=== PATIENT | female | born 1965 | race Caucasian/White ===

== ENCOUNTER → 2016-03-27 | Outpatient (CLI) | payer BC ==
[~2016-03-27] MED LIST: ADVIN25/60 INH; ALBU18002 INH; ALBU1AER9 INH; AMOX500C3 PO; CETI10TA10 PO; CHOL400T PO; CHOLTAB3 PO; CITA10TA8 PO; CYAN500T PO; DAPA1TAB2 PO; DICY20TA35 PO; FLNIN/ NAE; GUAI100L2 PO; HMLI SC; INSDGI SC; LOSA1TAB PO; MAGN400T6 PO; METF500T5 PO; MONT1TAB3 PO; NF34 TOP; NVLGI/PEN SC; OMEP20CA9 PO; PRAV20TA PO; PRED20TA PO; TRAZ50TA35 PO
--- NOTE | 2016-03-27 16:44 | MAMMOGRAPHY REPORT ---
BILATERAL DIGITAL SCREENING MAMMOGRAM TOMOSYNTHESIS WITH CAD: 03/27/2016 CLINICAL HISTORY: Routine screening examination. TECHNIQUE: Breast tomosynthesis in addition to standard 2D mammography was performed. Current study was also evaluated with a Computer Aided Detection (CAD) system. COMPARISON: Comparison is made to exams dated: 03/23/2015 mammogram, 03/18/2014 mammogram, 03/14/2012 m ammogram, 03/17/2013 mammogram, 03/09/2011 mammogram, and 03/11/2010 mammogram - [facility]. BREAST COMPOSITION: The tissue of both breasts is heterogeneously dense, which may obscure small ma sses. FINDINGS: There are decreasing masses in the left breast most likely representing fluctuating cysts. There are a few benign appearing microcalcifications stable in each breast. No new suspicious mas s, architectural distortion or cluster of microcalcifications is seen. IMPRESSION: ACR BI-RADS CATEGORY 1: NEGATIVE There is no mammographic evidence of malignancy. A 1 year screening mammogram is recommended. The p atient will receive written notification of the results. Approximately 10% of breast cancers are not detected with mammography. A negative mammographic repor t should not delay biopsy if a clinically suggestive mass is present. Rachel Machuca M.D. ay/:03/27/2016 16:36:08 Supervisor [employer]: Karissa BRICENO)([place]), [facility] letter sent: Normal 1/2 BI-RADS Code: ACR BI-RADS Category 1: Negative
== END | disposition home or self-care (01) ==
LOC: C.MAMM 07:18
PROVIDERS: ATTEND Obstetrics & Gynecology
DX: Z12.31 Encounter for screening mammogram for malignant neoplasm of breast (principal)

== ENCOUNTER 2016-08-23 22:49 | Emergency (ER) | payer BC, OTHER ==
[~2016-08-23] VITALS: Ht 154.9 cm; Wt 93.9 kg
[~2016-08-23 22:49] MED LIST changes: -ALBU18002 INH; -CETI10TA10 PO; -CHOL400T PO; -DAPA1TAB2 PO; -NVLGI/PEN SC; -TRAZ50TA35 PO
[2016-08-23 22:52] VITALS: TEMP 36.6; Ht 154.9 cm; Wt 93.9 kg
[2016-08-23] MEDS ORDERED: CHOL400T PO (23:20)
[2016-08-23] MEDS ORDERED: INSDGI SC (23:20)
[2016-08-23] MEDS ORDERED: ALBU18002 INH (23:20)
[2016-08-23] MEDS ORDERED: NVLGI/PEN SC (23:20)
[2016-08-23] MEDS ORDERED: DAPA1TAB2 PO (23:20)
[2016-08-23] MEDS ORDERED: CETI10TA10 PO (23:20)
[2016-08-23] MEDS ORDERED: TRAZ50TA35 PO (23:20)
--- NOTE | 2016-08-23 23:24 | EMERGENCY ROOM VISIT NOTE ---
History Report prepared by Maria Victoria: Santana Humphries Under the Supervision of: Dr. Marcelle Freeman D.O. First contact with patient: 22:56 Chief Complaint: OTHER COMPLAINT Stated Complaint: OVERDOSED ON INSULIN History of Present Illness The patient is a 50 year old female who presents to the Emergency Room after accidentally overdosing on her insulin medication approximately 30 minutes prior to arrival. The patient states that she took her "fast acting" insulin medication this evening as she normally would. She then went to take her dosage of prolonged acting insulin, and accidentally substituted her fast acting medication and grossly overdosed. The patient's blood sugar was 187 immediately following the overdose, and was 140 upon arrival to the Emergency Department. The patient states that she does not have low blood sugars often, but when she does she firsts presents with light headedness. She also notes that she was exercising this evening, which can also lower her blood sugars. She is not lightheaded at this time. Source of History: patient Onset: 30 minutes [employer] Position: other (Accidental Medication overdose) Quality: other (Insulin overdose, accidental) Note: Denies light headedness. Review of Systems See HPI for pertinent positives & negatives. A total of 10 systems reviewed and were otherwise negative. Past Medical & Surgical Medical Problems: (1) Asthma (2) Bicuspid aortic valve (3) Diabetes (4) Gastroesophageal reflux disease (5) [place] Teeth Removal Diabetes Social History Smoking Status: Never Smoker Alcohol Use: none Marital Status: Housing Status: lives with family Occupation Status: employed Current/Historical Medications Scheduled Amoxicillin (Amoxil), 2,000 MG PO UD Cetirizine Hcl (Zyrtec), 10 MG PO HS Cholecalciferol (Vitamin D), 400 UNITS PO DAILY Citalopram Hydrobromide (Celexa), 10 MG PO HS Clobetasol Propionate (Clobetasol Propionate), 1 DOSE TOP TW Cyanocobalamin (Vitamin B-12), 500 MCG PO DAILY Dapagliflozin Propanediol (Farxiga), 10 MG PO DAILY Insulin Aspart (Novolog Flexpen), Unknown Dose SC AC Insulin Glargine (Lantus), 27 UNITS SC QPM Losartan Potassium (Cozaar), 25 MG PO HS Magnesium Oxide (Mag-Ox), 400 MG PO BID Montelukast Sodium (Singulair), 10 MG PO HS Omeprazole (Prilosec), 20 MG PO BID Pravastatin Sodium (Pravachol), 20 MG PO HS Scheduled PRN Albuterol Sulfate (Proair Respiclick), 2 PUFFS INH Q4H PRN for SOB/Wheezing Dicyclomine Hcl (Bentyl), 20 MG PO Q6 PRN for ABD PAIN Fluticasone Prop/Salmeterol (Advair Diskus 250/50 60 Dose), 1 PUFF INH BID PRN for ILLNESS Trazodone Hcl (Trazodone), 50 MG PO HS PRN for Sleep Allergies Coded Allergies: Morphine (Verified Allergy, Unknown, VOMITING, NAUSEA, 08/23/16) Pseudoephedrine (Verified Allergy, Unknown, `, 08/23/16) Sulfa Drugs (Verified Allergy, Unknown, 08/23/16) Simvastatin (Verified Adverse Reaction, Intermediate, MUSCLE PAIN, 08/23/16) Physical Exam Vital Signs Date Time Temp Pulse Resp B/P (MAP) Pulse Ox O2 Delivery O2 Flow Rate FiO2 08/24/16 02:19 69 17 120/64 96 08/24/16 01:38 68 16 131/61 96 Room Air 08/23/16 22:52 36.6 72 18 119/66 97 Room Air Physical Exam HEENT: Head - normocephalic and atraumatic Pupils are equal, round, and reactive to light. Extraocular eye muscles are intact, and sclera are anicteric. Nose - moist nasal mucosa without discharge. Mouth - moist buccal mucosa. Oropharynx is nonerythematous and there is no tonsillar exudate or edema noted. Neck: Supple; no JVD, nuchal rigidity, cervical lymphadenopathy. Heart: Regular rate and rhythm. There is a normal S1 and S2 with no murmurs, clicks, or gallops appreciated. Lungs: Clear to auscultation bilaterally with no wheezes, rales, or rhonchi. Abdomen: Soft, completely nontender, nondistended, with good bowel sounds. There are no palpable pulsatile masses or hepatosplenomegaly. There is no guarding, rigidity, or rebound noted. Extremities: No evidence of cyanosis, clubbing, or edema. There are easily palpable peripheral pulses. Skin: warm and dry with good turgor and no rashes. Medical Decision & Procedures Laboratory Results Test 08/24/16 02:11 Bedside Glucose 114 mg/dl (70-90) Laboratory results per my review. ED Course 2300: Past medical records reviewed. The patient was evaluated in room B9. A complete history and physical exam was performed. An IV lock was initiated and labs were drawn as above. The patient's blood sugar was monitored closely. 2311: I checked on the patient at this time. The blood sugar is now 116. 0158: Upon reevaluation, the patient is feeling much better and is ready to go home. The patient's blood sugar remained stable while she was eating. I discussed findings and results with her. She verbalized agreement of the treatment plan. The patient was discharged home. Medical Decision Patient was found to have normal blood pressure on screening and does not require follow-up. I attest that I have personally reviewed the patient's current medication list. The patient is a 50 year old female who presents to the Emergency Department for an accidental Insulin overdose. The patient's blood sugar was monitored closely. The half-life of NovoLog insulin is approximately 1 hour and 40 minutes. She never had an episode of hypoglycemia. She continues to eat. I have asked her to watch her blood sugar at home at least once an hour over the next 2 hours. She should return to the emergency department she develops any symptoms. Impression Primary Impression: Insulin overdose Scribe Attestation The scribe's documentation has been prepared under my direction and personally reviewed by me in its entirety. I confirm that the note above accurately reflects all work, treatment, procedures, and medical decision making performed by me. Departure Information Dispostion Home / Self-Care Referrals Trung Mayberry M.D. (PCP) Forms HOME CARE DOCUMENTATION FORM, IMPORTANT VISIT INFORMATION, WORK / SCHOOL INSTRUCTIONS Patient Instructions My [facility] Additional Instructions Rest. Watch your BSG hourly for next 2 hours Problem Qualifiers Primary Impression: Insulin overdose Encounter type: initial encounter Injury intent: accidental or unintentional Qualified Codes: T38.3X1A - Poisoning by insulin and oral hypoglycemic [antidiabetic] drugs, accidental (unintentional), initial encounter
[2016-08-24 02:19] VITALS: BP 120/64; PULSE 69; O2SAT 96
== END 2016-08-24 02:20 | disposition home or self-care (01) ==
LOC: C.EDB 22:51
DX: T38.3X1A Poisoning by insulin and oral hypoglycemic [antidiabetic] drugs, accidental (unintentional), initial encounter (principal); E11.9 Type 2 diabetes mellitus without complications; K21.9 Gastro-esophageal reflux disease without esophagitis; J45.909 Unspecified asthma, uncomplicated; Z79.4 Long term (current) use of insulin; Z79.899 Other long term (current) drug therapy; Z88.2 Allergy status to sulfonamides; Z88.5 Allergy status to narcotic agent; Z88.8 Allergy status to other drugs, medicaments and biological substances

== ENCOUNTER 2017-02-24 22:31 | Emergency (ER) | payer BC, OTHER ==
[~2017-02-24] VITALS: Ht 154.9 cm; Wt 93.8 kg
[~2017-02-24 22:31] MED LIST changes: +ALBU18002 INH; -ALBU1AER9 INH; +CETI10TA10 PO; +CHOL400T PO; -CHOLTAB3 PO; +DAPA1TAB8 PO; -FLNIN/ NAE; -GUAI100L2 PO; -HMLI SC; -METF500T5 PO; +NVLGI/PEN SC; -PRED20TA PO; +TRAZ50TA35 PO
[2017-02-24 22:40] VITALS: TEMP 36.5; Ht 154.9 cm; Wt 93.8 kg
[2017-02-25] MEDS ORDERED: ONDANSETRON INJ 2 MG/ML 2 ML VIAL IV STA (00:07)
[2017-02-25] MEDS ORDERED: SODIUM CHLORIDE 0.9% 1000ML 1,000 ML IV STA (00:07)
[2017-02-25] MEDS ORDERED: NALT1TAB14 PO (00:12)
[2017-02-25] MEDS ORDERED: ROSU40TA PO (00:14)
[2017-02-25 00:17] LABS: BASO % 0.1 %; BASO ABS # 0.01 K/uL (0-0.2); EOS % 2.1 %; EOS ABS # 0.21 K/uL (0-0.5); HEMATOCRIT 44.7 % (37-47); HEMOGLOBIN 14.8 g/dL (12.0-16.0); IG# 0.03 K/uL (0.00-0.02); LYMPH % 7.6 %; LYMPH ABS # 0.75 K/uL (1.2-3.4); MEAN CELL VOLUME 78.4 fL (80-100); MEAN CORPUSCULAR HGB CONC 33.1 g/dl (32-36); MEAN PLATELET VOLUME 9.5 fL (7.4-10.4); MONO % 2.4 %; MONO ABS # 0.24 K/uL (0.11-0.59); NEUT % 87.5 %; NEUT ABS # 8.64 K/uL (1.4-6.5); PLATELET COUNT 262 K/uL (130-400); RED CELL DISTRIBUTION WIDTH CV 15.3 % (11.5-14.5); RED CELL DISTRIBUTION WIDTH SD 43.4 fL (36.4-46.3); WHITE BLOOD COUNT 9.88 K/uL (4.8-10.8)
[2017-02-25] MEDS ORDERED: MONT1TAB3 PO (00:21)
[2017-02-25 00:25] LABS: ALBUMIN 4.2 gm/dl (3.4-5.0); CALCIUM 8.7 mg/dl (8.5-10.1); CREATININE 0.98 mg/dl (0.60-1.20); POTASSIUM 4.1 mmol/L (3.5-5.1)
[2017-02-25 00:28] LABS: TOTAL PROTEIN 8.2 gm/dl (6.4-8.2)
[2017-02-25] MEDS ORDERED: ONDA4TAB10 SL (01:29)
--- NOTE | 2017-02-25 01:29 | EMERGENCY ROOM VISIT NOTE ---
History Report prepared by Maria Victoria: Brett Singleton Under the Supervision of: Dr. Oseas Leggett D.O. First contact with patient: 23:12 Chief Complaint: VOMITING Stated Complaint: VOMITING, SOILING, STOMACH PAIN Nursing Triage Summary: c/o vomiting, diarrhea and abd pain since 1700. History of Present Illness The patient is a 51 year old female who presents to the Emergency Room with complaints of worsening abdominal pain that began 4 hours ago. She has associated symptoms of vomiting and diarrhea. Patient adds that she has been unable to keep anything down. She states she has had vomiting and diarrhea symptoms before but the abdominal pain is unusual. Patient adds that she has been diabetic for 2 years. She currently takes Farxiga. She states she woke up this morning feeling nauseas but her nausea was resolved after she ate breakfast. Patient adds that she has only used her insulin once today. Source of History: patient Onset: 4 hours ago Position: abdomen Timing: worsening Associated Symptoms: + vomiting, + diarrhea Review of Systems See HPI for pertinent positives & negatives. A total of 10 systems reviewed and were otherwise negative. Past Medical & Surgical Medical Problems: (1) Asthma (2) Bicuspid aortic valve (3) Diabetes (4) Gastroesophageal reflux disease (5) [place] Teeth Removal Family History No pertinent family history. Social History Smoking Status: Never Smoker Alcohol Use: none Marital Status: Housing Status: lives with family Occupation Status: employed Current/Historical Medications Scheduled Amoxicillin (Amoxil), 2,000 MG PO UD Cetirizine Hcl (Zyrtec), 10 MG PO HS Cholecalciferol (Vitamin D), 400 UNITS PO DAILY Citalopram Hydrobromide (Celexa), 10 MG PO HS Clobetasol Propionate (Clobetasol Propionate), 1 DOSE TOP TW Cyanocobalamin (Vitamin B-12), 500 MCG PO DAILY Dapagliflozin Propanediol (Farxiga), 10 MG PO DAILY Insulin Aspart (Novolog Flexpen), Unknown Dose SC AC Insulin Glargine (Lantus), 27 UNITS SC QPM Losartan Potassium (Cozaar), 25 MG PO HS Magnesium Oxide (Mag-Ox), 400 MG PO BID Montelukast Sodium (Singulair), 10 MG PO HS Naltrexone HCl-Bupropion HCl (Contrave 8-90 mg), 2 TABS PO BIDM Omeprazole (Prilosec), 20 MG PO BID Ondasetron Odt (Zofran Odt), 4 MG SL Q6H Pravastatin Sodium (Pravachol), 20 MG PO HS Scheduled PRN Albuterol Sulfate (Proair Respiclick), 2 PUFFS INH Q4H PRN for SOB/Wheezing Dicyclomine Hcl (Bentyl), 20 MG PO Q6 PRN for ABD PAIN Fluticasone Prop/Salmeterol (Advair Diskus 250/50 60 Dose), 1 PUFF INH BID PRN for ILLNESS Trazodone Hcl (Trazodone), 50 MG PO HS PRN for Sleep Allergies Coded Allergies: Morphine (Verified Allergy, Unknown, VOMITING, NAUSEA, 08/23/16) Pseudoephedrine (Verified Allergy, Unknown, `, 08/23/16) Sulfa Drugs (Verified Allergy, Unknown, 08/23/16) Simvastatin (Verified Adverse Reaction, Intermediate, MUSCLE PAIN, 08/23/16) Physical Exam Vital Signs Date Time Temp Pulse Resp B/P (MAP) Pulse Ox O2 Delivery O2 Flow Rate FiO2 02/25/17 00:34 93 20 142/92 96 Room Air 02/24/17 22:40 36.5 95 20 123/87 94 Room Air Physical Exam CONSTITUTIONAL/VITAL SIGNS: Reviewed / noted above. GENERAL: Non-toxic in appearance. INTEGUMENTARY: Warm, dry, and [place]. HEAD: Normocephalic. EYES: without scleral icterus or trauma. ENT/OROPHARYNX: clear and moist. LYMPHADENOPATHY/NECK: Is supple without lymphadenopathy or meningismus. RESPIRATORY: Lungs clear and equal. CARDIOVASCULAR: Regular rate and rhythm. GI/ABDOMEN: Soft and nontender. No organomegaly or pulsatile mass. No rebound or guarding. Normal bowel sounds. EXTREMITIES: Warm and well perfused. BACK: No CVA tenderness. NEUROLOGICAL: Intact without focal deficits. PSYCHIATRIC: normal affect. MUSCULOSKELETAL: Normally developed with good muscle tone. Medical Decision & Procedures Laboratory Results 02/24/17 22:54 Red Blood Count 5.70, Mean Corpuscular Volume 78.4, Mean Corpuscular Hemoglobin 26.0, Mean Corpuscular Hemoglobin Concent 33.1, Mean Platelet Volume 9.5, Neutrophils (%) (Auto) 87.5, Lymphocytes (%) (Auto) 7.6, Monocytes (%) (Auto) 2.4, Eosinophils (%) (Auto) 2.1, Basophils (%) (Auto) 0.1, Neutrophils # (Auto) 8.64, Lymphocytes # (Auto) 0.75, Monocytes # (Auto) 0.24, Eosinophils # (Auto) 0.21, Basophils # (Auto) 0.01 02/24/17 22:54 Test 02/24/17 22:54 02/25/17 00:30 White Blood Count 9.88 K/uL (4.8-10.8) Red Blood Count 5.70 M/uL (4.2-5.4) Hemoglobin 14.8 g/dL (12.0-16.0) Hematocrit 44.7 % (37-47) Mean Corpuscular Volume 78.4 fL (80-100) Mean Corpuscular Hemoglobin 26.0 pg (25-34) Mean Corpuscular Hemoglobin Concent 33.1 g/dl (32-36) Platelet Count 262 K/uL (130-400) Mean Platelet Volume 9.5 fL (7.4-10.4) Neutrophils (%) (Auto) 87.5 % Lymphocytes (%) (Auto) 7.6 % Monocytes (%) (Auto) 2.4 % Eosinophils (%) (Auto) 2.1 % Basophils (%) (Auto) 0.1 % Neutrophils # (Auto) 8.64 K/uL (1.4-6.5) Lymphocytes # (Auto) 0.75 K/uL (1.2-3.4) Monocytes # (Auto) 0.24 K/uL (0.11-0.59) Eosinophils # (Auto) 0.21 K/uL (0-0.5) Basophils # (Auto) 0.01 K/uL (0-0.2) RDW Standard Deviation 43.4 fL (36.4-46.3) RDW Coefficient of Variation 15.3 % (11.5-14.5) Immature Granulocyte % (Auto) 0.3 % Immature Granulocyte # (Auto) 0.03 K/uL (0.00-0.02) Anion Gap 8.0 mmol/L (3-11) Est Creatinine Clear Calc Drug Dose 71.0 ml/min Estimated GFR () 77.4 Estimated GFR (Non- 66.8 BUN/Creatinine Ratio 13.8 (10-20) Calcium Level 8.7 mg/dl (8.5-10.1) Total Bilirubin 0.8 mg/dl (0.2-1) Direct Bilirubin 0.1 mg/dl (0-0.2) Aspartate Amino Transf (AST/SGOT) 20 U/L (15-37) Alanine Aminotransferase (ALT/SGPT) 31 U/L (12-78) Alkaline Phosphatase 98 U/L (45-117) Total Protein 8.2 gm/dl (6.4-8.2) Albumin 4.2 gm/dl (3.4-5.0) Lipase 163 U/L (73-393) Urine Color YELLOW Urine Appearance CLEAR (CLEAR) Urine pH 5.5 (4.5-7.5) Urine Specific [place] 1.037 (1.000-1.030) Urine Protein NEG (NEG) Urine Glucose (UA) 3+ (NEG) Urine Ketones 3+ (NEG) Urine Occult Blood NEG (NEG) Urine Nitrite NEG (NEG) Urine Bilirubin NEG (NEG) Urine Urobilinogen NEG (NEG) Urine Leukocyte Esterase NEG (NEG) Urine WBC (Auto) 1-5 /hpf (0-5) Urine RBC (Auto) 0-4 /hpf (0-4) Urine Hyaline Casts (Auto) 0 /lpf (0-5) Urine Epithelial Cells (Auto) 5-10 /lpf (0-5) Urine Bacteria (Auto) NEG (NEG) Laboratory results as stated above per my review. Medications Administered Medications (Trade) Dose Ordered Sig/Javier Route Start Time Stop Time Status Last Admin Dose Admin Sodium Chloride 1,000 ml @ 999 mls/hr Q1H1M STAT IV 02/25/17 00:07 02/25/17 01:07 DC 02/25/17 00:14 999 MLS/HR Ondansetron HCl (Zofran Inj) 4 mg NOW STAT IV 02/25/17 00:07 02/25/17 00:08 DC 02/25/17 00:12 4 MG ED Course 2315: Previous medical records were reviewed. The patient was evaluated in room A9B. A complete history and physical examination was performed. 0007: Zofran Inj 4mg IV, Sodium Chloride 1000 ml @ 999 mls/hr IV 0110: On reevaluation, the patient is resting comfortably. I discussed the results and findings with the patient. She verbalized agreement of the treatment plan. She was discharged home. Medical Decision Differential considered: pancreatitis, hepatitis, or acute cholecystitis, AAA, UTI, pyelonephritis, kidney stones, appendicitis, diverticulitis, shingles, bowel obstruction mesenteric ischemia, intussusception,hernia, testicular torsion, ovarian torsion, ruptured ovarian cyst,ectopic , . This is a 51-year-old female who presents to the ED with a chief complaint of nausea, vomiting and diarrhea. The patient states that her symptoms started around 5 PM. She also reported some abdominal cramps associated with the vomiting and diarrhea. She reports a history of diabetes. She states that she feels like she might be dehydrated. She denies any other significant symptoms. Her physical exam did not reveal any focal abdominal tenderness. Her CBC is unremarkable, complete metabolic panel was within normal limits, glucose was 164 , lipase was negative. Urine shows 3+ ketones. The patient was hydrated with IV fluids 1 L normal saline. She was given Zofran IV. She will be discharged on Zofran ODT. Medication Reconcilliation Current Medication List: was personally reviewed by me Blood Pressure Screening Patient's blood pressure: Normal blood pressure Blood pressure disposition: Did not require urgent referral Impression Primary Impression: Nausea, vomiting, and diarrhea Scribe Attestation The scribe's documentation has been prepared under my direction and personally reviewed by me in its entirety. I confirm that the note above accurately reflects all work, treatment, procedures, and medical decision making performed by me. Departure Information Dispostion Home / Self-Care Prescriptions Ondasetron Odt (ZOFRAN ODT) 4 Mg Tab 4 MG SL Q6H for Nausea, #15 TAB Prov: Oseas Leggett D.O. 02/25/17 Referrals No Doctor, Assigned (PCP) Forms HOME CARE DOCUMENTATION FORM, IMPORTANT VISIT INFORMATION Patient Instructions [facility] Additional Instructions Zofran: Allow one tablet to dissolve under the tongue every 6 hours as needed for nausea or vomiting. Follow-up with your doctor for further care and evaluation in 1-2 days. Return to the emergency department for worsening or new symptoms or any concerns. You have been examined and treated today on an emergency basis only. This is not a substitute for, or an effort to provide, complete comprehensive medical care. It is impossible to recognize and treat all injuries or illnesses in a single emergency department visit. It is therefore important that you follow up closely with your doctor. Call as soon as possible for an appointment.
[2017-02-25 01:39] VITALS: BP 123/72; PULSE 90; O2SAT 92
== END 2017-02-25 01:48 | disposition home or self-care (01) ==
LOC: C.EDB 22:32 → C.EDA 02-25 01:48
DX: R11.2 Nausea with vomiting, unspecified (principal); R19.7 Diarrhea, unspecified; R10.9 Unspecified abdominal pain; E11.9 Type 2 diabetes mellitus without complications; J45.909 Unspecified asthma, uncomplicated; Q23.1 Congenital insufficiency of aortic valve; K21.9 Gastro-esophageal reflux disease without esophagitis; Z79.4 Long term (current) use of insulin

== ENCOUNTER 2017-09-26 13:45 | Emergency (ER) | payer BC, OTHER ==
[~2017-09-26] VITALS: Ht 154.9 cm; Wt 96.6 kg
[~2017-09-26 13:45] MED LIST changes: +NALT1TAB14 PO
[2017-09-26 14:03] VITALS: TEMP 37
[2017-09-26] MEDS ORDERED: DIAZEPAM INJ 5 MG/ML 2 ML CARP IV STA (14:20)
[2017-09-26] MEDS ORDERED: ONDANSETRON INJ 2 MG/ML 2 ML VIAL IV STA (14:20)
[2017-09-26] MEDS ORDERED: SODIUM CHLORIDE 0.9% 1000ML 1,000 ML IV STA (14:20)
[2017-09-26 14:24] VITALS: O2SAT 94; Ht 154.9 cm; Wt 96.6 kg
[2017-09-26] MEDS ORDERED: DIAZEPAM 5 MG/ML INJ 10ML VIAL ONE (14:32)
[2017-09-26 14:35] LABS: BASO % 0.5 %; BASO ABS # 0.03 K/uL (0-0.2); EOS % 5.5 %; EOS ABS # 0.35 K/uL (0-0.5); HEMATOCRIT 43.2 % (37-47); HEMOGLOBIN 15.2 g/dL (12.0-16.0); IG# 0.01 K/uL (0.00-0.02); LYMPH % 25.8 %; LYMPH ABS # 1.63 K/uL (1.2-3.4); MEAN CELL VOLUME 82.1 fL (80-100); MEAN CORPUSCULAR HEMOGLOBIN 28.9 pg (25-34); MEAN CORPUSCULAR HGB CONC 35.2 g/dl (32-36); MEAN PLATELET VOLUME 9.1 fL (7.4-10.4); MONO % 6.3 %; NEUT % 61.7 %; PLATELET COUNT 187 K/uL (130-400); RED CELL DISTRIBUTION WIDTH CV 13.1 % (11.5-14.5); RED CELL DISTRIBUTION WIDTH SD 39.2 fL (36.4-46.3); WHITE BLOOD COUNT 6.32 K/uL (4.8-10.8)
--- NOTE | 2017-09-26 14:41 | DIAGNOSTIC IMAGING REPORT ---
CHEST ONE VIEW PORTABLE CLINICAL HISTORY: 51 years-old Female presenting with EVALUATE ALTERED MENTAL STATUS/WEAKNESS. TECHNIQUE: Portable upright AP view of the chest was obtained. COMPARISON: 07/18/2015. FINDINGS: Cardiac silhouette mildly enlarged. Lungs and pleural spaces clear. Osseous structures normal. Upper abdomen normal. IMPRESSION: 1. Mild cardiomegaly suggested this may be due to AP technique. Otherwise no acute cardiopulmonary disease. Electronically signed by: Bjorn Montoya M.D. 09/26/2017 2:40 PM Dictated Date/Time: 09/26/2017 2:39 PM
[2017-09-26 14:48] LABS: PTT PATIENT 23.3 SECONDS (21.0-31.0)
--- NOTE | 2017-09-26 15:00 | DIAGNOSTIC IMAGING REPORT ---
HEAD CT NONCONTRAST CT DOSE: 679.75 mGycm HISTORY: EVALUATE ALTERED MENTAL STATUS/WEAKNESS TECHNIQUE: Multiaxial CT images of the head were performed without the use of intravenous contrast. Automated exposure control was utilized for this study. A dose lowering technique was utilized adhering to the principles of ALARA. Comparison: Head CT 12/12/2012. Findings: The paranasal sinuses and mastoid air cells are clear. The calvarium and skull base are intact. The ventricles and sulci are within normal limits. There is no mass, hematoma, midline shift, or acute infarct. Impression: No acute intracranial abnormality. Electronically signed by: Munir Paul M.D. 09/26/2017 2:58 PM Dictated Date/Time: 09/26/2017 2:52 PM
[2017-09-26 15:12] LABS: ALBUMIN 3.7 gm/dl (3.4-5.0); ALKALINE PHOSPHATASE 86 U/L (45-117); ALT/SGPT 26 U/L (12-78); AST/SGOT 14 U/L (15-37); BLOOD UREA NITROGEN 16 mg/dl (7-18); CALCIUM 8.6 mg/dl (8.5-10.1); CARBON DIOXIDE 27 mmol/L (21-32); GLUCOSE 120 mg/dl (70-99); POTASSIUM 3.8 mmol/L (3.5-5.1); SODIUM 138 mmol/L (136-145); TOTAL PROTEIN 7.6 gm/dl (6.4-8.2)
[2017-09-26] MEDS ORDERED: ACETAMINOPHEN 500 MG TAB PO STA (15:21)
[2017-09-26] MEDS ORDERED: MECL1TAB42 PO (15:31)
[2017-09-26] MEDS ORDERED: ONDA4TAB10 SL (15:31)
[2017-09-26 15:45] VITALS: BP 115/71; PULSE 74; O2SAT 95
[2017-09-26] MEDS ORDERED: LIDOCAINE HCL 1% 20 ML VIAL ONE (16:14)
--- NOTE | 2017-09-26 18:04 | EMERGENCY ROOM VISIT NOTE ---
History Report prepared by Maria Victoria: Li Reyes Under the Supervision of: Dr. Michael Michel D.O. First contact with patient: 14:14 Chief Complaint: VERTIGO Stated Complaint: VERTIGO,VOMITING,HEADACHE,DIABETIC History of Present Illness The patient is a 51 year old female who presents to the Emergency Room with complaints of constant vertigo starting this morning. The patient states that she has a history of vertigo and last had a episode a few years ago. She notes that she intermittently gets it when she rolls over in bed, but it instantly goes away. She reports that she woke up with it this morning and is unable to control it at home. She reports that it feels like "more of a roll rather than a spin." The patient notes that it is worse when she stands up. She states that she vomits when she stands. The patient complains of nausea, a headache, and feeling off balance when she walks. The patient notes that she is a Diabetic and is not able to keep even liquids down. She states that she is unsure what her sugar levels are and last checked last night. The patient denies weakness, tinnitus, a history of CVA, and talking to her PCP about this episode. Source of History: patient Onset: this morning Quality: other (vertigo) Timing: constant Modifying Factors (Worsening): other (standing up) Associated Symptoms: + headache, + nausea, + vomiting, No weakness Note: The patient complains of feeling off balance when she walks. The patient denies tinnitus. Review of Systems See HPI for pertinent positives & negatives. A total of 10 systems reviewed and were otherwise negative. Past Medical & Surgical Medical Problems: (1) Asthma (2) Bicuspid aortic valve (3) Diabetes (4) Gastroesophageal reflux disease (5) Hx of vertigo (6) [place] Teeth Removal Family History Cancer Diabetes mellitus Gallbladder disease Heart disease Hypertension Social History Smoking Status: Never Smoker Alcohol Use: none Marital Status: Housing Status: lives with family Occupation Status: employed Current/Historical Medications Scheduled Amoxicillin (Amoxil), 2,000 MG PO UD Cetirizine Hcl (Zyrtec), 10 MG PO HS Cholecalciferol (Vitamin D), 400 UNITS PO DAILY Citalopram Hydrobromide (Celexa), 10 MG PO HS Clobetasol Propionate (Clobetasol Propionate), 1 DOSE TOP TW Cyanocobalamin (Vitamin B-12), 500 MCG PO DAILY Dapagliflozin Propanediol (Farxiga), 10 MG PO DAILY Insulin Aspart (Novolog Flexpen), Unknown Dose SC AC Insulin Glargine (Lantus), 27 UNITS SC QPM Losartan Potassium (Cozaar), 25 MG PO HS Magnesium Oxide (Mag-Ox), 400 MG PO BID Montelukast Sodium (Singulair), 10 MG PO HS Naltrexone HCl-Bupropion HCl (Contrave 8-90 mg), 2 TABS PO BIDM Omeprazole (Prilosec), 20 MG PO BID Ondasetron Odt (Zofran Odt), 4 MG SL Q6H Pravastatin Sodium (Pravachol), 20 MG PO HS Scheduled PRN Albuterol Sulfate (Proair Respiclick), 2 PUFFS INH Q4H PRN for SOB/Wheezing Dicyclomine Hcl (Bentyl), 20 MG PO Q6 PRN for ABD PAIN Fluticasone Prop/Salmeterol (Advair Diskus 250/50 60 Dose), 1 PUFF INH BID PRN for ILLNESS Meclizine Hcl (Meclizine Hcl), 1 TAB PO TID PRN for Dizziness or Vertigo Trazodone Hcl (Trazodone), 50 MG PO HS PRN for Sleep Allergies Coded Allergies: Morphine (Verified Allergy, Unknown, VOMITING, NAUSEA, 08/23/16) Pseudoephedrine (Verified Allergy, Unknown, `, 08/23/16) Sulfa Drugs (Verified Allergy, Unknown, 08/23/16) Simvastatin (Verified Adverse Reaction, Intermediate, MUSCLE PAIN, 08/23/16) Physical Exam Vital Signs Date Time Temp Pulse Resp B/P (MAP) Pulse Ox O2 Delivery O2 Flow Rate FiO2 09/26/17 15:45 74 16 115/71 95 09/26/17 15:35 70 14 95 09/26/17 15:31 115/71 09/26/17 15:30 69 16 90 09/26/17 15:25 73 17 91 09/26/17 15:20 68 15 91 09/26/17 15:15 70 16 90 09/26/17 15:10 67 18 92 09/26/17 15:09 68 16 132/66 94 Room Air 09/26/17 15:07 132/66 8/8/18 14:42 77 09/26/17 14:40 77 19 09/26/17 14:24 94 Room Air 09/26/17 14:03 37.0 78 20 119/80 93 Room Air Physical Exam GENERAL: Patient is awake, alert, and in no acute distress. Patient is resting comfortably and showing no signs of anxiety EYES: The conjunctivae are clear. The pupils are round and reactive. EARS, NOSE, MOUTH AND THROAT: TMs are clear bilaterally. The nose is without any evidence of any deformity. Mucous membranes are moist. Tongue is midline NECK: The neck is nontender and supple. RESPIRATORY: Normal respiratory effort is noted. There is no evidence of wheezing rhonchi or rales to auscultation. CARDIOVASCULAR: Regular rate and rhythm noted. There no murmurs rubs or gallops normal S1 normal S2 GASTROINTESTINAL: The abdomen is soft. Bowel sounds are present in all quadrants. Abdomen is nontender. MUSCULOSKELETAL/EXTREMITIES: There is no evidence of gross deformity. Full range of motion is noted in the hips and shoulders. SKIN: There is no obvious evidence of any rash. There are no petechiae, pallor or cyanosis noted. NEUROLOGIC: Patient is awake alert and oriented x3. Strength is symmetric. Patellar reflexes are 2+ bilaterally. Medical Decision & Procedures ER Provider Diagnostic Interpretation: Radiology results as stated below per my review and radiologist interpretation: HEAD CT NONCONTRAST CT DOSE: 679.75 mGycm HISTORY: EVALUATE ALTERED MENTAL STATUS/WEAKNESS TECHNIQUE: Multiaxial CT images of the head were performed without the use of intravenous contrast. Automated exposure control was utilized for this study. A dose lowering technique was utilized adhering to the principles of ALARA. Comparison: Head CT 12/12/2012. Findings: The paranasal sinuses and mastoid air cells are clear. The calvarium and skull base are intact. The ventricles and sulci are within normal limits. There is no mass, hematoma, midline shift, or acute infarct. Impression: No acute intracranial abnormality. Electronically signed by: Munir Paul M.D. 09/26/2017 2:58 PM Dictated Date/Time: 09/26/2017 2:52 PM CHEST ONE VIEW PORTABLE CLINICAL HISTORY: 51 years-old Female presenting with EVALUATE ALTERED MENTAL STATUS/WEAKNESS. TECHNIQUE: Portable upright AP view of the chest was obtained. COMPARISON: 07/18/2015. FINDINGS: Cardiac silhouette mildly enlarged. Lungs and pleural spaces clear. Osseous structures normal. Upper abdomen normal. IMPRESSION: 1. Mild cardiomegaly suggested this may be due to AP technique. Otherwise no acute cardiopulmonary disease. Electronically signed by: Bjorn Montoya M.D. 09/26/2017 2:40 PM Dictated Date/Time: 09/26/2017 2:39 PM Laboratory Results 09/26/17 14:20 Red Blood Count 5.26, Mean Corpuscular Volume 82.1, Mean Corpuscular Hemoglobin 28.9, Mean Corpuscular Hemoglobin Concent 35.2, Mean Platelet Volume 9.1, Neutrophils (%) (Auto) 61.7, Lymphocytes (%) (Auto) 25.8, Monocytes (%) (Auto) 6.3, Eosinophils (%) (Auto) 5.5, Basophils (%) (Auto) 0.5, Neutrophils # (Auto) 3.90, Lymphocytes # (Auto) 1.63, Monocytes # (Auto) 0.40, Eosinophils # (Auto) 0.35, Basophils # (Auto) 0.03 09/26/17 14:20 Test 09/26/17 14:20 White Blood Count 6.32 K/uL (4.8-10.8) Red Blood Count 5.26 M/uL (4.2-5.4) Hemoglobin 15.2 g/dL (12.0-16.0) Hematocrit 43.2 % (37-47) Mean Corpuscular Volume 82.1 fL (80-100) Mean Corpuscular Hemoglobin 28.9 pg (25-34) Mean Corpuscular Hemoglobin Concent 35.2 g/dl (32-36) Platelet Count 187 K/uL (130-400) Mean Platelet Volume 9.1 fL (7.4-10.4) Neutrophils (%) (Auto) 61.7 % Lymphocytes (%) (Auto) 25.8 % Monocytes (%) (Auto) 6.3 % Eosinophils (%) (Auto) 5.5 % Basophils (%) (Auto) 0.5 % Neutrophils # (Auto) 3.90 K/uL (1.4-6.5) Lymphocytes # (Auto) 1.63 K/uL (1.2-3.4) Monocytes # (Auto) 0.40 K/uL (0.11-0.59) Eosinophils # (Auto) 0.35 K/uL (0-0.5) Basophils # (Auto) 0.03 K/uL (0-0.2) RDW Standard Deviation 39.2 fL (36.4-46.3) RDW Coefficient of Variation 13.1 % (11.5-14.5) Immature Granulocyte % (Auto) 0.2 % Immature Granulocyte # (Auto) 0.01 K/uL (0.00-0.02) Prothrombin Time 10.0 SECONDS (9.0-12.0) Prothromb Time International Ratio 1.0 (0.9-1.1) Activated Partial Thromboplast Time 23.3 SECONDS (21.0-31.0) Partial Thromboplastin Ratio 0.9 Anion Gap 5.0 mmol/L (3-11) Est Creatinine Clear Calc Drug Dose 88.4 ml/min Estimated GFR () 98.9 Estimated GFR (Non- 85.4 BUN/Creatinine Ratio 20.2 (10-20) Calcium Level 8.6 mg/dl (8.5-10.1) Magnesium Level 2.2 mg/dl (1.8-2.4) Total Bilirubin 0.7 mg/dl (0.2-1) Direct Bilirubin 0.2 mg/dl (0-0.2) Aspartate Amino Transf (AST/SGOT) 14 U/L (15-37) Alanine Aminotransferase (ALT/SGPT) 26 U/L (12-78) Alkaline Phosphatase 86 U/L (45-117) Troponin I < 0.015 ng/ml (0-0.045) Total Protein 7.6 gm/dl (6.4-8.2) Albumin 3.7 gm/dl (3.4-5.0) Thyroid Stimulating Hormone (TSH) 0.990 uIu/ml (0.300-4.500) Laboratory results per my review. Medications Administered Medications (Trade) Dose Ordered Sig/Javier Route Start Time Stop Time Status Last Admin Dose Admin Ondansetron HCl (Zofran Inj) 4 mg NOW STAT IV 09/26/17 14:20 09/26/17 14:22 DC 09/26/17 14:35 4 MG Sodium Chloride 1,000 ml @ 999 mls/hr Q1H1M STAT IV 09/26/17 14:20 09/26/17 15:20 DC 09/26/17 14:35 999 MLS/HR Diazepam (Valium Inj) 5 mg STK-MED ONCE .ROUTE 09/26/17 14:32 09/26/17 14:33 DC 09/26/17 14:39 2.5 MG Acetaminophen (Tylenol Tab) 1,000 mg NOW STAT PO 09/26/17 15:21 09/26/17 15:22 DC 09/26/17 15:36 1,000 MG ECG Per My Interpretation Indication: vomiting Rate (beats per minute): 67 Rhythm: normal sinus Findings: no ectopy, other (no acute ST segments) Comparison ECG Date: Change: no significant change ED Course 1415: The patient was evaluated in room A4B. A complete history and physical examination were performed. 1420: Ordered Valium Inj 2.5 mg IV, NSS 1000 ml @ 999 mls/hr IV, Zofran Inj 4 mg IV. 1521: Ordered Acetaminophen 1000 mg PO. 1527: Upon reevaluation, the patient is resting comfortably. I discussed the results and treatment plan with her. She verbalized agreement of the treatment plan. The patient was discharged home. Medical Decision Differential diagnosis: Etiologies such as benign positional vertigo, dehydration, hypovolemia, anemia, tumor, infection, hypoglycemia, electrolyte abnormalities, cardiac sources, intracerebral event, toxicologic, neurologic, as well as others were entertained. Nursing notes reviewed. The patient is a 51-year-old female who presented to the emergency department for an evaluation of vertigo. The patient did not have any focal neurologic deficits. The patient was treated with Valium as well as well as Zofran. She was reevaluated multiple times. On subsequent reevaluation she was feeling much better. I discussed patient's laboratory and radiographic studies with her. I also discussed some of the causes of vertigo with her. She states that she has had similar symptoms in the past. She was encouraged to rest and avoid any strenuous activity. I also encouraged her to avoid driving a vehicle while she was still symptomatic. I also recommended that she follow-up with her primary care physician for further evaluation or possibly ENT referral or possibly even MRI of the brain if symptoms do not improve. Otherwise I recommended that she return to the emergency department immediately if symptoms change worsen or the need arises. Medication Reconcilliation Current Medication List: was personally reviewed by me Blood Pressure Screening Patient's blood pressure: Normal blood pressure Blood pressure disposition: Did not require urgent referral Impression Primary Impression: Vertigo Scribe Attestation The scribe's documentation has been prepared under my direction and personally reviewed by me in its entirety. I confirm that the note above accurately reflects all work, treatment, procedures, and medical decision making performed by me. Departure Information Dispostion Home / Self-Care Prescriptions Meclizine Hcl (MECLIZINE HCL) 25 Mg Tab 1 TAB PO TID Y for Dizziness or Vertigo for 10 Days, #30 TAB Prov: Michael Michel, DO 09/26/17 Ondasetron Odt (ZOFRAN ODT) 4 Mg Tab 4 MG SL Q6H for Nausea, #15 TAB Prov: Michael Michel, DO 09/26/17 Referrals Trung Mayberry M.D. (PCP) Forms HOME CARE DOCUMENTATION FORM, IMPORTANT VISIT INFORMATION, WORK / SCHOOL INSTRUCTIONS Patient Instructions My [facility] Additional Instructions Continue all medications as prescribed. Drink plenty clear liquids and keep herself well-hydrated. Call your family doctor to schedule a follow-up appointment. You may require further study such as an MRI of the brain or possibly a referral to an ear nose and throat physician to further evaluate the cause your symptoms.
== END 2017-09-26 15:47 | disposition home or self-care (01) ==
LOC: C.EDB 13:46 → C.EDA 15:47
DX: R42 Dizziness and giddiness (principal); J45.909 Unspecified asthma, uncomplicated; Q23.1 Congenital insufficiency of aortic valve; E11.9 Type 2 diabetes mellitus without complications; Z79.4 Long term (current) use of insulin; Z88.5 Allergy status to narcotic agent; Z88.8 Allergy status to other drugs, medicaments and biological substances; Z88.2 Allergy status to sulfonamides

== ENCOUNTER 2020-03-16 06:38 | Inpatient (IN) ==
--- NOTE | 2020-03-16 06:56 | Emergency Department Note ---
Impression & Plan Pancreatitis, Acute epigastric pain, Nausea & vomiting ED Provider Note NAME: HERMAN MOREL AGE: 54 SEX: F ARRIVES VIA: Walk-In INFORMANT: Patient, ED PROVIDER(S): Sabino Staples MD CHIEF COMPLAINT: Abdominal pain PLAN: Disposition: Admit MEDICAL DECISION MAKING: The patient is a pleasant 54-year-old woman with a past medical history of type 2 diabetes on insulin, GERD, asthma, hyperlipidemia, hypertension, gastroparesis who presents emergency department with upper and left-sided abdominal pain with associated nausea and vomiting that evolved over the past 4 days without improvement of her Bentyl. She denies any diarrhea. She denies any cough, congestion, fevers, chills, chest pain, shortness of breath. Denies any known COVID-19 exposures. On arrival the patient is fatigued in no acute distress, afebrile stable vital signs. She has mild discomfort of the epigastric and left upper and lower quadrants. No guarding or rebound. WBC 12.7, nonspecific. H/H, platelets wnl. Glucose 200s; chemistry without acidosis. LFTs and electrolytes unremarkable. Lipase wnl. Covid-19 RNA, NAAT was negative. CT abdomen/pelvis demonstrates mild to moderate stranding and fluid centered on the pancreatic tail consistent with acute pancreatitis. Upon re-evaluation the patient patient reports worsening pain despite initial improvement with IVF hydration, Pepcid, apap, Reglan, diphenhydramine. Given persistent symptoms 2/2 new diagnosis of pancreatitis she did agree and prefer admission. Patient ordered Fentanyl as she reports Morphine historically "leaves her with nausea and vomiting for weeks". Case discussed with [facility] admitting team, who will evaluated the patient for admission. Triage Nursing notes reviewed and agree them. Prior medical records reviewed Vital Signs: reviewed and remarkable for no significant abnormalities Differential diagnosis: Appendicitis, ovarian cyst, ovarian torsion, ectopic , TOA, PID, infections, diverticulitis, UTI, obstruction, mesenteric ischemia, aortic pathology, inflammatory bowel disease, renal colic, PUD, pancreatitis, biliary pathology, hernia, volvulus, constipation, as well as other pathologies. ER treatment provided: See below. Diagnostics interpreted by me: Cardiac Monitoring: An order for continuous cardiac monitoring was placed and demonstrated NSR, 84 bpm, no ectopy. Laboratory studies: See below Imaging studies: CT OF THE ABDOMEN AND PELVIS WITH CONTRAST CLINICAL HISTORY: Upper and left sided abd pain, n/v COMPARISON STUDY: CT of the abdomen March 12, 2012.] Cord ultrasound May 30, 2014. TECHNIQUE: Following IV administration of 94 mL of Optiray-320, axial images of the abdomen and pelvis were obtained from the lung bases to the proximal femurs. Images were reviewed in the axial, sagittal, and coronal planes. IV contrast was administered without complication. Automated exposure control was utilized for the study. A dose lowering technique was utilized adhering to the principles of ALARA. CT DOSE: 1101.92 mGy.cm FINDINGS: Lung bases are unremarkable. No pneumatosis, free air or portal venous gas is present. Hepatic steatosis is noted. There is mild hepatosplenomegaly. The adrenal glands and kidneys are unremarkable. There is mild to moderate stranding with a small amount of fluid centered on the pancreatic body and pa ncreatic tail. No peripancreatic fluid collection is noted. No biliary or pancreatic ductal dilatation is noted. Splenic vein is patent. There is a splenule. There is no evidence for a bowel obstruction. There is no evidence for acute appendicitis. Hyperdensities along the cecum favor diverticula. Major vasculature is patent. There is no hydronephrosis. No hepatic lesions are present. IMPRESSION: Mild to moderate stranding and fluid centered on the pancreatic tail consistent with acute pancreatitis. No peripancreatic fluid collection. Consultation(s): Case discussed with [facility] admitting team, who will evaluated the patient for admission. HPI: The patient is a pleasant 54-year-old woman with a past medical history of type 2 diabetes on insulin, GERD, asthma, hyperlipidemia, hypertension, gastroparesis who presents emergency department with upper and left-sided abdominal pain with associated nausea and vomiting that evolved over the past 4 days without improvement of her Bentyl. She denies any diarrhea. She denies any cough, congestion, fevers, chills, chest pain, shortness of breath. Denies any known COVID-19 exposures. ROS: See above HPI for pertinent positives & negatives. A total of 10 systems reviewed and were otherwise negative. PAST MEDICAL HISTORY:See Below PAST SURGICAL HISTORY:See Below FAMILY HISTORY:See Below SOCIAL HISTORY:See Below HOME MEDICATIONS:See Below ALLERGIES:See Below VITALS:See Below PHYSICAL EXAMINATION: GENERAL: Awake, alert, uncomfortable-appearing, in no distress HENT: Normocephalic, atraumatic. Oropharynx with dry mucous membranes and otherwise unremarkable. EYES: Normal conjunctiva. Sclera non-icteric. NECK: Supple. No nuchal rigidity. FROM. No JVD. RESPIRATORY: Clear to auscultation. CARDIAC: Regular rate, normal rhythm. Extremities warm and well perfused. Pulses equal. ABDOMEN: Soft, non-distended. Epigastric and LUQ/LLQ discomfort without discrete tenderness to palpation. No rebound or guarding. No masses. RECTAL: Deferred. MUSCULOSKELETAL: Chest examination reveals no tenderness. The back is symmetrical on inspection without obvious abnormality. There is no CVA tenderness to palpation. No joint edema. LOWER EXTREMITIES: Calves are equal size bilaterally and non-tender. No edema. No discoloration. NEURO: Normal sensorium. No sensory or motor deficits noted. SKIN: No rash or jaundice noted. Sabino Staples MD Past Med/Surg History Medical History Asthma Closed fracture of lateral portion of left tibial plateau Eustachian tube dysfunction GERD (gastroesophageal reflux disease) Hyperlipidemia Hypertension Mixed conductive and sensorineural hearing loss of left ear with restricted hearing of right ear Sensorineural hearing loss of both ears Type 2 diabetes mellitus with insulin therapy Surgical History History of ear surgery Left-2015 History of elbow surgery Left History of surgery cyst removal Family History Mother Asthma Grandfather Hypertension Heart disease Grandmother Hypertension Stroke Father Heart disease Cancer Aunt Cancer Other Environmental allergies Hearing loss No family history of bleeding disorder Social History Smoking Status: Never smoker Second Hand Exposure: No; Hx Alcohol Use: No Hx Substance Use: No Preferred Language: Cook Islander Communication Ability: Effective Time Broker Required: No Beliefs That Will Affect Care: None marital status: Current Living Situation: Spouse and Family current occupational status: employed 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 Other Information That Helps Us Care for You: No Feels Safe at Home: Yes Safety Concerns: Feels Safe At This Time Assistive Devices: None Assistive Devices Comment: CPAP at night: Hearing Aids at home Allergies Allergies Allergy/AdvReac Type Severity Reaction Status Date / Time morphine Allergy Unknown VOMITING, Verified 03/16/20 07:33 NAUSEA pseudoephedrine Allergy Unknown ` Verified 03/16/20 07:33 Sulfa (Sulfonamide Allergy Unknown Unknown Verified 03/16/20 07:33 Antibiotics) adhesive tape Allergy Unknown Verified 03/16/20 07:33 simvastatin AdvReac Intermediate MUSCLE PAIN Verified 03/16/20 07:33 Home Meds Home Medications Medication Instructions Recorded Confirmed albuterol sulfate 90 mcg/actuation 2 puffs INH Q6H PRN 10/24/18 03/16/20 aerosol inhaler cetirizine 10 mg tablet 10 mg PO HS tab 10/24/18 03/16/20 clobetasol 0.05 % topical cream 1 appln TOPICAL BID PRN gm 10/24/18 03/16/20 dicyclomine 20 mg tablet 20 mg PO Q6H PRN tab 10/24/18 03/16/20 magnesium oxide 400 mg (241.3 mg 400 mg PO BID tab 10/24/18 03/16/20 magnesium) tablet montelukast 10 mg tablet 10 mg PO HS tab 10/24/18 03/16/20 omeprazole 20 mg tablet,delayed 20 mg PO BID tab 10/24/18 03/16/20 release rosuvastatin 40 mg tablet 40 mg PO HS #90 tab 10/24/18 03/16/20 triamcinolone acetonide 0.5 % 1 appln TOPICAL 2XWK PRN gm 10/24/18 03/16/20 topical cream valacyclovir 1 gram tablet 1,000 mg PO DAILY PRN tab 10/24/18 03/16/20 lancets #50 ea 10/28/18 11/11/19 cholecalciferol (vitamin D3) 1,000 unit PO QAM 01/03/19 03/16/20 [Vitamin D3] citalopram 40 mg tablet 60 mg PO HS tab 02/27/19 03/16/20 acetone (urine) test #25 ea 03/21/19 11/11/19 cyanocobalamin (vitamin B-12) 0 mcg PO QAM cap 03/21/19 03/16/20 1,000 mcg capsule fluticasone 500 mcg-salmeterol 50 1 inh INHALATION QAM ea 03/21/19 03/16/20 mcg/dose blistr powdr for inhalation carica papaya [Papaya Enzyme] 4 tab PO PC PRN 03/16/20 03/16/20 melatonin 5 mg PO HS 03/16/20 03/16/20 Previous Rx's Medication Instructions Recorded Novolin R Regular U-100 Insuln 100 65 units SQ .COMPLEX 90 Days #6 03/21/19 unit/mL injection solution vial NS Victoza 3-Mitchell 0.6 mg/0.1 mL (18 See Rx Instructions SQ .COMPLEX #9 05/15/19 mg/3 mL) subcutaneous pen injector ml NS pen needle, diabetic 32 gauge x #100 ea 05/19/19" blood sugar diagnostic #400 ea 06/26/19 Results & Data (ED) Vital Signs Vital Signs - 24 hr 03/16/20 06:43 03/16/20 08:39 03/16/20 08:51 Temperature 36.2 C L Temperature Source Temporal Artery Scan Pulse Rate 90 Pulse Rate [Apical] 80 Respiratory Rate 18 18 Respiratory Depth Normal Blood Pressure 123/77 Blood Pressure [Left Arm] 118/68 Blood Pressure Mean 92 Blood Pressure Mean [Left Arm] 84 Pulse Oximetry 93 97 94 Oxygen Delivery Method Room Air Room Air Room Air Sepsis Recent Fever Within 48 Hours No Sepsis New/Unexplained Change in Mental Status N/A Sepsis Action Taken by Nursing No Action Required 03/16/20 10:00 Temperature Temperature Source Pulse Rate Pulse Rate [Apical] 82 Respiratory Rate 18 Respiratory Depth Blood Pressure Blood Pressure [Left Arm] 147/87 H Blood Pressure Mean Blood Pressure Mean [Left Arm] 107 Pulse Oximetry 94 Oxygen Delivery Method Room Air Sepsis Recent Fever Within 48 Hours Sepsis New/Unexplained Change in Mental Status Sepsis Action Taken by Nursing Laboratory Data Result diagrams: 03/16/20 Unknown 03/16/20 Unknown Lab Results 03/16/20 Range/Units Unknown WBC 12.79 H (4.8-10.8) K/uL RBC 5.01 (4.2-5.4) M/uL Hgb 14.1 (12.0-16.0) g/dL Hct 40.4 (37-47) % MCV 80.6 (80-100) fL MCH 28.1 (25-34) pg MCHC 34.9 (32-36) g/dL RDW Std Deviation 38.9 (36.4-46.3) fL RDW Coeff of Samantha 13.3 (11.5-14.5) % Plt Count 243 (130-400) K/uL MPV 9.2 (7.4-10.4) fL Immature Gran % (Auto) 0.2 % Neut % (Auto) 85.6 % Lymph % (Auto) 7.1 % [place] % (Auto) 6.0 % Eos % (Auto) 0.9 % Baso % (Auto) 0.2 % Neut # (Auto) 10.95 H (1.4-6.5) K/uL Lymph # (Auto) 0.91 L (1.2-3.4) K/uL [place] # (Auto) 0.77 H (0.11-0.59) K/uL Eos # (Auto) 0.12 (0-0.5) K/uL Baso # (Auto) 0.02 (0-0.2) K/uL Immature Gran # (Auto) 0.02 (0.00-0.02) K/uL Administered Medications Acetaminophen (Acetaminophen 325 Mg Tab) 650 mg PO Q6H PRN PRN Reason: Pain or Fever Stop: 04/15/20 14:00 Last Admin: 03/16/20 18:30 Dose: 650 mg Documented by: [id number] Cetirizine HCl (Cetirizine Hcl 10 Mg Tablet) 10 mg PO HS [facility] Stop: 04/15/20 20:59 Last Admin: 03/16/20 20:42 Dose: 10 mg Documented by: [id number] Citalopram Hydrobromide (Citalopram 20 Mg Tab) 60 mg PO [facility] Stop: 04/15/20 20:59 Last Admin: 03/16/20 20:42 Dose: 60 mg Documented by: [id number] Enoxaparin Sodium (Enoxaparin Inj 40 Mg/0.4 Ml Syr) 40 mg SQ Q12H [facility] Stop: 04/15/20 17:59 Last Admin: 03/16/20 17:46 Dose: 40 mg Documented by: [id number] Potassium Chloride 10 meq/ (Sodium Chloride) 1,005 mls @ 125 mls/hr IV .Q8H3M [facility] Stop: 04/15/20 14:44 Last Admin: 03/16/20 14:45 Dose: 125 mls/hr Documented by: [id number] Ketorolac Tromethamine (Ketorolac 30 Mg/Ml Vial) 30 mg IV Q6H PRN PRN Reason: Pain Stop: 03/21/20 14:30 Last Admin: 03/16/20 20:48 Dose: 30 mg Documented by: [id number] Admin: 03/16/20 14:51 Dose: 30 mg Documented by: [id number] Magnesium Chloride (Magnesium Chloride 64mg Delayed Rel Tab) 64 mg PO BID [facility] Stop: 04/15/20 20:59 Last Admin: 03/16/20 20:43 Dose: 64 mg Documented by: [id number] Melatonin (Melatonin 3 Mg Tab) 6 mg PO HS [facility] Stop: 04/15/20 20:59 Last Admin: 03/16/20 20:47 Dose: 6 mg Documented by: [id number] Montelukast Sodium (Montelukast Sodium 10 Mg Tablet) 10 mg PO [facility] Stop: 04/15/20 20:59 Last Admin: 03/16/20 20:43 Dose: 10 mg Documented by: [id number] Pantoprazole Sodium (Pantoprazole 40 Mg Tab) 40 mg PO BID [facility]ICA Stop: 04/15/20 20:59 Last Admin: 03/16/20 20:43 Dose: 40 mg Documented by: [id number] Rosuvastatin Calcium (Rosuvastatin Calcium 20 Mg Tab) 40 mg PO HS [facility] Stop: 04/15/20 20:59 Last Admin: 03/16/20 20:42 Dose: 40 mg Documented by: [id number] Discontinued Medications Diphenhydramine HCl (Diphenhydramine 50 Mg/Ml Vial) 25 mg IV NOW STA Stop: 03/16/20 07:07 Last Admin: 03/16/20 07:20 Dose: 25 mg Documented by: [id number] Fentanyl Citrate (Fentanyl Citrate 100 Mcg/2 Ml Vial) 50 mcg IV NOW STA Stop: 03/16/20 09:51 Last Admin: 03/16/20 09:57 Dose: 50 mcg Documented by: [id number] Fentanyl Citrate (Fentanyl Citrate 100 Mcg/2 Ml Vial) 50 mcg IV Q2H PRN PRN Reason: Pain Stop: 03/30/20 11:32 Last Admin: 03/16/20 11:41 Dose: 50 mcg Documented by: [id number] Sodium Chloride (Nss 1000ml) 1,000 mls @ 999 mls/hr IV .Q1H1M ONE Stop: 03/16/20 08:03 Last Infusion: 03/16/20 08:38 Dose: 0 mls/hr Documented by: [id number] Admin: 03/16/20 07:20 Dose: 999 mls/hr Documented by: [id number] Acetaminophen (Ofirmev) 1,000 mg in 100 mls @ 400 mls/hr IV NOW STA Stop: 03/16/20 07:17 Last Infusion: 03/16/20 08:09 Dose: 0 mls/hr Documented by: [id number] Admin: 03/16/20 07:20 Dose: 400 mls/hr Documented by: [id number] Famotidine (Pepcid 20mg Iv Push) 20 mg in 5 mls @ 2.5 mls/min IV NOW STA Stop: 03/16/20 07:07 Last Admin: 03/16/20 07:21 Dose: 2.5 mls/min Documented by: [id number] Insulin Human Regular (Insulin Regular Pump) 1 ea N/A ACHS VERONICA Stop: 04/15/20 16:29 Last Admin: 03/16/20 18:55 Dose: 1 ea Documented by: [id number] Cosigned by: [id number] Ioversol (Ioversol 100ml) 94 ml IV ONCE ONE Stop: 03/16/20 07:54 Last Admin: 03/16/20 07:53 Dose: 94 ml Documented by: [id number] Metoclopramide HCl (Metoclopramide Hcl Inj 5 Mg/Ml 2 Ml Vial) 10 mg IV Q6H PRN PRN Reason: Nausea Stop: 04/15/20 07:02 Last Admin: 03/16/20 13:23 Dose: 10 mg Documented by: [id number] Admin: 03/16/20 07:20 Dose: 10 mg Documented by: [id number] Discharge Plan Visit Data Chief Complaint: Abdominal Pain Stated Complaint: LEFT SIDED ABDOMINAL PAIN,VOMITING ED Provider: Sabino Staples Discharge Problem: Pancreatitis, Acute epigastric pain, Nausea & vomiting Patient Disposition: Admitted As Inpatient Discharge Instructions Interventions: ED Discharge Assessment Last Done: 03/16/20 13:13 Discharge Problem: Pancreatitis Qualifiers: Chronicity: acute Pancreatitis type: other Acute pancreatitis complication: unspecified Qualified Code(s): K85.80 - Other acute pancreatitis without necrosis or infection Nausea & vomiting Qualifiers: Vomiting type: unspecified Vomiting Intractability: unspecified Qualified Code(s): R11.2 - Nausea with vomiting, unspecified
[2020-03-16] MEDS ORDERED: ACETAMINOPHEN 1,000 MG/100 ML VIAL IV STA (07:03)
[2020-03-16] MEDS ORDERED: SODIUM CHLORIDE 0.9% 1000ML 1,000 ML IV ONE (07:03)
[2020-03-16] MEDS ORDERED: FAMOTIDINE 20MG IV PUSH 20 MG/5 ML SYR IV STA (07:06)
[2020-03-16] MEDS ORDERED: diphenhydrAMINE 50 MG/ML VIAL IV STA (07:06)
[2020-03-16 07:16] LABS: Basophils # (auto) 0.02 K/uL (0-0.2); Basophils % (auto) 0.2 %; Eosinophils # (auto) 0.12 K/uL (0-0.5); Eosinophils % (auto) 0.9 %; Hematocrit (blood only) 40.4 % (37-47); Hemoglobin 14.1 g/dL (12.0-16.0); Immature Granulocytes # (auto) 0.02 K/uL (0.00-0.02); Immature Granulocytes % (auto) 0.2 %; Lymphocytes # (auto) 0.91 K/uL (1.2-3.4); Lymphocytes % (auto) 7.1 %; Mean Corpuscular Hemoglobin 28.1 pg (25-34); Mean Corpuscular Hgb Conc 34.9 g/dL (32-36); Mean Corpuscular Volume 80.6 fL (80-100); Mean Platelet Volume 9.2 fL (7.4-10.4); Monocytes # (auto) 0.77 K/uL (0.11-0.59); Neutrophils # (auto) 10.95 K/uL (1.4-6.5); Neutrophils % (auto) 85.6 %; Platelet Count 243 K/uL (130-400); RDW Coefficient of Variation 13.3 % (11.5-14.5); RDW Standard Deviation 38.9 fL (36.4-46.3); Red Blood Count 5.01 M/uL (4.2-5.4); White Blood Count 12.79 K/uL (4.8-10.8)
[2020-03-16] MEDS: METOCLOPRAMIDE HCL INJ 5 MG/ML 2 ML VIAL IV PRN ×2 (07:20→13:23)
[2020-03-16 07:32] LABS: Albumin Level 3.7 gm/dl (3.4-5.0); BUN Creatinine Ratio 7.9 (10-20); Calcium 9.7 mg/dl (8.5-10.1); Creatinine Clr Calc Pharmacy 70.6 ml/min; Est GFR (African American) 76.7; Est GFR (Non-African American) 66.2
[2020-03-16 07:35] LABS: Albumin Globulin Ratio 0.8 (0.9-2); Bilirubin Direct 0.2 mg/dl (0-0.2); Globulin 4.4 gm/dl (2.5-4.0); Phosphorus 2.8 mg/dl (2.5-4.9); Total Protein 8.1 gm/dl (6.4-8.2)
[2020-03-16] MEDS ORDERED: IOVERSOL 100ml IV ONE (07:53)
--- NOTE | 2020-03-16 08:11 | CT Scan Report ---
CT OF THE ABDOMEN AND PELVIS WITH CONTRAST CLINICAL HISTORY: Upper and left sided abd pain, n/v COMPARISON STUDY: CT of the abdomen March 12, 2012.] Cord ultrasound May 30, 2014. TECHNIQUE: Following IV administration of 94 mL of Optiray-320, axial images of the abdomen and pelvi s were obtained from the lung bases to the proximal femurs. Images were reviewed in the axial, sagitt al, and coronal planes. IV contrast was administered without complication. Automated exposure contro l was utilized for the study. A dose lowering technique was utilized adhering to the principles of A JORI. CT DOSE: 1101.92 mGy.cm FINDINGS: Lung bases are unremarkable. No pneumatosis, free air or portal venous gas is present. Hepa tic steatosis is noted. There is mild hepatosplenomegaly. The adrenal glands and kidneys are unremark able. There is mild to moderate stranding with a small amount of fluid centered on the pancreatic bod y and pancreatic tail. No peripancreatic fluid collection is noted. No biliary or pancreatic ductal d ilatation is noted. Splenic vein is patent. There is a splenule. There is no evidence for a bowel obs truction. There is no evidence for acute appendicitis. Hyperdensities along the cecum favor diverticu la. Major vasculature is patent. There is no hydronephrosis. No hepatic lesions are present. IMPRESSION: Mild to moderate stranding and fluid centered on the pancreatic tail consistent with acut e pancreatitis. No peripancreatic fluid collection. ACT 112: Negative or not required by law. Electronically signed by: Magdi Redding M.D. 03/16/2020 8:10 AM
[2020-03-16] MEDS ORDERED: fentaNYL citrate 100 MCG/2 ML VIAL IV STA (09:50)
--- NOTE | 2020-03-16 11:05 | History & Physical Report ---
Date of Service March 16, 2020 Assessment & Plan (1) Epigastric abdominal pain: Mrs. Saldana is a 54 year old female with a history Type 2 Diabetes Mellitus (on Omnipod insulin pump), Hypertension, Dyslipidemia, GERD, Schatzki's Ring, Irritable Bowel Syndrome, and Asthma who presents to [facility] ER today with what appears to be an Acute Pancreatitis. She complains of midepigastric and left upper quadrant pain x 4 days with associated nausea, decreased appetite, and 1 episode of vomiting earlier today. She describes the midepigastric and LUQ pain as a pressure and a burning sensation. The pain is worsened by being upright, and it's worse after eating. No fever or chills. She does not appear to be dehydrated. CT Scan of the Abdomen showed mild to moderate stranding and fluid centered on the pancreatic tail consistent with acute pancreatitis, no evidence of biliary or pancreatic duct obstruction or dilation. Lipase level is 339 U/L. LFT's are unremarkable. WBC# is elevated. Recommend the following: -- Admit to Med-Surg. -- Bowel Rest, NPO. -- IV NSS with 10 MEq KCl at 125 ml/hour. -- Fentanyl IV 50 mcg q 2 hours as needed. -- Acetaminophen as needed. -- Monitor daily CBC with Diff, CMP. -- Check FLP in the morning. -- Consult GI. -- Convert Mag-Ox to Magnesium Chloride. (2) Pancreatitis: -- As outlined above. (3) Type 2 diabetes mellitus with insulin therapy: -- Stop Victoza for now, as pancreatitis and GI symptoms are known side effects of this medication. -- Patient may manage Omnipod Insulin Pump, monitor BSG's. -- Basal Rate at 0:00 1.4, at 0800 1.15, and at 1730 1.45. -- Bolus Insulin to carb ratio 8, correction factor 22. -- Patient typically takes a total daily dose 53 units. (4) Hyperlipidemia: -- Check fasting lipid panel in the morning. -- Continue Rosuvastatin 40 mg daily. (5) GERD (gastroesophageal reflux disease): -- Continue Omeprazole 20 mg b.i.d.. History of Present Illness Chief Complaint: -- Abdominal Pain. -- ? Pancreatitis on CT imaging. Primary Care Provider: Trung Mayberry MD Mrs. Saldana is a 54 year old female with a history Type 2 Diabetes Mellitus (on Omnipod insulin pump), Hypertension, Dyslipidemia, GERD, Schatzki's Ring, Irritable Bowel Syndrome, and Asthma who presents to [facility] ER today complaining midepigastric and left upper quadrant pain x 4 days with associated nausea, decreased appetite, and 1 episode of vomiting earlier today. She describes the midepigastric and LUQ pain as a pressure and a burning sensation. The pain is worsened by being upright, and it's worse after eating. Patient denies any fevers, chills, diarrhea, or change in bowel habits recently. She denies any melena, hematochezia, or hematemesis. She denies any abdominal cramping. She denies any urinary symptoms -- specifically denies any urinary urgency, frequency, or dysuria. She denies any flank pain. Patient rarely drinks alcoholic beverages and has not had any recent alcohol intake. Her most recent lipid panel 11/11/19 showed triglycerides of 147 mg/dL. She denies any history of PUD or prior GI bleeding. Allergies Allergy/AdvReac Type Severity Reaction Status Date / Time morphine Allergy Unknown VOMITING, Verified 03/16/20 07:33 NAUSEA pseudoephedrine Allergy Unknown ` Verified 03/16/20 07:33 Sulfa (Sulfonamide Allergy Unknown Unknown Verified 03/16/20 07:33 Antibiotics) adhesive tape Allergy Unknown Verified 03/16/20 07:33 simvastatin AdvReac Intermediate MUSCLE PAIN Verified 03/16/20 07:33 Home Medications Medication Instructions Recorded Confirmed Type albuterol sulfate 90 mcg/actuation 2 puffs INH Q6H PRN 10/24/18 03/16/20 History aerosol inhaler cetirizine 10 mg tablet 10 mg PO HS tab 10/24/18 03/16/20 History clobetasol 0.05 % topical cream 1 appln TOPICAL BID PRN gm 10/24/18 03/16/20 History dicyclomine 20 mg tablet 20 mg PO Q6H PRN tab 10/24/18 03/16/20 History magnesium oxide 400 mg (241.3 mg 400 mg PO BID tab 10/24/18 03/16/20 History magnesium) tablet montelukast 10 mg tablet 10 mg PO HS tab 10/24/18 03/16/20 History omeprazole 20 mg tablet,delayed 20 mg PO BID tab 10/24/18 03/16/20 History release rosuvastatin 40 mg tablet 40 mg PO HS #90 tab 10/24/18 03/16/20 History triamcinolone acetonide 0.5 % 1 appln TOPICAL 2XWK PRN gm 10/24/18 03/16/20 History topical cream valacyclovir 1 gram tablet 1,000 mg PO DAILY PRN tab 10/24/18 03/16/20 History lancets #50 ea 10/28/18 11/11/19 History cholecalciferol (vitamin D3) 1,000 unit PO QAM 01/03/19 03/16/20 History [Vitamin D3] citalopram 40 mg tablet 60 mg PO HS tab 02/27/19 03/16/20 History Novolin R Regular U-100 Insuln 100 65 units SQ .COMPLEX 90 Days #6 03/21/19 03/16/20 Rx unit/mL injection solution vial NS acetone (urine) test #25 ea 03/21/19 11/11/19 History cyanocobalamin (vitamin B-12) 0 mcg PO QAM cap 03/21/19 03/16/20 History 1,000 mcg capsule fluticasone 500 mcg-salmeterol 50 1 inh INHALATION QAM ea 03/21/19 03/16/20 History mcg/dose blistr powdr for inhalation Victoza 3-Mitchell 0.6 mg/0.1 mL (18 See Rx Instructions SQ .COMPLEX #9 05/15/19 03/16/20 Rx mg/3 mL) subcutaneous pen injector ml NS pen needle, diabetic 32 gauge x #100 ea 05/19/19 11/11/19 Rx 5/32" blood sugar diagnostic #400 ea 06/26/19 11/11/19 Rx carica papaya [Papaya Enzyme] 4 tab PO PC PRN 03/16/20 03/16/20 History melatonin 5 mg PO HS 03/16/20 03/16/20 History Past Med/Surg History Medical History Asthma Closed fracture of lateral portion of left tibial plateau Eustachian tube dysfunction GERD (gastroesophageal reflux disease) Hyperlipidemia Hypertension Mixed conductive and sensorineural hearing loss of left ear with restricted hearing of right ear Sensorineural hearing loss of both ears Type 2 diabetes mellitus with insulin therapy Surgical History History of ear surgery Left-2015 History of elbow surgery Left History of surgery cyst removal Family History Mother Asthma Grandfather Hypertension Heart disease Grandmother Hypertension Stroke Father Heart disease Cancer Aunt Cancer Other Environmental allergies Hearing loss No family history of bleeding disorder Social History Smoking Status: Never smoker Second Hand Exposure: No; Hx Alcohol Use: No Hx Substance Use: No Preferred Language: Azeri Communication Ability: Effective Door Technician Required: No Beliefs That Will Affect Care: None marital status: Current Living Situation: Spouse and Family current occupational status: employed 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 HEENT: Head is atraumatic, normocephalic. Sclerae anicteric. EOM's intact. Facies symmetric. No perioral cyanosis. NECK: No JVD. JVP is at the level of the clavicle sitting upright. Carotid upstrokes are + 2 bilaterally. CHEST/LUNGS: Clear to auscultation throughout all lung collins. No wheezes, rales, or crackles. CVS: S1 and S2 are regular without obvious murmurs, gallops, or rubs. PMI is nonpalpable. No lifts, heaves, or thrills. No abdominal aortic or renal bruits. ABDOMINAL EXAM: Bowel sounds are present. No masses or organomegaly. Tender to deep palpation in the midepigastrium and LUQ, + rebound tenderness. EXTREMITIES: No clubbing or cyanosis. No edema. Intact posterior tibial and radial pulses bilaterally. NEUROLOGIC EXAM: Patient is awake, alert, and oriented. Pleasant and cooperative. Answers questions appropriately. Speech is clear. Normal movement in all 4 extremities. Foam Machine Operator: -- NSR at normal rates. Constitutional: WD/WN, vitals as above Eyes: normal visual collins by confrontation and + anicteric sclerae Neck: normal visual inspection and trachea midline Respiratory: normal respiratory effort, lungs clear to auscultation Cardiovascular: Rate/Rhythm: regular rate and regular rhythm Gastrointestinal (Abdomen): Inspection/Auscultation: abdomen not distended Percussion/Palpation: + abdomen tender (epigastric, LUQ) and abdomen soft Musculoskeletal: Head/Neck/Chest: normocephalic and head atraumatic Neg for peripheral LE edema, + pedal pulses Skin: no rashes, warm and dry Neurologic: awake; not confused Speech / Cognition: normal speech Psychiatric: A+Ox3, euthymic affect Lymphatic: Exam as done by Jocelyne Eid DO Results & Data Results & Data ([facility]) Vital Signs (Past 12 Hours) Vital Signs Temp Pulse Pulse Resp BP BP Pulse Ox 03/16/20 10:00 82 18 147/87 H 94 03/16/20 08:51 94 03/16/20 08:39 80 18 118/68 97 03/16/20 06:43 36.2 C L 90 18 123/77 93 Laboratory Results Laboratory Results - last 24 hr 03/16/20 03/16/20 Unknown Unknown WBC 12.79 H RBC 5.01 Hgb 14.1 Hct 40.4 MCV 80.6 MCH 28.1 MCHC 34.9 RDW Std Deviation 38.9 RDW Coeff of Samantha 13.3 Plt Count 243 MPV 9.2 Immature Gran % (Auto) 0.2 Neut % (Auto) 85.6 Lymph % (Auto) 7.1 [place] % (Auto) 6.0 Eos % (Auto) 0.9 Baso % (Auto) 0.2 Neut # (Auto) 10.95 H Lymph # (Auto) 0.91 L [place] # (Auto) 0.77 H Eos # (Auto) 0.12 Baso # (Auto) 0.02 Immature Gran # (Auto) 0.02 Sodium 135 L Potassium 4.0 Chloride 103 Carbon Dioxide 25 Anion Gap 7.0 BUN 8 Creatinine 0.97 Est Cr Clr Drug Dosing 70.6 Est GFR ( Amer) 76.7 Est GFR (Non-Af Amer) 66.2 BUN/Creatinine Ratio 7.9 L Glucose 258 H Calcium 9.7 Phosphorus 2.8 Magnesium 2.0 Total Bilirubin 1.0 Direct Bilirubin 0.2 AST 12 L ALT 23 Alkaline Phosphatase 89 Total Protein 8.1 Albumin 3.7 Globulin 4.4 H Albumin/Globulin Ratio 0.8 L Lipase [address] Scan 03/16/2020: FINDINGS: Lung bases are unremarkable. No pneumatosis, free air or portal venous gas is present. Hepatic steatosis is noted. There is mild hepatosplenomegaly. The adrenal glands and kidneys are unremarkable. There is mild to moderate stranding with a small amount of fluid centered on the pancreatic body and pancreatic tail. No peripancreatic fluid collection is noted. No biliary or pancreatic ductal dilatation is noted. Splenic vein is patent. There is a splenule. There is no evidence for a bowel obstruction. There is no evidence for acute appendicitis. Hyperdensities along the cecum favor diverticula. Major vasculature is patent. There is no hydronephrosis. No hepatic lesions are present. IMPRESSION: Mild to moderate stranding and fluid centered on the pancreatic tail consistent with acute pancreatitis. No peripancreatic fluid collection. Medications Administered Metoclopramide HCl (Metoclopramide Hcl Inj 5 Mg/Ml 2 Ml Vial) 10 mg IV Q6H PRN PRN Reason: Nausea Stop: 04/15/20 07:02 Last Admin: 03/16/20 07:20 Dose: 10 mg Documented by: [id number] Discontinued Medications Diphenhydramine HCl (Diphenhydramine 50 Mg/Ml Vial) 25 mg IV NOW STA Stop: 03/16/20 07:07 Last Admin: 03/16/20 07:20 Dose: 25 mg Documented by: [id number] Fentanyl Citrate (Fentanyl Citrate 100 Mcg/2 Ml Vial) 50 mcg IV NOW STA Stop: 03/16/20 09:51 Last Admin: 03/16/20 09:57 Dose: 50 mcg Documented by: [id number] Sodium Chloride (Nss 1000ml) 1,000 mls @ 999 mls/hr IV .Q1H1M ONE Stop: 03/16/20 08:03 Last Infusion: 03/16/20 08:38 Dose: 0 mls/hr Documented by: [id number] Admin: 03/16/20 07:20 Dose: 999 mls/hr Documented by: [id number] Acetaminophen (Ofirmev) 1,000 mg in 100 mls @ 400 mls/hr IV NOW STA Stop: 03/16/20 07:17 Last Infusion: 03/16/20 08:09 Dose: 0 mls/hr Documented by: [id number] Admin: 03/16/20 07:20 Dose: 400 mls/hr Documented by: [id number] Famotidine (Pepcid 20mg Iv Push) 20 mg in 5 mls @ 2.5 mls/min IV NOW STA Stop: 03/16/20 07:07 Last Admin: 03/16/20 07:21 Dose: 2.5 mls/min Documented by: [id number] Ioversol (Ioversol 100ml) 94 ml IV ONCE ONE Stop: 03/16/20 07:54 Last Admin: 03/16/20 07:53 Dose: 94 ml Documented by: [id number] Code Status & VTE Plan Code Status Full Code VTE Prophylaxis Plan VTE Prophylaxis will be ordered: Yes Supervising Physician Co-Signing Physician Notes Pt seen and examined by me. Pt has been having worsening abd pain over the last 4 days. She tried Bentyl, but this did not help. No hx of similar sx. Denies chest pain or SOB. Tolerating PO without issue until this AM when she had onset of n/v. She has been able to eat yesterday. She was feeling improved in the ED s/p fentanyl initially, however this is wearing off and she does have some return of pain. She also had another episode of n/v here. Agree with HPI/ROS as noted by PA See above for my exam in PE section Agree with plan as outlined above Acute pancreatitis per CTAP, lipase WNL Pt started on Victoza about 6 months ago, possibly the cause of pancreatitis RUQ US pending, lipid panel pending Pt with morphine allergy, will try tylenol to avoid morphine/dilaudid, or ongoing fentanyl use Pt uses CPAP at home, requests during admission COVID testing done for admission only, no contacts PG Care Time/CCT Total # of Minutes Spent Total Time Spent with Patient: Total time spent is greater than 50% in coordination of care (as documented) at patient's floor/unit and/or counseling patient:45 Coding Level of Care Code 66617 Initial Inpt Care Lvl 3 Diagnoses Epigastric abdominal pain R10.13 Pancreatitis K85.90 Type 2 diabetes mellitus with insulin therapy E11.9; Z79.4 Hyperlipidemia E78.5 GERD (gastroesophageal reflux disease) K21.9 Time Spent (min) 65
[2020-03-16] MEDS ORDERED: fentaNYL citrate 100 MCG/2 ML VIAL IV PRN (11:33)
[2020-03-16 12:47] LABS: CoV2 Total Antibody Negative (Negative)
[2020-03-16] MEDS ORDERED: ONDANSETRON INJ 2 MG/ML 2 ML VIAL IV PRN (14:01)
[2020-03-16] MEDS ORDERED: DICYCLOMINE HCL 20 MG TAB PO PRN (14:01)
[2020-03-16] MEDS ORDERED: TRIAMCINOLONE ACET 0.5% CR 15 GM TUBE TOP PRN (14:01)
[2020-03-16] MEDS ORDERED: [UNRECOGNIZED DRUG - OTHER] PO PRN (14:01)
[2020-03-16] MEDS ORDERED: ALBUTEROL HFA 8 GM INHALER INH PRN (14:14)
[2020-03-16] MEDS: POTASSIUM CHLORIDE 10 MEQ in SODIUM CHLORIDE 0.9% 1000ML 1,000 ML IV SCH ×2 (14:45→22:39)
[2020-03-16] MEDS: KETOROLAC 30 MG/ML VIAL IV PRN ×2 (14:51→20:48)
[2020-03-16] MEDS ORDERED: INSULIN REGULAR PUMP SCH (16:30)
[2020-03-16] MEDS ORDERED: Nursing to Pharmacy Communication SCH ×2 (17:15→20:45)
[2020-03-16] MEDS: ENOXAPARIN INJ 40 MG/0.4 ML SYR SQ SCH (17:46)
[2020-03-16] MEDS: ACETAMINOPHEN 325 MG TAB PO PRN (18:30)
--- NOTE | 2020-03-16 18:35 | Ultrasound Report ---
US liver HISTORY: 54 years-old Female pancreatitis acute epigastric abdominal pain with acute pancreatitis COMPARISON: CT abdomen and pelvis of same day TECHNIQUE: Multiple real-time sonographic images of the abdominal right upper quadrant were obtained assessing grayscale appearance and color flow FINDINGS: Pancreas is mostly obscured by bowel gas. The pancreatic head appears unremarkable. Increased echogen icity of the liver with poor through transmission. No hepatic mass identified. Fatty sparing within t he aman hepatis. Hepatopedal flow noted within the main portal vein. Trace gallbladder sludge without shadowing cholelithiasis, wall thickening or pericholecystic fluid. Normal common bile duct, 4 mm. The imaged right kidney is unremarkable without hydronephrosis. IMPRESSION: 1. No cholelithiasis or sonographic evidence of acute cholecystitis. 2. No biliary ductal dilation. 3. Hepatic steatosis. ACT 112: Negative or not required by law. The above report was generated using voice recognition software. It may contain grammatical, syntax o r spelling errors. Electronically signed by: Iain Dubose M.D. 03/16/2020 6:34 PM
[2020-03-16] MEDS: CITALOPRAM 20 MG TAB PO SCH (20:42)
[2020-03-16] MEDS: CETIRIZINE HCL 10 MG TABLET PO SCH (20:42)
[2020-03-16] MEDS: MAGNESIUM CHLORIDE 64MG DELAYED REL TAB PO SCH (20:43)
[2020-03-16] MEDS: PANTOprazole 40 MG TAB PO SCH (20:43)
[2020-03-16] MEDS: MONTELUKAST SODIUM 10 MG TABLET PO SCH (20:43)
[2020-03-16] MEDS: MELATONIN 3 MG TAB PO SCH (20:47)
[2020-03-16] MEDS ORDERED: ROSUVASTATIN CALCIUM 20 MG TAB PO SCH (21:00)
[2020-03-17] MEDS: INSULIN REGULAR PUMP SCH ×4 (00:12→18:10)
[2020-03-17] MEDS: KETOROLAC 30 MG/ML VIAL IV PRN ×3 (05:27→18:03)
[2020-03-17] MEDS: ENOXAPARIN INJ 40 MG/0.4 ML SYR SQ SCH ×2 (06:02→18:08)
[2020-03-17 06:59] LABS: Basophils # (auto) 0.01 K/uL (0-0.2); Basophils % (auto) 0.1 %; Eosinophils # (auto) 0.07 K/uL (0-0.5); Eosinophils % (auto) 0.7 %; Hematocrit (blood only) 34.6 % (37-47); Hemoglobin 11.7 g/dL (12.0-16.0); Immature Granulocytes # (auto) 0.02 K/uL (0.00-0.02); Immature Granulocytes % (auto) 0.2 %; Lymphocytes # (auto) 1.01 K/uL (1.2-3.4); Mean Corpuscular Hemoglobin 27.8 pg (25-34); Mean Corpuscular Hgb Conc 33.8 g/dL (32-36); Mean Corpuscular Volume 82.2 fL (80-100); Mean Platelet Volume 9.1 fL (7.4-10.4); Monocytes # (auto) 0.69 K/uL (0.11-0.59); Monocytes % (auto) 6.8 %; Neutrophils # (auto) 8.35 K/uL (1.4-6.5); Neutrophils % (auto) 82.2 %; Platelet Count 193 K/uL (130-400); RDW Coefficient of Variation 13.3 % (11.5-14.5); RDW Standard Deviation 40.1 fL (36.4-46.3); Red Blood Count 4.21 M/uL (4.2-5.4); White Blood Count 10.15 K/uL (4.8-10.8)
[2020-03-17 07:21] LABS: Albumin Level 2.9 gm/dl (3.4-5.0); BUN Creatinine Ratio 14.6 (10-20); Calcium 8.5 mg/dl (8.5-10.1); Creatinine Clr Calc Pharmacy 86.7 ml/min; Est GFR (African American) 98.4; Est GFR (Non-African American) 84.9; Potassium 3.9 mmol/L (3.5-5.1)
[2020-03-17 07:23] LABS: Albumin Globulin Ratio 0.7 (0.9-2); Bilirubin,Total 0.7 mg/dl (0.2-1); Total Protein 6.9 gm/dl (6.4-8.2)
[2020-03-17] MEDS: POTASSIUM CHLORIDE 10 MEQ in SODIUM CHLORIDE 0.9% 1000ML 1,000 ML IV SCH ×2 (07:33→15:52)
[2020-03-17] MEDS ORDERED: CYANOCOBALAMIN 500 MCG TABLET (VITAMIN B-12) PO SCH (09:00)
[2020-03-17] MEDS ORDERED: FLUTICASONE/SALMETEROL (ADVAIR) 500/50 INH 14 PUFF INH SCH (09:00)
[2020-03-17] MEDS ORDERED: CHOLECALCIFEROL 1,000 UNITS 25 MCG TAB PO SCH (09:00)
[2020-03-17] MEDS: PANTOprazole 40 MG TAB PO SCH ×2 (09:04→22:06)
[2020-03-17] MEDS: MAGNESIUM CHLORIDE 64MG DELAYED REL TAB PO SCH (09:04)
[2020-03-17] MEDS: FLUTICASONE/VILANTEROL 200/25MCG 14 PUFFS/INHALER INH SCH (11:21)
[2020-03-17] MEDS ORDERED: HYDROmorphone INJ 0.5 MG/0.5 ML SYR IV PRN (15:17)
--- NOTE | 2020-03-17 15:22 | Hospitalist Progress Note ---
Date of Service March 17, 2020 Assessment & Plan (1) Pancreatitis: Mrs. Saldana is a 54 year old female with a history Type 2 Diabetes Mellitus (on Omnipod insulin pump), Hypertension, Dyslipidemia, GERD, Schatzki's Ring, Irritable Bowel Syndrome, DUYEN on CPAP, and Asthma who presents w/ Acute Pancreatitis. She complains of midepigastric and left upper quadrant pain x 4 days with associated nausea, decreased appetite, and 1 episode of vomiting. She describes the midepigastric and LUQ pain as a pressure and a burning sensation. The pain is worsened by being upright, and it's worse after eating. No fever or chills. She does not appear to be dehydrated. CT Scan of the Abdomen showed mild to moderate stranding and fluid centered on the pancreatic tail consistent with acute pancreatitis, no evidence of biliary or pancreatic duct obstruction or dilation. Lipase level is 339 U/L. LFT's are unremarkable. WBC# is elevated. Is improved with pain somewhat today with toradol but pain med does not last. TG normal, calcium normal, no EtOH use, no gallstones. Could possibly be from Victoza? Statin? -continue bowel rest but can have sips and chips -continue IVFs but change to LR and increase rate to 175mL/hr -trial of IV dilaudid low dose 0.25mg to see if helps pain and doesn't cause nausea like morphine does -- Monitor daily CBC with Diff, CMP. -dc non-critical meds like vitamins to minimize po intake -hold statin, Victoza -consult GI to see if needs EUS perhaps as outpt? (2) Type 2 diabetes mellitus with insulin therapy: -- Stop Victoza for now, as pancreatitis and GI symptoms are known side effects of this medication. -- Patient managing her own Omnipod Insulin Pump, monitor BSG's. -- Basal Rate at 0:00 1.4, at 0800 1.15, and at 1730 1.45. -- Bolus Insulin to carb ratio 8, correction factor 22. -- Patient typically takes a total daily dose 53 units. (3) Hyperlipidemia: lipids good hold statin for pancreatitis (4) GERD (gastroesophageal reflux disease): -- Continue ppi (5) Hypertension: BPs controlled not on meds at home (6) Obesity: BMI 40.4 encouraged weight loss, low carb diet (7) Fatty liver: noted on CT and US advised weight loss (8) Hepatosplenomegaly: likely secondary to fatty liver advised weight loss (9) DUYEN on CPAP: continue home CPAP (10) Asthma: no acute issues inhalers prn (11) DVT prophylaxis: Lovenox SQ Dispo-continued stay Admission and Anticipated Discharge Date Admission Date: March 16, 2020 Subjective Pain improved with toradol but doesn't last, asking for something else to help. No N/V/D, last BM was 2 days ago. Abd pain in epigastric region. No CP/SOB. Review of Systems Review of Systems: All systems reviewed & are unremarkable except as noted in HPI & below Physical Exam Constitutional: WD/WN, vitals as above + obese Eyes: + anicteric sclerae ENMT: external ear and nose normal, oropharynx normal Neck: trachea midline, no thyromegaly Respiratory: normal respiratory effort, lungs clear to auscultation Cardiovascular: RRR, no murmur, no edema Chest (Breasts): Chest: normal inspection of chest Gastrointestinal (Abdomen): Inspection/Auscultation: abdomen normal to inspection, + abdomen distended (mild) and normal bowel sounds; Ch-Cheney sign absent Percussion/Palpation: + abdomen tender (in epigastric region w/o guarding or rebound tenderness) and abdomen soft Musculoskeletal: Extremities: extremities normal to inspection; no cyanosis and no clubbing Skin: no rashes, warm and dry Neurologic: moves all extremities and awake; no focal motor deficits Psychiatric: A+Ox3, euthymic affect Lymphatic: no lymphedema Results & Data Results & Data ([facility]) Vital Signs (Past 12 Hours) Vital Signs Temp Pulse Resp BP Pulse Ox 03/17/20 07:07 36.9 C 93 H 18 111/65 93 Laboratory Results 03/17/20 03/17/20 03/17/20 Range/Units 17:58 12:07 06:20 WBC (4.8-10.8) K/uL RBC (4.2-5.4) M/uL Hgb (12.0-16.0) g/dL Hct (37-47) % MCV (80-100) fL MCH (25-34) pg MCHC (32-36) g/dL RDW Std Deviation (36.4-46.3) fL RDW Coeff of Samantha (11.5-14.5) % Plt Count (130-400) K/uL MPV (7.4-10.4) fL Immature Gran % (Auto) % Neut % (Auto) % Lymph % (Auto) % [place] % (Auto) % Eos % (Auto) % Baso % (Auto) % Neut # (Auto) (1.4-6.5) K/uL Lymph # (Auto) (1.2-3.4) K/uL [place] # (Auto) (0.11-0.59) K/uL Eos # (Auto) (0-0.5) K/uL Baso # (Auto) (0-0.2) K/uL Immature Gran # (Auto) (0.00-0.02) K/uL Sodium 141 (136-145) mmol/L Potassium 3.9 (3.5-5.1) mmol/L Chloride 112 H (98-107) mmol/L Carbon Dioxide 27 (21-32) mmol/L Anion Gap 2.0 L (3-11) BUN 12 (7-18) mg/dl Creatinine 0.79 (0.6-1.2) mg/dl Est Cr Clr Drug Dosing 86.7 ml/min Est GFR ( Amer) 98.4 Est GFR (Non-Af Amer) 84.9 BUN/Creatinine Ratio 14.6 (10-20) Glucose 176 H (70-99) mg/dl POC Glucose 96 113 H (70-99) mg/dl Calcium 8.5 (8.5-10.1) mg/dl Total Bilirubin 0.7 (0.2-1) mg/dl AST 6 L (15-37) U/L ALT 15 (12-78) U/L Alkaline Phosphatase 71 (45-117) U/L Total Protein 6.9 (6.4-8.2) gm/dl Albumin 2.9 L (3.4-5.0) gm/dl Globulin 4.0 (2.5-4.0) gm/dl Albumin/Globulin Ratio 0.7 L (0.9-2) Triglycerides 136 (0-150) mg/dl Cholesterol 121 (0-200) mg/dl LDL Cholesterol, Calc 45 mg/dl VLDL Cholesterol, Calc 27 mg/dl HDL Cholesterol 49 mg/dl Cholesterol/HDL Ratio 3 03/17/20 03/17/20 03/16/20 Range/Units 06:20 06:01 23:45 WBC 10.15 (4.8-10.8) K/uL RBC 4.21 (4.2-5.4) M/uL Hgb 11.7 L (12.0-16.0) g/dL Hct 34.6 L (37-47) % MCV 82.2 (80-100) fL MCH 27.8 (25-34) pg MCHC 33.8 (32-36) g/dL RDW Std Deviation 40.1 (36.4-46.3) fL RDW Coeff of Samantha 13.3 (11.5-14.5) % Plt Count 193 (130-400) K/uL MPV 9.1 (7.4-10.4) fL Immature Gran % (Auto) 0.2 % Neut % (Auto) 82.2 % Lymph % (Auto) 10.0 % [place] % (Auto) 6.8 % Eos % (Auto) 0.7 % Baso % (Auto) 0.1 % Neut # (Auto) 8.35 H (1.4-6.5) K/uL Lymph # (Auto) 1.01 L (1.2-3.4) K/uL [place] # (Auto) 0.69 H (0.11-0.59) K/uL Eos # (Auto) 0.07 (0-0.5) K/uL Baso # (Auto) 0.01 (0-0.2) K/uL Immature Gran # (Auto) 0.02 (0.00-0.02) K/uL Sodium (136-145) mmol/L Potassium (3.5-5.1) mmol/L Chloride (98-107) mmol/L Carbon Dioxide (21-32) mmol/L Anion Gap (3-11) BUN (7-18) mg/dl Creatinine (0.6-1.2) mg/dl Est Cr Clr Drug Dosing ml/min Est GFR ( Amer) Est GFR (Non-Af Amer) BUN/Creatinine Ratio (10-20) Glucose (70-99) mg/dl POC Glucose 177 H 162 H (70-99) mg/dl Calcium (8.5-10.1) mg/dl Total Bilirubin (0.2-1) mg/dl AST (15-37) U/L ALT (12-78) U/L Alkaline Phosphatase (45-117) U/L Total Protein (6.4-8.2) gm/dl Albumin (3.4-5.0) gm/dl Globulin (2.5-4.0) gm/dl Albumin/Globulin Ratio (0.9-2) Triglycerides (0-150) mg/dl Cholesterol (0-200) mg/dl LDL Cholesterol, Calc mg/dl VLDL Cholesterol, Calc mg/dl HDL Cholesterol mg/dl Cholesterol/HDL Ratio PG Care Time/CCT Total # of Minutes Spent Total Time Spent with Patient: Total time spent is greater than 50% in coordination of care (as documented) at patient's floor/unit and/or counseling patient: Coding Level of Care Code 94063 Subseq Hosp Care Lvl 3 Diagnoses Pancreatitis K85.80 Acute pancreatitis complication: unspecified Chronicity: acute Pancreatitis type: other Type 2 diabetes mellitus with insulin therapy E11.9; Z79.4 Hyperlipidemia E78.5 GERD (gastroesophageal reflux disease) K21.9 Hypertension I10 Obesity E66.9 Fatty liver K76.0 Hepatosplenomegaly R16.2 DUYEN on CPAP G47.33; Z99.89 Asthma J45.909 DVT prophylaxis Z29.9 (1) Pancreatitis Acute pancreatitis complication: unspecified Chronicity: acute Pancreatitis type: other Qualified Code(s): K85.80 - Other acute pancreatitis without necrosis or infection
[2020-03-17] MEDS: LACTATED RINGER'S 1,000 ML IV SCH ×2 (15:46→22:02)
[2020-03-17] MEDS: MONTELUKAST SODIUM 10 MG TABLET PO SCH (22:06)
[2020-03-17] MEDS: MELATONIN 3 MG TAB PO SCH (22:06)
[2020-03-17] MEDS: CETIRIZINE HCL 10 MG TABLET PO SCH (22:06)
[2020-03-17] MEDS: CITALOPRAM 20 MG TAB PO SCH (22:06)
[2020-03-18] MEDS: INSULIN REGULAR PUMP SCH ×6 (00:18→21:17)
[2020-03-18] MEDS: KETOROLAC 30 MG/ML VIAL IV PRN ×4 (02:30→21:20)
[2020-03-18] MEDS: LACTATED RINGER'S 1,000 ML IV SCH ×4 (03:38→21:19)
[2020-03-18] MEDS ORDERED: CARBOHYDRATES FOR HYPOGLYCEMIA PO PRN (06:04)
[2020-03-18] MEDS ORDERED: GLUCAGON FOR INJ 1 MG VIAL SQ PRN (06:04)
[2020-03-18] MEDS ORDERED: DEXTROSE 50% 50 ML SYRINGE IV PRN (06:04)
[2020-03-18] MEDS ORDERED: GLUCOSE 40% GEL 15 GM TUBE PO PRN (06:04)
[2020-03-18] MEDS ORDERED: GLUCOSE 10 TABS/TUBE PO PRN (06:04)
[2020-03-18] MEDS: ENOXAPARIN INJ 40 MG/0.4 ML SYR SQ SCH ×2 (06:08→18:09)
[2020-03-18] MEDS ORDERED: GLUCOSE 40% GEL 15 GM TUBE PO ONE (06:11)
[2020-03-18 06:25] LABS: Basophils # (auto) 0.02 K/uL (0-0.2); Basophils % (auto) 0.3 %; Eosinophils # (auto) 0.25 K/uL (0-0.5); Eosinophils % (auto) 3.4 %; Hematocrit (blood only) 31.6 % (37-47); Hemoglobin 10.7 g/dL (12.0-16.0); Immature Granulocytes # (auto) 0.01 K/uL (0.00-0.02); Immature Granulocytes % (auto) 0.1 %; Lymphocytes # (auto) 1.59 K/uL (1.2-3.4); Lymphocytes % (auto) 21.7 %; Mean Corpuscular Hemoglobin 27.7 pg (25-34); Mean Corpuscular Hgb Conc 33.9 g/dL (32-36); Mean Corpuscular Volume 81.9 fL (80-100); Mean Platelet Volume 9.2 fL (7.4-10.4); Monocytes # (auto) 0.47 K/uL (0.11-0.59); Monocytes % (auto) 6.4 %; Neutrophils # (auto) 4.99 K/uL (1.4-6.5); Neutrophils % (auto) 68.1 %; Platelet Count 188 K/uL (130-400); RDW Coefficient of Variation 13.1 % (11.5-14.5); RDW Standard Deviation 39.2 fL (36.4-46.3); Red Blood Count 3.86 M/uL (4.2-5.4); White Blood Count 7.33 K/uL (4.8-10.8)
[2020-03-18 06:54] LABS: Albumin Level 2.5 gm/dl (3.4-5.0); BUN Creatinine Ratio 19.9 (10-20); Calcium 8.6 mg/dl (8.5-10.1); Creatinine Clr Calc Pharmacy 100.7 ml/min; Est GFR (African American) 114.9; Est GFR (Non-African American) 99.2; Potassium 3.7 mmol/L (3.5-5.1)
[2020-03-18 06:57] LABS: Albumin Globulin Ratio 0.6 (0.9-2); Bilirubin,Total 0.6 mg/dl (0.2-1); Total Protein 6.5 gm/dl (6.4-8.2)
[2020-03-18] MEDS: FLUTICASONE/VILANTEROL 200/25MCG 14 PUFFS/INHALER INH SCH (08:05)
[2020-03-18] MEDS: PANTOprazole 40 MG TAB PO SCH ×2 (08:05→21:19)
--- NOTE | 2020-03-18 10:12 | Gastrointestinal Consultation ---
Date of Consultation March 18, 2020 Assessment & Plan (1) Pancreatitis: The patient experienced onset of epigastric and upper abdominal pain 5 days ago. Began experiencing nausea and vomiting 2 to 3 days ago. Subsequently admitted for further management with CT A&P demonstrating acute pancreatitis. Liver function testing and lipase have been within normal limits since admission. Patient reports she feels improved since time of admission. Victoza and Crestor are currently on hold. I have contacted pharmacist, Katia, for complete medication review to determine other potential medication causes for pancreatitis. Would recommend continuation of supportive therapies as currently ordered. Advance diet as tolerated. Will arrange GI office visit follow-up as outpatient to discuss EUS. Please refer to supervising physician addendum for further recommendations. History of Present Illness Attending Physician: Maria Del Carmen Whittington MD History of Present Illness The patient is a pleasant 54-year-old female with past medical history to include asthma, anxiety, depression, type 2 diabetes with insulin pump, GERD, gastritis, hyperlipidemia, migraines, obstructive sleep apnea, obesity, Schatzki's ring who presented to the emergency department 03/16/2020 with complaints of acute epigastric pain, nausea, vomiting. CT abdomen and pelvis demonstrated mild to moderate stranding and fluid centered on the pancreatic tail consistent with acute pancreatitis. A liver ultrasound was also obtained which demonstrated no cholelithiasis or sonographic evidence of acute cholecystitis. No biliary ductal dilatation. Hepatic steatosis. Patient laboratory testing with unremarkable liver function test, lipase 339, white count of 12.79. She was subsequently admitted for further management. GI was consulted due to acute pancreatitis with ? need for outpatient EUS. On exam/interview today, the patient reports that she began having epigastric pain Sunday morning 03/13/2020. She states pain was epigastric and left upper quadrant. She states that she began having nausea and vomiting early Sunday morning which was 03/15/2020. Denies any fever. Denies unintentional weight loss. Reports that she had a normal appetite prior to onset of symptoms. She states she has had no appetite since symptoms began. She does have increased abdominal bloating. Denies any melena or hematochezia. During our conversation she reports that she also had similar symptoms to her current situation in 11/2019 while traveling. The symptoms lasted approximately 1 week and resolved without intervention. 05/08/2017: Colonoscopy demonstrated nonbleeding internal hemorrhoids with no specimens collected. 08/27/2015: Colonoscopy obtained demonstrating examined portion of ileum which was normal. There was one 4 mm polyp in sigmoid colon. 06/29/2014: EGD was obtained which demonstrated normal examined duodenum, multiple gastric polyps, normal esophagus. There were biopsies obtained which demonstrated benign gastric polyp with no significant abnormalities of the duodenum. The patient is a lifetime non-smoker with no significant secondhand smoke exposures. She reports she consumes alcohol approximately 2-3 times per year. Denies use of recreational drugs including marijuana. She is and has 4 adult children. 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 Allergies Allergy/AdvReac Type Severity Reaction Status Date / Time morphine Allergy Unknown VOMITING, Verified 03/16/20 07:33 NAUSEA pseudoephedrine Allergy Unknown ` Verified 03/16/20 07:33 Sulfa (Sulfonamide Allergy Unknown Unknown Verified 03/16/20 07:33 Antibiotics) adhesive tape Allergy Unknown Verified 03/16/20 07:33 simvastatin AdvReac Intermediate MUSCLE PAIN Verified 03/16/20 07:33 Home Medications Medication Instructions Recorded Confirmed Type albuterol sulfate 90 mcg/actuation 2 puffs INH Q6H PRN 10/24/18 03/16/20 History aerosol inhaler cetirizine 10 mg tablet 10 mg PO HS tab 10/24/18 03/16/20 History clobetasol 0.05 % topical cream 1 appln TOPICAL BID PRN gm 10/24/18 03/16/20 History dicyclomine 20 mg tablet 20 mg PO Q6H PRN tab 10/24/18 03/16/20 History magnesium oxide 400 mg (241.3 mg 400 mg PO BID tab 10/24/18 03/16/20 History magnesium) tablet montelukast 10 mg tablet 10 mg PO HS tab 10/24/18 03/16/20 History omeprazole 20 mg tablet,delayed 20 mg PO BID tab 10/24/18 03/16/20 History release rosuvastatin 40 mg tablet 40 mg PO HS #90 tab 10/24/18 03/16/20 History triamcinolone acetonide 0.5 % 1 appln TOPICAL 2XWK PRN gm 10/24/18 03/16/20 History topical cream valacyclovir 1 gram tablet 1,000 mg PO DAILY PRN tab 10/24/18 03/16/20 History lancets #50 ea 10/28/18 11/11/19 History cholecalciferol (vitamin D3) 1,000 unit PO QAM 01/03/19 03/16/20 History [Vitamin D3] citalopram 40 mg tablet 60 mg PO HS tab 02/27/19 03/16/20 History Novolin R Regular U-100 Insuln 100 65 units SQ .COMPLEX 90 Days #6 03/21/19 03/16/20 Rx unit/mL injection solution vial NS acetone (urine) test #25 ea 03/21/19 11/11/19 History cyanocobalamin (vitamin B-12) 0 mcg PO QAM cap 03/21/19 03/16/20 History 1,000 mcg capsule fluticasone 500 mcg-salmeterol 50 1 inh INHALATION QAM ea 03/21/19 03/16/20 History mcg/dose blistr powdr for inhalation Victoza 3-Mitchell 0.6 mg/0.1 mL (18 See Rx Instructions SQ .COMPLEX #9 05/15/19 03/16/20 Rx mg/3 mL) subcutaneous pen injector ml NS pen needle, diabetic 32 gauge x #100 ea 05/19/19 11/11/19 Rx 5/32" blood sugar diagnostic #400 ea 06/26/19 11/11/19 Rx carica papaya [Papaya Enzyme] 4 tab PO PC PRN 03/16/20 03/16/20 History melatonin 5 mg PO HS 03/16/20 03/16/20 History Patient History Medical History (Updated 03/17/20 @ 23:29 by Maria Del Carmen Whittington MD) Asthma Closed fracture of lateral portion of left tibial plateau Eustachian tube dysfunction Fatty liver GERD (gastroesophageal reflux disease) Hepatosplenomegaly Hyperlipidemia Hypertension Mixed conductive and sensorineural hearing loss of left ear with restricted hearing of right ear DUYEN on CPAP Sensorineural hearing loss of both ears Type 2 diabetes mellitus with insulin therapy Surgical History History of ear surgery Left-2015 History of elbow surgery Left History of surgery cyst removal Family History Mother Asthma Grandfather Hypertension Heart disease Grandmother Hypertension Stroke Father Heart disease Cancer Aunt Cancer Other Environmental allergies Hearing loss No family history of bleeding disorder Social History Smoking Status: Never smoker Second Hand Exposure: No; Hx Alcohol Use: No Hx Substance Use: No Preferred Language: Malian Communication Ability: Effective Paper Handler Required: No Beliefs That Will Affect Care: None marital status: Current Living Situation: Spouse and Family current occupational status: employed 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 Other Information That Helps Us Care for You: No Feels Safe at Home: Yes Safety Concerns: Feels Safe At This Time Assistive Devices: None Assistive Devices Comment: CPAP at night: Hearing Aids at home Review of Systems Review of Systems: All systems reviewed & are unremarkable except as noted in HPI & below Physical Exam Constitutional: + obese Eyes: no eyelid abnormality and no conjunctival abnormality wears corrective lenses ENMT: Ears: no hearing impairment Neck: normal visual inspection Respiratory: normal respiratory effort, lungs clear to auscultation Cardiovascular: RRR, no murmur, no edema Gastrointestinal (Abdomen): Inspection/Auscultation: abdomen normal to inspection and normal bowel sounds; abdomen not distended Percussion/Palpation: + abdomen tender (mild tenderness with RUQ and epigastric palpation) and abdomen soft; no guarding and abdomen not rigid insulin pump upper abdomen Musculoskeletal: Extremities: no cyanosis and no clubbing Psychiatric: Orientation: alert and oriented x 3 Results & Data ([facility]) Vital Signs (Past 12 Hours) Vital Signs Temp Pulse Resp BP BP Pulse Ox 03/18/20 07:37 36.5 C 60 18 111/71 96 03/18/20 00:00 36.9 C 73 18 108/66 95 Laboratory Results - last 24 hr 03/17/20 03/17/20 03/17/20 12:07 17:58 23:59 WBC RBC Hgb Hct MCV MCH MCHC RDW Std Deviation RDW Coeff of Samantha Plt Count MPV Immature Gran % (Auto) Neut % (Auto) Lymph % (Auto) [place] % (Auto) Eos % (Auto) Baso % (Auto) Neut # (Auto) Lymph # (Auto) [place] # (Auto) Eos # (Auto) Baso # (Auto) Immature Gran # (Auto) Sodium Potassium Chloride Carbon Dioxide Anion Gap BUN Creatinine Est Cr Clr Drug Dosing Est GFR ( Amer) Est GFR (Non-Af Amer) BUN/Creatinine Ratio Glucose POC Glucose 113 H 96 95 Calcium Total Bilirubin AST ALT Alkaline Phosphatase Total Protein Albumin Globulin Albumin/Globulin Ratio Lipase 03/18/20 03/18/20 03/18/20 05:25 05:25 05:56 WBC 7.33 RBC 3.86 L Hgb 10.7 L Hct 31.6 L MCV 81.9 MCH 27.7 MCHC 33.9 RDW Std Deviation 39.2 RDW Coeff of Samantha 13.1 Plt Count 188 MPV 9.2 Immature Gran % (Auto) 0.1 Neut % (Auto) 68.1 Lymph % (Auto) 21.7 [place] % (Auto) 6.4 Eos % (Auto) 3.4 Baso % (Auto) 0.3 Neut # (Auto) 4.99 Lymph # (Auto) 1.59 [place] # (Auto) 0.47 Eos # (Auto) 0.25 Baso # (Auto) 0.02 Immature Gran # (Auto) 0.01 Sodium 142 Potassium 3.7 Chloride 112 H Carbon Dioxide 26 Anion Gap 4.0 BUN 14 Creatinine 0.68 Est Cr Clr Drug Dosing 100.7 Est GFR ( Amer) 114.9 Est GFR (Non-Af Amer) 99.2 BUN/Creatinine Ratio 19.9 Glucose 79 POC Glucose 88 Calcium 8.6 Total Bilirubin 0.6 AST 11 L ALT 14 Alkaline Phosphatase 77 Total Protein 6.5 Albumin 2.5 L Globulin 4.0 Albumin/Globulin Ratio 0.6 L Lipase 276 03/18/20 06:31 WBC RBC Hgb Hct MCV MCH MCHC RDW Std Deviation RDW Coeff of Samantha Plt Count MPV Immature Gran % (Auto) Neut % (Auto) Lymph % (Auto) [place] % (Auto) Eos % (Auto) Baso % (Auto) Neut # (Auto) Lymph # (Auto) [place] # (Auto) Eos # (Auto) Baso # (Auto) Immature Gran # (Auto) Sodium Potassium Chloride Carbon Dioxide Anion Gap BUN Creatinine Est Cr Clr Drug Dosing Est GFR ( Amer) Est GFR (Non-Af Amer) BUN/Creatinine Ratio Glucose POC Glucose 96 Calcium Total Bilirubin AST ALT Alkaline Phosphatase Total Protein Albumin Globulin Albumin/Globulin Ratio Lipase (1) Pancreatitis Acute pancreatitis complication: unspecified Chronicity: acute Pancreatitis type: other Qualified Code(s): K85.80 - Other acute pancreatitis without necrosis or infection
[2020-03-18 10:45] LABS: Ferritin 143.4 ng/ml (8-388)
[2020-03-18] MEDS ORDERED: Nursing to Pharmacy Communication SCH (12:45)
[2020-03-18] MEDS: ALUMINUM/MAGNESIUM/SIMETH (MAALOX MAX) 30 ML UDC PO PRN ×2 (15:38→21:21)
--- NOTE | 2020-03-18 16:35 | Hospitalist Progress Note ---
Date of Service March 18, 2020 Assessment & Plan (1) Pancreatitis: Mrs. Saldana is a 54 year old female with a history Type 2 Diabetes Mellitus (on Omnipod insulin pump), Hypertension, Dyslipidemia, GERD, Schatzki's Ring, Irritable Bowel Syndrome, DUYEN on CPAP, and Asthma who presents w/ Acute Pancreatitis. She complains of midepigastric and left upper quadrant pain x 4 days with associated nausea, decreased appetite, and 1 episode of vomiting. She describes the midepigastric and LUQ pain as a pressure and a burning sensation. The pain is worsened by being upright, and it's worse after eating. No fever or chills. She does not appear to be dehydrated. CT Scan of the Abdomen showed mild to moderate stranding and fluid centered on the pancreatic tail consistent with acute pancreatitis, no evidence of biliary or pancreatic duct obstruction or dilation. Lipase level is 339 U/L. LFT's are unremarkable. WBC# is elevated. Pain is improved from previous, continues to take Toradol TG normal, calcium normal, no EtOH use, no gallstones. Could possibly be from Victoza? Statin? Also with microcytic anemia, question if has peptic ulcer disease? -Diet was advanced to clear liquids as per GI, but had increased pain afterwards-continue clear liquids but advised her to only take in small amounts at a time -continue IVFs with LR at 175mL/hr -Continue Toradol as needed and IV dilaudid low dose 0.25mg as needed severe pain -- Monitor daily CBC with Diff, CMP, lipase. -hold statin, Victoza -consult GI to see if needs EUS/EGD perhaps as outpt to take a look at the pancreas as well as upper GI tract given microcytic anemia (2) Microcytic anemia: Hemoglobin 10.7, MCV low at 81 Iron studies indicate iron deficiency transferrin saturation 10% Discussed with GI about possibility of outpatient EGD Hemoccult stool (3) Type 2 diabetes mellitus with insulin therapy: -- Stop Victoza for now, as pancreatitis and GI symptoms are known side effects of this medication. -- Patient managing her own Omnipod Insulin Pump, monitor BSG's. -- Basal Rate at 0:00 1.4, at 0800 1.15, and at 1730 1.45. -- Bolus Insulin to carb ratio 8, correction factor 22. -- Patient typically takes a total daily dose 53 units. Blood sugars well controlled as she is eating minimally (4) Hyperlipidemia: lipids good hold statin for pancreatitis (5) GERD (gastroesophageal reflux disease): -- Continue ppi (6) Hypertension: BPs controlled not on meds at home (7) Obesity: BMI 40.4 encouraged weight loss, low carb diet (8) Fatty liver: noted on CT and US advised weight loss (9) Hepatosplenomegaly: likely secondary to fatty liver advised weight loss (10) DUYEN on CPAP: continue home CPAP (11) Asthma: no acute issues inhalers prn (12) DVT prophylaxis: Lovenox SQ Dispo-continued stay Admission and Anticipated Discharge Date Admission Date: March 16, 2020 Subjective Still having some epigastric pain 5/10 worse after eating clears for lunch today, but overall better than yesterday. She had a BM today that was loose, nonbloody. No nausea. No CP/SOB. Review of Systems Review of Systems: All systems reviewed & are unremarkable except as noted in HPI & below Physical Exam Constitutional: WD/WN, vitals as above + obese Eyes: + anicteric sclerae Neck: trachea midline, no thyromegaly Respiratory: normal respiratory effort, lungs clear to auscultation Cardiovascular: RRR, no murmur, no edema Chest (Breasts): Chest: normal inspection of chest Gastrointestinal (Abdomen): Inspection/Auscultation: abdomen normal to inspection, + abdomen distended (mild) and normal bowel sounds Percussion/Palpation: + abdomen tender (in epigastric region w/o guarding or lucero ound tenderness) and abdomen soft Musculoskeletal: Extremities: extremities normal to inspection; no cyanosis and no clubbing Skin: no rashes, warm and dry Neurologic: moves all extremities and awake; no focal motor deficits Psychiatric: A+Ox3, euthymic affect Lymphatic: no lymphedema Results & Data Results & Data ([facility]) Vital Signs (Past 12 Hours) Vital Signs Temp Pulse Resp BP Pulse Ox 03/18/20 15:03 36.8 C 61 18 124/79 97 03/18/20 07:37 36.5 C 60 18 111/71 96 Laboratory Results 03/18/20 03/18/20 03/18/20 Range/Units 11:55 06:31 05:56 WBC (4.8-10.8) K/uL RBC (4.2-5.4) M/uL Hgb (12.0-16.0) g/dL Hct (37-47) % MCV (80-100) fL MCH (25-34) pg MCHC (32-36) g/dL RDW Std Deviation (36.4-46.3) fL RDW Coeff of Samantha (11.5-14.5) % Plt Count (130-400) K/uL MPV (7.4-10.4) fL Immature Gran % (Auto) % Neut % (Auto) % Lymph % (Auto) % [place] % (Auto) % Eos % (Auto) % Baso % (Auto) % Neut # (Auto) (1.4-6.5) K/uL Lymph # (Auto) (1.2-3.4) K/uL [place] # (Auto) (0.11-0.59) K/uL Eos # (Auto) (0-0.5) K/uL Baso # (Auto) (0-0.2) K/uL Immature Gran # (Auto) (0.00-0.02) K/uL Sodium (136-145) mmol/L Potassium (3.5-5.1) mmol/L Chloride (98-107) mmol/L Carbon Dioxide (21-32) mmol/L Anion Gap (3-11) BUN (7-18) mg/dl Creatinine (0.6-1.2) mg/dl Est Cr Clr Drug Dosing ml/min Est GFR ( Amer) Est GFR (Non-Af Amer) BUN/Creatinine Ratio (10-20) Glucose (70-99) mg/dl POC Glucose 86 96 88 (70-99) mg/dl Calcium (8.5-10.1) mg/dl Iron (35-150) mcg/dl TIBC (250-450) mcg/dl Transferrin (200-360) mg/dl Transferrin % Sat (15-50) % Ferritin (8-388) ng/ml Total Bilirubin (0.2-1) mg/dl AST (15-37) U/L ALT (12-78) U/L Alkaline Phosphatase (45-117) U/L Total Protein (6.4-8.2) gm/dl Albumin (3.4-5.0) gm/dl Globulin (2.5-4.0) gm/dl Albumin/Globulin Ratio (0.9-2) Lipase (73-393) U/L 03/18/20 03/18/20 03/18/20 Range/Units 05:25 05:25 05:25 WBC 7.33 (4.8-10.8) K/uL RBC 3.86 L (4.2-5.4) M/uL Hgb 10.7 L (12.0-16.0) g/dL Hct 31.6 L (37-47) % MCV 81.9 (80-100) fL MCH 27.7 (25-34) pg MCHC 33.9 (32-36) g/dL RDW Std Deviation 39.2 (36.4-46.3) fL RDW Coeff of Samantha 13.1 (11.5-14.5) % Plt Count 188 (130-400) K/uL MPV 9.2 (7.4-10.4) fL Immature Gran % (Auto) 0.1 % Neut % (Auto) 68.1 % Lymph % (Auto) 21.7 % [place] % (Auto) 6.4 % Eos % (Auto) 3.4 % Baso % (Auto) 0.3 % Neut # (Auto) 4.99 (1.4-6.5) K/uL Lymph # (Auto) 1.59 (1.2-3.4) K/uL [place] # (Auto) 0.47 (0.11-0.59) K/uL Eos # (Auto) 0.25 (0-0.5) K/uL Baso # (Auto) 0.02 (0-0.2) K/uL Immature Gran # (Auto) 0.01 (0.00-0.02) K/uL Sodium 142 (136-145) mmol/L Potassium 3.7 (3.5-5.1) mmol/L Chloride 112 H (98-107) mmol/L Carbon Dioxide 26 (21-32) mmol/L Anion Gap 4.0 (3-11) BUN 14 (7-18) mg/dl Creatinine 0.68 (0.6-1.2) mg/dl Est Cr Clr Drug Dosing 100.7 ml/min Est GFR ( Amer) 114.9 Est GFR (Non-Af Amer) 99.2 BUN/Creatinine Ratio 19.9 (10-20) Glucose 79 (70-99) mg/dl POC Glucose (70-99) mg/dl Calcium 8.6 (8.5-10.1) mg/dl Iron 25 L (35-150) mcg/dl TIBC 222 L (250-450) mcg/dl Transferrin 180 L (200-360) mg/dl Transferrin % Sat 10 L (15-50) % Ferritin 143.4 (8-388) ng/ml Total Bilirubin 0.6 (0.2-1) mg/dl AST 11 L (15-37) U/L ALT 14 (12-78) U/L Alkaline Phosphatase 77 (45-117) U/L Total Protein 6.5 (6.4-8.2) gm/dl Albumin 2.5 L (3.4-5.0) gm/dl Globulin 4.0 (2.5-4.0) gm/dl Albumin/Globulin Ratio 0.6 L (0.9-2) Lipase 276 (73-393) U/L 03/17/20 03/17/20 Range/Units 23:59 17:58 WBC (4.8-10.8) K/uL RBC (4.2-5.4) M/uL Hgb (12.0-16.0) g/dL Hct (37-47) % MCV (80-100) fL MCH (25-34) pg MCHC (32-36) g/dL RDW Std Deviation (36.4-46.3) fL RDW Coeff of Samantha (11.5-14.5) % Plt Count (130-400) K/uL MPV (7.4-10.4) fL Immature Gran % (Auto) % Neut % (Auto) % Lymph % (Auto) % [place] % (Auto) % Eos % (Auto) % Baso % (Auto) % Neut # (Auto) (1.4-6.5) K/uL Lymph # (Auto) (1.2-3.4) K/uL [place] # (Auto) (0.11-0.59) K/uL Eos # (Auto) (0-0.5) K/uL Baso # (Auto) (0-0.2) K/uL Immature Gran # (Auto) (0.00-0.02) K/uL Sodium (136-145) mmol/L Potassium (3.5-5.1) mmol/L Chloride (98-107) mmol/L Carbon Dioxide (21-32) mmol/L Anion Gap (3-11) BUN (7-18) mg/dl Creatinine (0.6-1.2) mg/dl Est Cr Clr Drug Dosing ml/min Est GFR ( Amer) Est GFR (Non-Af Amer) BUN/Creatinine Ratio (10-20) Glucose (70-99) mg/dl POC Glucose 95 96 (70-99) mg/dl Calcium (8.5-10.1) mg/dl Iron (35-150) mcg/dl TIBC (250-450) mcg/dl Transferrin (200-360) mg/dl Transferrin % Sat (15-50) % Ferritin (8-388) ng/ml Total Bilirubin (0.2-1) mg/dl AST (15-37) U/L ALT (12-78) U/L Alkaline Phosphatase (45-117) U/L Total Protein (6.4-8.2) gm/dl Albumin (3.4-5.0) gm/dl Globulin (2.5-4.0) gm/dl Albumin/Globulin Ratio (0.9-2) Lipase (73-393) U/L PG Care Time/CCT Total # of Minutes Spent Total Time Spent with Patient: Total time spent is greater than 50% in coordination of care (as documented) at patient's floor/unit and/or counseling patient: Coding Level of Care Code 73550 Subseq Hosp Care Lvl 3 Diagnoses Pancreatitis K85.80 Acute pancreatitis complication: unspecified Chronicity: acute Pancreatitis type: other Microcytic anemia D50.9 Type 2 diabetes mellitus with insulin therapy E11.9; Z79.4 Hyperlipidemia E78.5 GERD (gastroesophageal reflux disease) K21.9 Hypertension I10 Obesity E66.9 Fatty liver K76.0 Hepatosplenomegaly R16.2 DUYEN on CPAP G47.33; Z99.89 Asthma J45.909 DVT prophylaxis Z29.9 (1) Pancreatitis Acute pancreatitis complication: unspecified Chronicity: acute Pancreatitis type: other Qualified Code(s): K85.80 - Other acute pancreatitis without necrosis or infection
--- NOTE | 2020-03-18 17:11 | Consultation Report ---
DATE OF CONSULTATION: 03/18/2020 Addendum note to Becky Horowitz's consult from earlier today. I reviewed the chart, labs, x-rays and interviewed and examined the patient. The patient had acute-onset pancreatitis involving the body and tail, the most likely etiology is her Victoza, which she started about 6 months ago. I recommended that this be discontinued and switched to an alternate agent. I think this is the most likely etiologic agent as no other causes have come to the forefront. The patient will be advanced to full liquid diet tonight and if she does well, we can advance her to a low-fat diet tomorrow. She does have low iron level and I will review her office records to see when she was last endoscoped to see if she needs any further evaluation of this as an outpatient.
[2020-03-18] MEDS: CETIRIZINE HCL 10 MG TABLET PO SCH (21:19)
[2020-03-18] MEDS: MONTELUKAST SODIUM 10 MG TABLET PO SCH (21:20)
[2020-03-18] MEDS: MELATONIN 3 MG TAB PO SCH (21:20)
[2020-03-18] MEDS: CITALOPRAM 20 MG TAB PO SCH (21:20)
[2020-03-19] MEDS: LACTATED RINGER'S 1,000 ML IV SCH ×3 (03:09→13:52)
[2020-03-19] MEDS: KETOROLAC 30 MG/ML VIAL IV PRN ×2 (04:20→22:34)
[2020-03-19 06:36] LABS: Basophils # (auto) 0.02 K/uL (0-0.2); Basophils % (auto) 0.4 %; Eosinophils % (auto) 7.3 %; Hematocrit (blood only) 31.5 % (37-47); Hemoglobin 10.8 g/dL (12.0-16.0); Immature Granulocytes # (auto) 0.01 K/uL (0.00-0.02); Immature Granulocytes % (auto) 0.2 %; Lymphocytes # (auto) 1.43 K/uL (1.2-3.4); Lymphocytes % (auto) 26.1 %; Mean Corpuscular Hemoglobin 27.6 pg (25-34); Mean Corpuscular Hgb Conc 34.3 g/dL (32-36); Mean Corpuscular Volume 80.6 fL (80-100); Mean Platelet Volume 9.5 fL (7.4-10.4); Monocytes # (auto) 0.37 K/uL (0.11-0.59); Monocytes % (auto) 6.8 %; Neutrophils # (auto) 3.25 K/uL (1.4-6.5); Neutrophils % (auto) 59.2 %; Platelet Count 185 K/uL (130-400); RDW Coefficient of Variation 12.9 % (11.5-14.5); RDW Standard Deviation 37.8 fL (36.4-46.3); Red Blood Count 3.91 M/uL (4.2-5.4); White Blood Count 5.48 K/uL (4.8-10.8)
[2020-03-19] MEDS: ENOXAPARIN INJ 40 MG/0.4 ML SYR SQ SCH ×2 (06:53→18:13)
[2020-03-19 07:10] LABS: Albumin Globulin Ratio 0.7 (0.9-2); Albumin Level 2.4 gm/dl (3.4-5.0); BUN Creatinine Ratio 11.3 (10-20); Bilirubin,Total 0.4 mg/dl (0.2-1); Calcium 8.9 mg/dl (8.5-10.1); Creatinine Clr Calc Pharmacy 91.3 ml/min; Est GFR (African American) 104.7; Est GFR (Non-African American) 90.4; Globulin 3.6 gm/dl (2.5-4.0); Potassium 3.5 mmol/L (3.5-5.1)
--- NOTE | 2020-03-19 08:14 | Gastroenterology Progress Note ---
Date of Service March 19, 2020 Assessment & Plan (1) Pancreatitis: The patient was admitted with CT A&P demonstrating acute pancreatitis. Liver function testing and lipase have been within normal limits since admission. Patient reports she feels improved since time of admission. Victoza and Crestor are currently on hold as potential medication causes for pancreatitis. Would recommend continuation of supportive therapies as currently ordered. Advance diet as tolerated. Will arrange GI office visit follow-up as outpatient. Please refer to supervising physician addendum for further recommendations. Admission and Anticipated Discharge Date Admission Date: March 16, 2020 Subjective Patient awake, alert, and oriented. Sitting upright in bed. Reports she is feeling better than yesterday. States she initially had increased abdominal pain after eating clear liquid tray. She was advanced to full liquid tray and tolerated that last night. She denies nausea or vomiting. Reports bowel movement yesterday which was loose. Denies melena or hematochezia. Reports epigastric and RUQ pain with palpation - states without palpation feels like a constant low-grade pressure. Review of Systems Review of Systems: All systems reviewed & are unremarkable except as noted in HPI & below Physical Exam Constitutional: + obese Eyes: no eyelid abnormality and no conjunctival abnormality ENMT: Ears: no hearing impairment Neck: normal visual inspection Respiratory: normal respiratory effort, lungs clear to auscultation Cardiovascular: RRR, no murmur, no edema Gastrointestinal (Abdomen): Inspection/Auscultation: abdomen normal to inspection and normal bowel sounds; abdomen not distended Percussion/Palpation: + abdomen tender (mild tenderness with RUQ and epigastric palpation) and abdomen soft; no guarding and abdomen not rigid Musculoskeletal: Extremities: no cyanosis and no clubbing Psychiatric: Orientation: alert and oriented x 3 Results & Data ([facility]) Vital Signs (Past 12 Hours) Vital Signs Temp Pulse Resp BP BP Pulse Ox 03/19/20 07:11 36.4 C L 59 L 16 124/81 96 03/19/20 00:05 36.8 C 66 16 111/75 92 Laboratory Results - last 24 hr 03/18/20 03/18/20 03/18/20 05:25 11:55 17:11 WBC RBC Hgb Hct MCV MCH MCHC RDW Std Deviation RDW Coeff of Samantha Plt Count MPV Immature Gran % (Auto) Neut % (Auto) Lymph % (Auto) [place] % (Auto) Eos % (Auto) Baso % (Auto) Neut # (Auto) Lymph # (Auto) [place] # (Auto) Eos # (Auto) Baso # (Auto) Immature Gran # (Auto) Sodium Potassium Chloride Carbon Dioxide Anion Gap BUN Creatinine Est Cr Clr Drug Dosing Est GFR ( Amer) Est GFR (Non-Af Amer) BUN/Creatinine Ratio Glucose POC Glucose 86 99 Calcium Iron 25 L TIBC 222 L Transferrin 180 L Transferrin % Sat 10 L Ferritin 143.4 Total Bilirubin AST ALT Alkaline Phosphatase Total Protein Albumin Globulin Albumin/Globulin Ratio Lipase Stool Occult Bld Scrn 03/18/20 03/19/20 03/19/20 20:25 06:03 06:03 WBC 5.48 RBC 3.91 L Hgb 10.8 L Hct 31.5 L MCV 80.6 MCH 27.6 MCHC 34.3 RDW Std Deviation 37.8 RDW Coeff of Samantha 12.9 Plt Count 185 MPV 9.5 Immature Gran % (Auto) 0.2 Neut % (Auto) 59.2 Lymph % (Auto) 26.1 [place] % (Auto) 6.8 Eos % (Auto) 7.3 Baso % (Auto) 0.4 Neut # (Auto) 3.25 Lymph # (Auto) 1.43 [place] # (Auto) 0.37 Eos # (Auto) 0.40 Baso # (Auto) 0.02 Immature Gran # (Auto) 0.01 Sodium 143 Potassium 3.5 Chloride 111 H Carbon Dioxide 26 Anion Gap 6.0 BUN 9 D Creatinine 0.75 Est Cr Clr Drug Dosing 91.3 Est GFR ( Amer) 104.7 Est GFR (Non-Af Amer) 90.4 BUN/Creatinine Ratio 11.3 Glucose 87 POC Glucose 114 H Calcium 8.9 Iron TIBC Transferrin Transferrin % Sat Ferritin Total Bilirubin 0.4 AST 19 ALT 22 Alkaline Phosphatase 121 H Total Protein 6.0 L Albumin 2.4 L Globulin 3.6 Albumin/Globulin Ratio 0.7 L Lipase 182 Stool Occult Bld Scrn 03/19/20 03/19/20 08:09 Unknown WBC RBC Hgb Hct MCV MCH MCHC RDW Std Deviation RDW Coeff of Samantha Plt Count MPV Immature Gran % (Auto) Neut % (Auto) Lymph % (Auto) [place] % (Auto) Eos % (Auto) Baso % (Auto) Neut # (Auto) Lymph # (Auto) [place] # (Auto) Eos # (Auto) Baso # (Auto) Immature Gran # (Auto) Sodium Potassium Chloride Carbon Dioxide Anion Gap BUN Creatinine Est Cr Clr Drug Dosing Est GFR ( Amer) Est GFR (Non-Af Amer) BUN/Creatinine Ratio Glucose POC Glucose Pending Calcium Iron TIBC Transferrin Transferrin % Sat Ferritin Total Bilirubin AST ALT Alkaline Phosphatase Total Protein Albumin Globulin Albumin/Globulin Ratio Lipase Stool Occult Bld Scrn Negative (1) Pancreatitis Acute pancreatitis complication: unspecified Chronicity: acute Pancreatitis type: other Qualified Code(s): K85.80 - Other acute pancreatitis without necrosis or infection
[2020-03-19] MEDS: INSULIN REGULAR PUMP SCH ×4 (08:40→21:15)
[2020-03-19] MEDS: PANTOprazole 40 MG TAB PO SCH ×2 (09:13→21:14)
[2020-03-19] MEDS: FLUTICASONE/VILANTEROL 200/25MCG 14 PUFFS/INHALER INH SCH (09:14)
[2020-03-19] MEDS ORDERED: FUROSEMIDE 20 MG in SYRINGE 0 ML IV ONE (16:45)
--- NOTE | 2020-03-19 16:53 | Hospitalist Progress Note ---
Date of Service March 19, 2020 Assessment & Plan (1) Pancreatitis: Mrs. Saldana is a 54 year old female with a history Type 2 Diabetes Mellitus (on Omnipod insulin pump), Hypertension, Dyslipidemia, GERD, Schatzki's Ring, Irritable Bowel Syndrome, DUYEN on CPAP, and Asthma who presents w/ Acute Pancreatitis. She p/w mid epigastric and LUQ pain x 4 days with associated nausea, decreased appetite, and 1 episode of vomiting. She describes the pain as a pressure and a burning sensation. The pain is worsened by being upright, and it's worse after eating. No fever or chills. She does not appear to be dehydrated. CT Scan of the Abdomen showed mild to moderate stranding and fluid centered on the pancreatic tail consistent with acute pancreatitis, no evidence of biliary or pancreatic duct obstruction or dilation. Lipase level is 339 U/L. LFT's are unremarkable. WBC# is elevated. Pain is much improved overall, still some mild pain, no longer taking pain meds and is tolerating full liquids diet. Feels bloated but moving bowels and passing flatus With CACERES as below likely from volume overload CBC, CMP, all acceptable, lipase remains normal TG normal, calcium normal, no EtOH use, no gallstones. Seems to be most likely from Victoza, but statin also placed on hold for now Also with microcytic anemia, question if has peptic ulcer disease. Hemoccult is negative -adv diet to low fiber for this evening -dc IVFs and give lasix 20mg IV x 1 now for volume overload -Continue Toradol as needed and IV dilaudid low dose 0.25mg as needed for severe pain -hold statin, Victoza but can likely restart statin on discharge -consult GI appreciated- I question if needs EUS/EGD perhaps as outpt to take a look at the pancreas as well as upper GI tract given microcytic anemia (2) Dyspnea on effort: Started in the last 24 hours is +9L I/O for her stay, likely volume overload Pancreatitis is resolving -dc IVFs and give IV lasix Weight is up 7 kg in the last 2 days Check CXR (3) Microcytic anemia: Hemoglobin 10.7, MCV low at 81 Iron studies indicate iron deficiency transferrin saturation 10% Discussed with GI about possibility of outpatient EGD Hemoccult stool is negative but still should likely have EGD and perhaps colonoscopy -GI checked celiac panel today-pending (4) Type 2 diabetes mellitus with insulin therapy: -- Stop Victoza as pancreatitis and GI symptoms are known side effects of this medication. -- Patient managing her own Omnipod Insulin Pump, monitor BSG's. -- Basal Rate at 0:00 1.4, at 0800 1.15, and at 1730 1.45. -- Bolus Insulin to carb ratio 8, correction factor 22. -- Patient typically takes a total daily dose 53 units. Blood sugars well controlled as she is eating minimally (5) Hyperlipidemia: lipids good hold statin for pancreatitis (6) GERD (gastroesophageal reflux disease): -- Continue ppi (7) Hypertension: BPs controlled not on meds at home (8) Obesity: BMI 40.4 encouraged weight loss, low carb diet referred to Dr. Taylor Fowler at [facility] for weight management (9) Fatty liver: noted on CT and US advised weight loss (10) Hepatosplenomegaly: likely secondary to fatty liver advised weight loss (11) DUYEN on CPAP: continue home CPAP (12) Asthma: no acute issues inhalers prn (13) DVT prophylaxis: Lovenox SQ Dispo-continued stay Admission and Anticipated Discharge Date Admission Date: March 16, 2020 Subjective Pt feels like she is having trouble taking a deep breath and tried walking the halls and felt CACERES. She is +9L for the stay. Her epigastric pain is much improved but she has a sensation of bloating there like "my lungs are getting squished." Denies chest pains. Is passing flatus and had a BM today. Is tolerating full liquids diet and has a low fat diet ordered for tonight for dinner. She states that she has decided she is going to change her whole lifestyle ar ound and is considering a vegan diet when she leaves the hospital to work on weight loss and rid herself of DM. Review of Systems Review of Systems: All systems reviewed & are unremarkable except as noted in HPI & below Physical Exam Constitutional: WD/WN, vitals as above + obese Eyes: + anicteric sclerae Neck: trachea midline, no thyromegaly Respiratory: normal respiratory effort, lungs clear to auscultation Cardiovascular: RRR, no murmur, no edema Chest (Breasts): Chest: normal inspection of chest Gastrointestinal (Abdomen): Inspection/Auscultation: abdomen normal to inspection, + abdomen distended (mild) and normal bowel sounds Percussion/Palpation: + abdomen tender (in epigastric region w/o guarding or rebound tenderness) and abdomen soft Musculoskeletal: Extremities: extremities normal to inspection; no cyanosis and no clubbing Skin: no rashes, warm and dry Neurologic: moves all extremities and awake; no focal motor deficits Psychiatric: A+Ox3, euthymic affect Lymphatic: no lymphedema Results & Data Results & Data ([facility]) Vital Signs (Past 12 Hours) Vital Signs Temp Pulse Resp BP BP Pulse Ox 03/19/20 15:39 37.1 C 51 L 16 135/80 94 03/19/20 07:11 36.4 C L 59 L 16 124/81 96 Laboratory Results 03/19/20 03/19/20 03/19/20 Range/Units Unknown 16:06 16:06 WBC (4.8-10.8) K/uL RBC (4.2-5.4) M/uL Hgb (12.0-16.0) g/dL Hct (37-47) % MCV (80-100) fL MCH (25-34) pg MCHC (32-36) g/dL RDW Std Deviation (36.4-46.3) fL RDW Coeff of Samantha (11.5-14.5) % Plt Count (130-400) K/uL MPV (7.4-10.4) fL Immature Gran % (Auto) % Neut % (Auto) % Lymph % (Auto) % [place] % (Auto) % Eos % (Auto) % Baso % (Auto) % Neut # (Auto) (1.4-6.5) K/uL Lymph # (Auto) (1.2-3.4) K/uL [place] # (Auto) (0.11-0.59) K/uL Eos # (Auto) (0-0.5) K/uL Baso # (Auto) (0-0.2) K/uL Immature Gran # (Auto) (0.00-0.02) K/uL Sodium (136-145) mmol/L Potassium (3.5-5.1) mmol/L Chloride (98-107) mmol/L Carbon Dioxide (21-32) mmol/L Anion Gap (3-11) BUN (7-18) mg/dl Creatinine (0.6-1.2) mg/dl Est Cr Clr Drug Dosing ml/min Est GFR ( Amer) Est GFR (Non-Af Amer) BUN/Creatinine Ratio (10-20) Glucose (70-99) mg/dl POC Glucose (70-99) mg/dl Calcium (8.5-10.1) mg/dl Total Bilirubin (0.2-1) mg/dl AST (15-37) U/L ALT (12-78) U/L Alkaline Phosphatase (45-117) U/L Total Protein (6.4-8.2) gm/dl Albumin (3.4-5.0) gm/dl Globulin (2.5-4.0) gm/dl Albumin/Globulin Ratio (0.9-2) Lipase (73-393) U/L Stool Occult Bld Scrn Negative (Negative) IgA 88.4 (70-400) mg/dl Tiss Transglutamin IgA Pending 03/19/20 03/19/20 03/19/20 Range/Units 11:59 08:09 06:03 WBC (4.8-10.8) K/uL RBC (4.2-5.4) M/uL Hgb (12.0-16.0) g/dL Hct (37-47) % MCV (80-100) fL MCH (25-34) pg MCHC (32-36) g/dL RDW Std Deviation (36.4-46.3) fL RDW Coeff of Samantha (11.5-14.5) % Plt Count (130-400) K/uL MPV (7.4-10.4) fL Immature Gran % (Auto) % Neut % (Auto) % Lymph % (Auto) % [place] % (Auto) % Eos % (Auto) % Baso % (Auto) % Neut # (Auto) (1.4-6.5) K/uL Lymph # (Auto) (1.2-3.4) K/uL [place] # (Auto) (0.11-0.59) K/uL Eos # (Auto) (0-0.5) K/uL Baso # (Auto) (0-0.2) K/uL Immature Gran # (Auto) (0.00-0.02) K/uL Sodium 143 (136-145) mmol/L Potassium 3.5 (3.5-5.1) mmol/L Chloride 111 H (98-107) mmol/L Carbon Dioxide 26 (21-32) mmol/L Anion Gap 6.0 (3-11) BUN 9 D (7-18) mg/dl Creatinine 0.75 (0.6-1.2) mg/dl Est Cr Clr Drug Dosing 91.3 ml/min Est GFR ( Amer) 104.7 Est GFR (Non-Af Amer) 90.4 BUN/Creatinine Ratio 11.3 (10-20) Glucose 87 (70-99) mg/dl POC Glucose 88 86 (70-99) mg/dl Calcium 8.9 (8.5-10.1) mg/dl Total Bilirubin 0.4 (0.2-1) mg/dl AST 19 (15-37) U/L ALT 22 (12-78) U/L Alkaline Phosphatase 121 H (45-117) U/L Total Protein 6.0 L (6.4-8.2) gm/dl Albumin 2.4 L (3.4-5.0) gm/dl Globulin 3.6 (2.5-4.0) gm/dl Albumin/Globulin Ratio 0.7 L (0.9-2) Lipase 182 (73-393) U/L Stool Occult Bld Scrn (Negative) IgA (70-400) mg/dl Tiss Transglutamin IgA 03/19/20 03/18/20 03/18/20 Range/Units 06:03 20:25 17:11 WBC 5.48 (4.8-10.8) K/uL RBC 3.91 L (4.2-5.4) M/uL Hgb 10.8 L (12.0-16.0) g/dL Hct 31.5 L (37-47) % MCV 80.6 (80-100) fL MCH 27.6 (25-34) pg MCHC 34.3 (32-36) g/dL RDW Std Deviation 37.8 (36.4-46.3) fL RDW Coeff of Samantha 12.9 (11.5-14.5) % Plt Count 185 (130-400) K/uL MPV 9.5 (7.4-10.4) fL Immature Gran % (Auto) 0.2 % Neut % (Auto) 59.2 % Lymph % (Auto) 26.1 % [place] % (Auto) 6.8 % Eos % (Auto) 7.3 % Baso % (Auto) 0.4 % Neut # (Auto) 3.25 (1.4-6.5) K/uL Lymph # (Auto) 1.43 (1.2-3.4) K/uL [place] # (Auto) 0.37 (0.11-0.59) K/uL Eos # (Auto) 0.40 (0-0.5) K/uL Baso # (Auto) 0.02 (0-0.2) K/uL Immature Gran # (Auto) 0.01 (0.00-0.02) K/uL Sodium (136-145) mmol/L Potassium (3.5-5.1) mmol/L Chloride (98-107) mmol/L Carbon Dioxide (21-32) mmol/L Anion Gap (3-11) BUN (7-18) mg/dl Creatinine (0.6-1.2) mg/dl Est Cr Clr Drug Dosing ml/min Est GFR ( Amer) Est GFR (Non-Af Amer) BUN/Creatinine Ratio (10-20) Glucose (70-99) mg/dl POC Glucose 114 H 99 (70-99) mg/dl Calcium (8.5-10.1) mg/dl Total Bilirubin (0.2-1) mg/dl AST (15-37) U/L ALT (12-78) U/L Alkaline Phosphatase (45-117) U/L Total Protein (6.4-8.2) gm/dl Albumin (3.4-5.0) gm/dl Globulin (2.5-4.0) gm/dl Albumin/Globulin Ratio (0.9-2) Lipase (73-393) U/L Stool Occult Bld Scrn (Negative) IgA (70-400) mg/dl Tiss Transglutamin IgA PG Care Time/CCT Total # of Minutes Spent Total Time Spent with Patient: Total time spent is greater than 50% in coordination of care (as documented) at patient's floor/unit and/or counseling patient: Coding Level of Care Code 67838 Subseq Hosp Care Lvl 3 Diagnoses Pancreatitis K85.80 Acute pancreatitis complication: unspecified Chronicity: acute Pancreatitis type: other Dyspnea on effort R06.00 Microcytic anemia D50.9 Type 2 diabetes mellitus with insulin therapy E11.9; Z79.4 Hyperlipidemia E78.5 GERD (gastroesophageal reflux disease) K21.9 Hypertension I10 Obesity E66.9 Fatty liver K76.0 Hepatosplenomegaly R16.2 DUYEN on CPAP G47.33; Z99.89 Asthma J45.909 DVT prophylaxis Z29.9 (1) Pancreatitis Acute pancreatitis complication: unspecified Chronicity: acute Pancreatitis type: other Qualified Code(s): K85.80 - Other acute pancreatitis without necrosis or infection
--- NOTE | 2020-03-19 17:04 | Progress Notes ---
DATE: 03/19/2020 ADDENDUM Addendum to the progress note on the patient by Becky Horowitz. The patient states that she is still somewhat tired and having some back pain, but is improving and is tolerating a full liquid diet and will be advanced to a low fat diet for dinner tonight. She remains afebrile. Her iron level is slightly low. I did review my office notes and she had a colonoscopy on 05/08/2017 just showed hemorrhoids and an EGD on 06/29/2014 with just finding of some benign gastric polyps, so I do not know if it is important to repeat these, but we may consider an upper endoscopy as an outpatient. In the meantime, we will check for celiac with a tissue transglutaminase and IgA level. Dr. Juan M Shepherd is covering for the weekend.
--- NOTE | 2020-03-19 17:59 | XRay Report ---
XR chest 1V portable CLINICAL HISTORY: SOB, pancreatitis COMPARISON STUDY: Chest radiograph January 03, 2019. FINDINGS: There is no pneumothorax. Small bilateral pleural effusions have developed. Cardiac size is at the upper limits of normal. Interstitial thickening is noted. IMPRESSION: Interval development of mild interstitial pulmonary edema, small bilateral pleural effus ions and bibasilar opacities. ACT 112: Negative or not required by law. Electronically signed by: Magdi Redding M.D. 03/19/2020 5:58 PM
[2020-03-19] MEDS: ALUMINUM/MAGNESIUM/SIMETH (MAALOX MAX) 30 ML UDC PO PRN (18:20)
[2020-03-19] MEDS: CITALOPRAM 20 MG TAB PO SCH (21:13)
[2020-03-19] MEDS: MONTELUKAST SODIUM 10 MG TABLET PO SCH (21:14)
[2020-03-19] MEDS: MELATONIN 3 MG TAB PO SCH (21:14)
[2020-03-19] MEDS: CETIRIZINE HCL 10 MG TABLET PO SCH (21:14)
[2020-03-20] MEDS: KETOROLAC 30 MG/ML VIAL IV PRN (05:25)
[2020-03-20] MEDS: ENOXAPARIN INJ 40 MG/0.4 ML SYR SQ SCH (05:30)
[2020-03-20] MEDS: INSULIN REGULAR PUMP SCH ×2 (09:05→13:39)
[2020-03-20] MEDS: FLUTICASONE/VILANTEROL 200/25MCG 14 PUFFS/INHALER INH SCH (09:06)
[2020-03-20] MEDS: PANTOprazole 40 MG TAB PO SCH (09:06)
[2020-03-20] MEDS: ACETAMINOPHEN 325 MG TAB PO PRN (09:14)
[2020-03-20] MEDS ORDERED: FUROSEMIDE 20 MG in SYRINGE 0 ML IV ONE (10:45)
[2020-03-20 11:29] LABS: Albumin Level 2.8 gm/dl (3.4-5.0); BUN Creatinine Ratio 12.3 (10-20); Calcium 8.8 mg/dl (8.5-10.1); Creatinine Clr Calc Pharmacy 85.9 ml/min; Est GFR (African American) 92.7; Est GFR (Non-African American) 79.9; Potassium 3.5 mmol/L (3.5-5.1)
[2020-03-20 11:34] LABS: Albumin Globulin Ratio 0.7 (0.9-2); Bilirubin,Total 0.5 mg/dl (0.2-1); Total Protein 6.8 gm/dl (6.4-8.2)
[2020-03-20] MEDS ORDERED: MAGNESIUM OXIDE 400 MG TAB PO SCH (12:45)
--- NOTE | 2020-03-20 12:56 | Discharge Summary ---
Date of Service March 20, 2020 Admission HPI Per Admitting Provider Mrs. Saldana is a 54 year old female with a history Type 2 Diabetes Mellitus (on Omnipod insulin pump), Hypertension, Dyslipidemia, GERD, Schatzki's Ring, Irritable Bowel Syndrome, and Asthma who presents to [facility] ER today complaining midepigastric and left upper quadrant pain x 4 days with associated nausea, decreased appetite, and 1 episode of vomiting earlier today. She describes the midepigastric and LUQ pain as a pressure and a burning sensation. The pain is worsened by being upright, and it's worse after eating. Patient denies any fevers, chills, diarrhea, or change in bowel habits recently. She denies any melena, hematochezia, or hematemesis. She denies any abdominal cramping. She denies any urinary symptoms -- specifically denies any urinary urgency, frequency, or dysuria. She denies any flank pain. Patient rarely drinks alcoholic beverages and has not had any recent alcohol intake. Her most recent lipid panel 11/11/19 showed triglycerides of 147 mg/dL. She denies any history of PUD or prior GI bleeding. Principal Diagnosis Acute pancreatitis Discharge Exam Constitutional WD/WN, vitals as above + obese Eyes + anicteric sclerae Neck trachea midline, no thyromegaly Respiratory normal respiratory effort, lungs clear to auscultation Cardiovascular RRR, no murmur, no edema Chest (Breasts) Chest: normal inspection of chest Gastrointestinal (Abdomen) normal bowel sounds, soft, nontender, no hepatosplenomegaly Musculoskeletal Extremities: extremities normal to inspection; no cyanosis and no clubbing Skin no rashes, warm and dry Neurologic moves all extremities and awake; no focal motor deficits Psychiatric A+Ox3, euthymic affect Lymphatic no lymphedema Discharge Data Allergies Allergy/AdvReac Type Severity Reaction Status Date / Time morphine Allergy Unknown VOMITING, Verified 03/16/20 07:33 NAUSEA pseudoephedrine Allergy Unknown ` Verified 03/16/20 07:33 Sulfa (Sulfonamide Allergy Unknown Unknown Verified 03/16/20 07:33 Antibiotics) adhesive tape Allergy Unknown Verified 03/16/20 07:33 simvastatin AdvReac Intermediate MUSCLE PAIN Verified 03/16/20 07:33 Consultations 03/16/20 10:07 ED Decision to Admit Stat 03/17/20 15:17 Consult Gastroenterology Routine Ordered Studies 03/16/20 07:03 CT abd pelvis IV con only Stat 03/16/20 14:31 US liver Urgent CXR Hospital Course (1) Pancreatitis: Mrs. Saldana is a 54 year old female with a history Type 2 Diabetes Mellitus (on Omnipod insulin pump), Hypertension, Dyslipidemia, GERD, Schatzki's Ring, Irritable Bowel Syndrome, DUYEN on CPAP, and Asthma who presents w/ Acute Pancreatitis. She p/w mid epigastric and LUQ pain x 4 days with associated nausea, decreased appetite, and 1 episode of vomiting. She describes the pain as a pressure and a burning sensation. The pain is worsened by being upright, and it's worse after eating. No fever or chills. She does not appear to be dehydrated. CT Scan of the Abdomen showed mild to moderate stranding and fluid centered on the pancreatic tail consistent with acute pancreatitis, no evidence of biliary or pancreatic duct obstruction or dilation. Lipase level is 339 U/L. LFT's are unremarkable. WBC# is elevated. Pain is much improved overall,pain now completely resolved and is tolerating low fat diet. Moving bowels, no nausea With CACERES as below likely from volume overload--> now improved with IV lasix x 2 doses CBC, CMP, all acceptable, lipase remains normal TG normal, calcium normal, no EtOH use, no gallstones. Seems to be most likely from Victoza, but statin was also placed on hold-ok to restart statin on discharge Also with microcytic anemia, question if has peptic ulcer disease. Hemoccult is negative -dc to home with low fat diet -dc Victoza -consult GI appreciated- I question if needs EUS/EGD perhaps as outpt to take a look at the pancreas as well as upper GI tract given microcytic anemia-f/u as outpt with GI (2) Dyspnea on effort: developed on hospital day 3 after copious IVFs -CXR showed pulm edema and pleural effusions is +9L I/O for her stay Pancreatitis is resolved -dcd IVFs and give IV lasix x 2 No longer feels CACERES dc to home on 2 more days of po lasix along with KCl (3) Microcytic anemia: Hemoglobin 10.7, MCV low at 81 Iron studies indicate iron deficiency transferrin saturation 10% Discussed with GI about possibility of outpatient EGD Hemoccult stool is negative but still should likely have EGD and perhaps colonoscopy -GI checked celiac panel -pending at time of dc and can f/u on by PCP or GI as outpt (4) Type 2 diabetes mellitus with insulin therapy: -- Stop Victoza as pancreatitis and GI symptoms are known side effects of this medication. -- Patient managing her own Omnipod Insulin Pump, monitor BSG's. -- Basal Rate at 0:00 1.4, at 0800 1.15, and at 1730 1.45. -- Bolus Insulin to carb ratio 8, correction factor 22. -- Patient typically takes a total daily dose 53 units. Blood sugars well controlled (5) Hyperlipidemia: lipids good hold statin for pancreatitis-can restart on dc (6) GERD (gastroesophageal reflux disease): -- Continue ppi dc home papaya as unsure if contributes to pancreatitis? (7) Hypertension: BPs controlled not on meds at home (8) Obesity: BMI 40.4 encouraged weight loss, low carb diet referred to Dr. Taylor Fowler at [facility] for weight management (9) Fatty liver: noted on CT and US advised weight loss (10) Hepatosplenomegaly: likely secondary to fatty liver advised weight loss (11) DUYEN on CPAP: continue home CPAP (12) Asthma: no acute issues inhalers from home (13) Hypervolemia: as above diuresed home po lasix x 2 days (14) DVT prophylaxis: Lovenox SQ Dispo-stable for dc to home Total Time Total Time Spent Total Time Spent (In Minutes): 35 min Total Time Includes: Examination of the Patient, Discharge Planning and Medication Reconciliation Discharge Plan Discharge Items Patient Disposition: Home - Self-Care Reason For Visit: PANCREATITIS Discharge Diagnosis: Acute pancreatitis Condition on Discharge: Good Activity: As commented below Lifting: Gradually increase as tolerated Bathing: No limitations Exercise/Sports: Gradually increase as tolerated Non-emergency contact: Primary Care Provider and Head Of [employer] Call non-emergency contact if: you have any medication questions, your symptoms worsen, your pain is not controlled, your pain is worsening, your pain is concerning for you and you have a fever Follow-up/Referrals: Gera Boothe [Physician] - (Dr. Boothe's office should be contacting you to schedule a follow up appointment.) Trung Mayberry MD [Primary Care Provider] - (Please follow up within 1-2 weeks.) Taylor Fowler, [Nurse Practitioner] - (Please schedule a new patient consultation for weight management.) Diet: Carb Consistent or DM2 and Low Fat Addtl Attending Provider Instructions: You were admitted for acute pancreatitis and were treated with bowel rest, IV fluids and pain medications. It is possible this was caused by a side effect of Victoza and you should stop that medication moving forward. Please continue on a low fat diet to prevent recurrence of pancreatitis. Follow up with Dr. Boothe to see about a possible EGD as an outpatient. You were found to be anemic. Celiac disease blood work was still pending at time of discharge-your PCP or Dr. Boothe can follow up on these results. You had some excessive fluid retained from all the IV fluids given for your pancreatitis. Please continue taking the lasix (water pill) along with the pota ssium pill just for 2 more days. Follow up with your PCP within 1-2 weeks. Pending Studies at Discharge: Yes Stand-Alone Forms: My [facility] Medications and DC Order Prescriptions: New furosemide [Lasix] 20 mg tablet 20 mg PO DAILY Qty: 2 RF: 0 potassium chloride 10 mEq capsule, extended release 10 meq PO DAILY Qty: 2 RF: 0 Continued (DME) pen needle, diabetic [BD Lara 2nd Gen Pen Needle] 32 gauge x 5/32" needle See Rx Instructions .ROUTE .MEDSUPPLY Qty: 100 RF: 3 (DME) Accu-Chek Guide test strips Strip See Dose Instructions .ROUTE .MEDSUPPLY Qty: 400 RF: 3 cyanocobalamin (vitamin B-12) 1,000 mcg capsule 0 mcg PO QAM RF: 0 Novolin R Regular U-100 Insuln 100 unit/mL solution 65 units SQ .COMPLEX 90 Days Qty: 6 RF: 3 dicyclomine 20 mg tablet 20 mg PO Q6H PRN (Reason: .) RF: 0 clobetasol 0.05 % cream 1 appln topical BID PRN (Reason: .) RF: 0 rosuvastatin 40 mg tablet 40 mg PO HS Qty: 90 RF: 0 magnesium oxide 400 mg (241.3 mg magnesium) tablet 400 mg PO BID RF: 0 omeprazole 20 mg tablet,delayed release (DR/EC) 20 mg PO BID RF: 0 albuterol sulfate [ProAir HFA] 90 mcg/actuation HFA aerosol inhaler 2 puffs INH Q6H PRN (Reason: Shortness Of Breath Or Wheezing) RF: 0 montelukast 10 mg tablet 10 mg PO HS RF: 0 triamcinolone acetonide 0.5 % cream 1 appln topical 2XWK PRN (Reason: breakouts) RF: 0 valacyclovir 1 gram tablet 1,000 mg PO DAILY PRN (Reason: Cold Sores) RF: 0 cetirizine 10 mg tablet 10 mg PO HS RF: 0 (DME) lancets [Accu-Chek Fastclix Lancet Drum] misc See Dose Instructions .ROUTE .MEDSUPPLY Qty: 50 RF: 0 (DME) Ketostix Strip See Dose Instructions .ROUTE .MEDSUPPLY Qty: 25 RF: 0 cholecalciferol (vitamin D3) [Vitamin D3] 1,000 unit Capsule 1,000 unit PO QAM RF: 0 citalopram 40 mg tablet 60 mg PO HS RF: 0 fluticasone propion-salmeterol [Advair Diskus] 500-50 mcg/dose blister with device 1 inh INHALATION QAM RF: 0 melatonin 5 mg Tablet 5 mg PO HS RF: 0 Discontinued Victoza 3-Mitchell 0.6 mg/0.1 mL (18 mg/3 mL) pen injector See Rx Instructions SQ .COMPLEX Qty: 9 RF: 3 carica papaya [Papaya Enzyme] Tablet 4 tab PO PC PRN (Reason: Heartburn) RF: 0 Discharge Orders: Discharge Order (Routine); Ordered 03/20/20 Ordered By: Maria Del Carmen Whittington Admission Data Admit Date/Time: 03/16/20 11:24 Attending Provider: Maria Del Carmen Whittington Admit Provider: Jocelyne Eid Primary Care Provider: Trung Mayberry Other Providers: Maria Del Carmen Whittington ; Gera Boothe Coding Level of Care Code D/C Day Management >30 mins Diagnoses Pancreatitis K85.80 Acute pancreatitis complication: unspecified Chronicity: acute Pancreatitis type: other Dyspnea on effort R06.00 Microcytic anemia D50.9 Type 2 diabetes mellitus with insulin therapy E11.9; Z79.4 Hyperlipidemia E78.5 GERD (gastroesophageal reflux disease) K21.9 Hypertension I10 Obesity E66.9 Fatty liver K76.0 Hepatosplenomegaly R16.2 DUYEN on CPAP G47.33; Z99.89 Asthma J45.909 Hypervolemia E87.70 DVT prophylaxis Z29.9
== END 2020-03-20 14:21 | disposition home or self-care (01) | DRG 439 ==
LOC: ED 06:38 → SUATTDRO 11:24 → 3N 11:24

== ENCOUNTER 2021-01-22 10:41 | Inpatient (IN) ==
[2021-01-22] MEDS ORDERED: SODIUM CHLORIDE 0.9% 1000ML 1,000 ML IV STA (10:54)
[2021-01-22] MEDS ORDERED: fentaNYL citrate 100 MCG/2 ML VIAL IV STA ×2 (11:17→13:07)
[2021-01-22] MEDS ORDERED: ONDANSETRON INJ 2 MG/ML 2 ML VIAL IV STA (11:17)
[2021-01-22 11:23] LABS: Basophils # (auto) 0.01 K/uL (0-0.2); Basophils % (auto) 0.1 %; Eosinophils # (auto) 0.15 K/uL (0-0.5); Eosinophils % (auto) 1.5 %; Hematocrit (blood only) 37.7 % (37-47); Hemoglobin 12.8 g/dL (12.0-16.0); Immature Granulocytes # (auto) 0.02 K/uL (0.00-0.02); Immature Granulocytes % (auto) 0.2 %; Lymphocytes # (auto) 0.76 K/uL (1.2-3.4); Lymphocytes % (auto) 7.7 %; Mean Corpuscular Volume 82.5 fL (80-100); Monocytes # (auto) 0.67 K/uL (0.11-0.59); Monocytes % (auto) 6.7 %; Neutrophils # (auto) 8.32 K/uL (1.4-6.5); Neutrophils % (auto) 83.8 %; Platelet Count 228 K/uL (130-400); RDW Coefficient of Variation 12.9 % (11.5-14.5); RDW Standard Deviation 38.7 fL (36.4-46.3); Red Blood Count 4.57 M/uL (4.2-5.4); White Blood Count 9.93 K/uL (4.8-10.8)
[2021-01-22 11:46] LABS: Alanine Aminotransferase 14 (12-78); Albumin Level 3.3 gm/dl (3.4-5.0); Aspartate Aminotransferase 5 U/L (15-37); BUN Creatinine Ratio 7.6 (10-20); Blood Urea Nitrogen 8 mg/dl (7-18); Calcium 9.8 mg/dl (8.5-10.1); Carbon Dioxide 29 mmol/L (21-32); Chloride 100 mmol/L (98-107); Creatinine Clr Calc Pharmacy 64.1 ml/min; Est GFR (African American) 70.9 ml/min; Est GFR (Non-African American) 61.1 ml/min; Glucose 156 mg/dl (70-99); Lipase 199 U/L (73-393); Potassium 3.9 mmol/L (3.5-5.1); Sodium 133 mmol/L (136-145)
--- NOTE | 2021-01-22 11:47 | Emergency Department Note ---
Impression & Plan Acute pancreatitis, Type 2 diabetes mellitus with insulin therapy ED Provider Note Provider: Gavin Gould MD DATE OF SERVICE: 01/22/2021 CHIEF COMPLAINT: Epigastric pain, pancreatitis HISTORY OF PRESENT ILLNESS: Patient is a 55-year-old female history of pancreatitis, diabetes, GERD, and hypertension presenting here today reporting 6 days of pancreatitis symptoms. Seen here Sunday night and had CT scan consistent with that with minimal lipase elevation. Minimal nausea and vomiting. States the home oxycodone is not helping much with her pain. States she has become somewhat constipated and has not had a bowel movement in 6 days. Denies fever chills or respiratory symptoms. Denies significant chest pain. Reports epigastric pain rating to the back. Took oxycodone at 9 AM and this has not really helped the pain much. Has not had an episode of pancreatitis that has lasted this long before. REVIEW OF SYSTEMS: A total of 10 review of systems was obtained and negative except as stated above in the HPI. PAST MEDICAL HISTORY: As noted above, no history of abdominal surgeries reported. MEDICATIONS: Reviewed home medications SOCIAL HISTORY: Lives at home, rare alcohol PHYSICAL EXAM: GENERAL: alert and oriented in no acute distress on stretcher Head: normocephalic and atraumatic EYES: No injection, discharge or icterus. NECK: Trachea midline. LUNGS: Airway patent. No retractions. Breath sounds clear HEART: Regular rate and rhythm. No chest wall tenderness ABDOMEN: Soft with some right upper quadrant epigastric tenderness. In place insulin pump/sensor. SKIN: Acyanotic, warm, dry, without rashes EXTREMITIES: Without swelling, tenderness or deformity NEUROLOGICAL: No focal deficits. No aphasia. No facial droop or slurred speech. Ambulatory. EK bpm normal sinus rhythm. No PVC or PAC. No acute ST segment elevation or depression. QTC 449. CONTINUOUS CARDIAC MONITORING: was ordered and showed a heart rate of 70s-80s bpm in normal sinus rhythm Patient's laboratory studies and imaging reviewed. Differential includes Appendicitis, infections, diverticulitis, UTI, obstruction, mesenteric ischemia, aortic pathology, inflammatory bowel disease, renal colic, PUD, pancreatitis, biliary pathology, hernia, volvulus, constipation, as well as other pathologies. IMPRESSION/MEDICAL DECISION MAKING: Patient recent diagnosis of pancreatitis and seems consistent. Minimal nausea or vomiting. Given some additional pain control here. Some hydration given. Some upper abdominal tenderness and given persistence of pain with some slight worsening of pain today CT scan will be completed to exclude development of a cyst or other intra-abdominal pathology. Basic blood work obtained. Patient had improvement of pain with the fentanyl and nausea with Zofran. Blood work without significant leukocytosis today. No signs of renal dysfunction. No transaminitis today or lipase elevation. Troponin not elevated and EKG reassuring. Negative Covid here. CT does show worsening inflammation of the pancreas but no development of abscess or cyst. Patient has needed at times low but oxygen after resting and the pain medication here. Discussed with the patien t findings. Given her continued pain and worsening CT will have the hospitalist evaluate for further care here at the hospital. DIAGNOSIS: Pancreatitis, epigastric abdominal pain DISPOSITION: Hospitalist will evaluate Patient was agreeable with this plan. Past Med/Surg History Medical History Anxiety Asthma well controlled with daily medication. Bicuspid aortic valve follows with Dr Song, last saw Q6 months. Fatty liver GERD (gastroesophageal reflux disease) Hepatosplenomegaly pt unaware Hiatal hernia Hx of supraventricular tachycardia in her 20's -- treated with medication at that time. no problems since, no longer on medication. Hyperlipidemia Hypertension Microcytic anemia Mixed conductive and sensorineural hearing loss of left ear with restricted hearing of right ear DUYEN on CPAP Pancreatitis treated inpatient [facility] 02/2020 Sensorineural hearing loss of both ears Type 2 diabetes mellitus with insulin therapy insulin pump Surgical History History of colonoscopy History of ear surgery Left-2014 (attempted to restore hearing and reconstruction -- unsuccessful) History of elbow surgery Left History of esophagogastroduodenoscopy (EGD) History of laparoscopy ovarian cystectomy History of surgery cyst removal Family History Mother Asthma Grandfather Hypertension Heart disease Grandmother Hypertension Stroke Father Heart disease Cancer Aunt Cancer Other Environmental allergies Hearing loss No family history of bleeding disorder Social History Smoking Status: Never smoker Second Hand Exposure: No; Hx Alcohol Use: No Hx Substance Use: No Preferred Language: [place] Communication Ability: Effective Laundry Agent Required: No Beliefs That Will Affect Care: None marital status: Current Living Situation: Family current occupational status: employed 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 Feels Safe at Home: Yes Safety Concerns: Feels Safe At This Time Assistive Devices: CPAP, Glasses and Hearing Aid - Bilateral Allergies Allergies Allergy/AdvReac Type Severity Reaction Status Date / Time Sulfa (Sulfonamide Allergy Intermediate Hives Verified 01/22/21 12:04 Antibiotics) adhesive tape AdvReac Intermediate redness/irr Verified 01/22/21 12:04 itation morphine AdvReac Intermediate VOMITING, Verified 01/22/21 12:04 NAUSEA simvastatin AdvReac Intermediate MUSCLE PAIN Verified 01/22/21 12:04 pseudoephedrine AdvReac Mild Tachycardia Verified 01/22/21 12:04 Home Meds Home Medications Medication Instructions Recorded Confirmed albuterol sulfate 90 mcg/actuation 2 puffs INH Q6H PRN 10/24/18 01/22/21 aerosol inhaler (ProAir HFA) clobetasol 0.05 % topical cream 1 appln TOPICAL BID PRN gm 10/24/18 01/22/21 dicyclomine 20 mg tablet 20 mg PO Q6H PRN tab 10/24/18 01/22/21 magnesium oxide 400 mg (241.3 mg 400 mg PO BID tab 10/24/18 01/22/21 magnesium) tablet montelukast 10 mg tablet 10 mg PO HS tab 10/24/18 01/22/21 omeprazole 20 mg tablet,delayed 20 mg PO BID tab 10/24/18 01/22/21 release rosuvastatin 40 mg tablet (Crestor) 40 mg PO HS #90 tab 10/24/18 01/22/21 triamcinolone acetonide 0.5 % 1 appln TOPICAL 2XWK gm 10/24/18 01/22/21 topical cream valacyclovir 1 gram tablet 1,000 mg PO DAILY PRN tab 10/24/18 01/22/21 melatonin 5 mg tablet 5 mg PO HS 03/16/20 01/22/21 cyanocobalamin (vitamin B-12) 500 500 mcg PO QAM 04/05/20 01/22/21 mcg tablet (Vitamin B-12) cholecalciferol (vitamin D3) 25 1,000 unit PO QAM 04/19/20 01/22/21 mcg (1,000 unit) capsule (Vitamin D3) insulin regular human 100 unit/mL 50 unit SQ UD 04/19/20 01/22/21 injection solution (Novolin R Regular U-100 Insulin) fluticasone 500 mcg-salmeterol 50 1 inh INHALATION QAM PRN ea 07/26/20 01/22/21 mcg/dose blistr powdr for inhalation (Advair Diskus) citalopram 40 mg tablet (Celexa) 60 mg PO DAILY tab 10/14/20 01/22/21 zinc acetate 50 mg (zinc) capsule 50 mg PO DAILY 12/13/20 01/22/21 docusate sodium 50 mg capsule 0 mg PO ONCE PRN 01/22/21 01/22/21 (Stool Softener) Previous Rx's Medication Instructions Recorded fexofenadine 180 mg tablet 180 mg PO DAILY #30 tab 10/14/20 (Massiel Allergy) hydrocodone 5 mg-acetaminophen 325 1 - 2 tab PO Q6H PRN #14 tab 12/13/20 mg tablet promethazine 25 mg tablet 25 mg PO Q6H PRN #10 tab 12/13/20 ondansetron HCl 4 mg tablet 4 mg PO Q6H #10 tab 01/18/21 (Zofran) oxycodone 5 mg tablet 5 mg PO Q6H PRN #10 tab 01/18/21 Results & Data (ED) Vital Signs Vital Signs - 24 hr 01/22/21 10:45 01/22/21 11:18 01/22/21 11:20 Temperature 37.7 C H Temperature Source Oral Pulse Rate 98 H 79 79 Pulse Rate from SpO2 Sensor 80 80 Respiratory Rate 18 19 18 Blood Pressure 120/68 Blood Pressure Mean 85 Pulse Oximetry 91 92 91 Oxygen Delivery Method Room Air Nasal Cannula Nasal Cannula Oxygen Flow Rate 2 2 Sepsis Recent Fever Within 48 Hours No Sepsis New/Unexplained Change in Mental Status N/A Sepsis Action Taken by Nursing No Action Required 01/22/21 11:30 01/22/21 11:40 01/22/21 11:46 Temperature Temperature Source Pulse Rate 81 82 Pulse Rate from SpO2 Sensor 82 82 Respiratory Rate 17 19 Blood Pressure Blood Pressure Mean Pulse Oximetry 90 90 Oxygen Delivery Method Nasal Cannula Nasal Cannula Room Air Oxygen Flow Rate 2 2 Sepsis Recent Fever Within 48 Hours Sepsis New/Unexplained Change in Mental Status Sepsis Action Taken by Nursing 01/22/21 11:50 01/22/21 11:55 01/22/21 12:00 Temperature Temperature Source Pulse Rate 80 75 Pulse Rate from SpO2 Sensor 81 75 Respiratory Rate 19 14 Blood Pressure Blood Pressure Mean Pulse Oximetry 97 Oxygen Delivery Method Nasal Cannula Nasal Cannula Nasal Cannula Oxygen Flow Rate 2 2 2 Sepsis Recent Fever Within 48 Hours Sepsis New/Unexplained Change in Mental Status Sepsis Action Taken by Nursing 01/22/21 12:18 01/22/21 12:20 01/22/21 12:30 Temperature Temperature Source Pulse Rate 92 H 79 72 Pulse Rate from SpO2 Sensor 79 72 Respiratory Rate 26 H 15 15 Blood Pressure Blood Pressure Mean Pulse Oximetry 97 97 Oxygen Delivery Method Nasal Cannula Nasal Cannula Nasal Cannula Oxygen Flow Rate 2 2 2 Sepsis Recent Fever Within 48 Hours Sepsis New/Unexplained Change in Mental Status Sepsis Action Taken by Nursing 01/22/21 12:40 01/22/21 12:50 01/22/21 13:00 Temperature Temperature Source Pulse Rate 76 76 74 Pulse Rate from SpO2 Sensor 75 75 73 Respiratory Rate 17 17 17 Blood Pressure Blood Pressure Mean Pulse Oximetry 96 96 99 Oxygen Delivery Method Nasal Cannula Nasal Cannula Nasal Cannula Oxygen Flow Rate 2 2 2 Sepsis Recent Fever Within 48 Hours Sepsis New/Unexplained Change in Mental Status Sepsis Action Taken by Nursing 01/22/21 13:10 01/22/21 13:20 01/22/21 13:30 Temperature Temperature Source Pulse Rate 71 87 68 Pulse Rate from SpO2 Sensor 70 84 68 Respiratory Rate 16 15 17 Blood Pressure 158/82 H Blood Pressure Mean 107 Pulse Oximetry 98 98 97 Oxygen Delivery Method Nasal Cannula Nasal Cannula Nasal Cannula Oxygen Flow Rate 2 2 2 Sepsis Recent Fever Within 48 Hours Sepsis New/Unexplained Change in Mental Status Sepsis Action Taken by Nursing Laboratory Data Result diagrams: 01/22/21 11:14 01/22/21 11:14 Lab Results 01/22/21 01/22/21 01/22/21 Range/Units 11:14 11:14 11:14 WBC 9.93 (4.8-10.8) K/uL RBC 4.57 (4.2-5.4) M/uL Hgb 12.8 (12.0-16.0) g/dL Hct 37.7 (37-47) % MCV 82.5 (80-100) fL MCH 28.0 (25-34) pg MCHC 34.0 (32-36) g/dL RDW Std Deviation 38.7 (36.4-46.3) fL RDW Coeff of Samantha 12.9 (11.5-14.5) % Plt Count 228 (130-400) K/uL MPV 9.0 (7.4-10.4) fL Immature Gran % (Auto) 0.2 % Neut % (Auto) 83.8 % Lymph % (Auto) 7.7 % [place] % (Auto) 6.7 % Eos % (Auto) 1.5 % Baso % (Auto) 0.1 % Neut # (Auto) 8.32 H (1.4-6.5) K/uL Lymph # (Auto) 0.76 L (1.2-3.4) K/uL [place] # (Auto) 0.67 H (0.11-0.59) K/uL Eos # (Auto) 0.15 (0-0.5) K/uL Baso # (Auto) 0.01 (0-0.2) K/uL Immature Gran # (Auto) 0.02 (0.00-0.02) K/uL Sodium 133 L (136-145) mmol/L Potassium 3.9 (3.5-5.1) mmol/L Chloride 100 (98-107) mmol/L Carbon Dioxide 29 (21-32) mmol/L Anion Gap 4.0 (3-11) BUN 8 (7-18) mg/dl Creatinine 1.03 (0.6-1.2) mg/dl Est Cr Clr Drug Dosing 64.1 ml/min Est GFR ( Amer) 70.9 ml/min Est GFR (Non-Af Amer) 61.1 ml/min BUN/Creatinine Ratio 7.6 L (10-20) Glucose 156 H (70-99) mg/dl Calcium 9.8 (8.5-10.1) mg/dl Total Bilirubin 1.2 H (0.2-1) mg/dl AST 5 L (15-37) U/L ALT 14 (12-78) Alkaline Phosphatase 89 (45-117) U/L Lactate Dehydrogenase 176 (84-246) U/L Troponin I < 0.015 (0-0.045) ng/ml Total Protein 8.2 (6.4-8.2) gm/dl Albumin 3.3 L (3.4-5.0) gm/dl Globulin 4.9 H (2.5-4.0) gm/dl Albumin/Globulin Ratio 0.7 L (0.9-2) Triglycerides 125 (0-150) mg/dl Lipase 199 (73-393) U/L SARS-CoV-2, RNA, NAAT (NEGATIVE) 01/22/21 Range/Units 12:55 WBC (4.8-10.8) K/uL RBC (4.2-5.4) M/uL Hgb (12.0-16.0) g/dL Hct (37-47) % MCV (80-100) fL MCH (25-34) pg MCHC (32-36) g/dL RDW Std Deviation (36.4-46.3) fL RDW Coeff of Samantha (11.5-14.5) % Plt Count (130-400) K/uL MPV (7.4-10.4) fL Immature Gran % (Auto) % Neut % (Auto) % Lymph % (Auto) % [place] % (Auto) % Eos % (Auto) % Baso % (Auto) % Neut # (Auto) (1.4-6.5) K/uL Lymph # (Auto) (1.2-3.4) K/uL [place] # (Auto) (0.11-0.59) K/uL Eos # (Auto) (0-0.5) K/uL Baso # (Auto) (0-0.2) K/uL Immature Gran # (Auto) (0.00-0.02) K/uL Sodium (136-145) mmol/L Potassium (3.5-5.1) mmol/L Chloride (98-107) mmol/L Carbon Dioxide (21-32) mmol/L Anion Gap (3-11) BUN (7-18) mg/dl Creatinine (0.6-1.2) mg/dl Est Cr Clr Drug Dosing ml/min Est GFR ( Amer) ml/min Est GFR (Non-Af Amer) ml/min BUN/Creatinine Ratio (10-20) Glucose (70-99) mg/dl Calcium (8.5-10.1) mg/dl Total Bilirubin (0.2-1) mg/dl AST (15-37) U/L ALT (12-78) Alkaline Phosphatase (45-117) U/L Lactate Dehydrogenase (84-246) U/L Troponin I (0-0.045) ng/ml Total Protein (6.4-8.2) gm/dl Albumin (3.4-5.0) gm/dl Globulin (2.5-4.0) gm/dl Albumin/Globulin Ratio (0.9-2) Triglycerides (0-150) mg/dl Lipase (73-393) U/L SARS-CoV-2, RNA, NAAT NEGATIVE (NEGATIVE) Administered Medications Hydromorphone HCl (Hydromorphone Inj 0.5 Mg/0.5 Ml Syr) 0.5 mg IV Q4H PRN PRN Reason: Pain Stop: 02/05/21 15:22 Last Admin: 01/22/21 15:56 Dose: 0.5 mg Documented by: [id number] Sodium Chloride (Nss 1000ml) 1,000 mls @ 180 mls/hr IV .Q5H34M [facility] Stop: 02/21/21 13:44 Last Admin: 01/22/21 15:32 Dose: 180 mls/hr Documented by: [id number] Ondansetron HCl (Ondansetron Inj 2 Mg/Ml 2 Ml Vial) 4 mg IV Q6H PRN PRN Reason: Nausea Stop: 02/21/21 15:22 Last Admin: 01/22/21 15:57 Dose: 4 mg Documented by: [id number] Discontinued Medications Fentanyl Citrate (Fentanyl Citrate 100 Mcg/2 Ml Vial) 100 mcg IV NOW STA Stop: 01/22/21 11:18 Last Admin: 01/22/21 11:46 Dose: 100 mcg Documented by: [id number] Fentanyl Citrate (Fentanyl Citrate 100 Mcg/2 Ml Vial) 50 mcg IV NOW STA Stop: 01/22/21 13:08 Last Admin: 01/22/21 13:32 Dose: 50 mcg Documented by: [id number] Sodium Chloride (Nss 1000ml) 1,000 mls @ 999 mls/hr IV .Q1H1M STA Stop: 01/22/21 11:54 Last Infusion: 01/22/21 13:01 Dose: 0 mls/hr Documented by: [id number] Admin: 01/22/21 11:46 Dose: 999 mls/hr Documented by: [id number] Ioversol (Optiray 320 100ml) 94 ml IV ONCE ONE Stop: 01/22/21 12:14 Last Admin: 01/22/21 12:13 Dose: 94 ml Documented by: [id number] Ondansetron HCl (Ondansetron Inj 2 Mg/Ml 2 Ml Vial) 4 mg IV NOW STA Stop: 01/22/21 11:18 Last Admin: 01/22/21 11:46 Dose: 4 mg Documented by: [id number] Imaging Data Radiologist's Impression: Abdomen/Pelvis CT 01/22/21 11:17 CT OF THE ABDOMEN AND PELVIS WITH CONTRAST CLINICAL HISTORY: worsening pancreatitis symptoms/pain COMPARISON STUDY: CT of the abdomen and pelvis January 18, 2021. TECHNIQUE: Following IV administration of 94 mL of Optiray, axial images of the abdomen and pelvis were obtained from the lung bases to the proximal femurs. Images were reviewed in the axial, sagittal, and coronal planes. IV contrast was administered without complication. Automated exposure control was utilized for the study. A dose lowering technique was utilized adhering to the principles of ALARA. CT DOSE: 917.52 mGy.cm FINDINGS: Lung bases are unremarkable. No pneumatosis, free air or portal venous gas is present. There is possible layering material within the gallbladder. There is no pericholecystic infiltration. There is no biliary or pancreatic ductal dilatation. Moderate peripancreatic stranding has increased since CT of January 18, 2021. This extends into the mesentery. There is no peripancreatic fluid collection. Splenic vein is patent. There is no evidence for gland necrosis. The adrenal glands and kidneys are normal. There is no hydronephrosis. Borderline splenomegaly is unchanged. There is a splenule. The appendix is normal. The caliber and wall thickness of small and large bowel are normal. Small amount of fluid within the pelvis is noted. No acute fracture or suspicious lesion is identified within the visualized skeletal structures. IMPRESSION: 1. Increase in peripancreatic stranding and fluid since CT of January 18, 2021. This is consistent with acute pancreatitis. No evidence for gland necrosis. No peripancreatic fluid collection. 2. Small amount of fluid within the pelvis. 3. No bowel obstruction. No bowel wall thickening. ACT 112: Negative or not required by law. Electronically signed by: Magdi Redding M.D. 01/22/2021 12:46 PM Chest X-Ray 01/22/21 13:14 XR chest 1V portable CLINICAL HISTORY: hypoxia COMPARISON STUDY: Chest radiograph March 19, 2020. FINDINGS: Lung volumes are normal. Lungs are clear. There is no pneumothorax or pleural effusion. Cardiac size is normal. Mediastinal contours are normal. There is no evidence for pulmonary edema. IMPRESSION: No acute cardiopulmonary findings. ACT 112: Negative or not required by law. Electronically signed by: Magdi Redding M.D. 01/22/2021 1:26 PM Discharge Plan Visit Data Chief Complaint: Abdominal Pain Stated Complaint: PANCREATITIS ED Provider: Gavin Gould Discharge Problem: Acute pancreatitis, Type 2 diabetes mellitus with insulin therapy Patient Disposition: Admitted As Inpatient Discharge Instructions Interventions: ED Discharge Assessment Last Done: 01/22/21 14:09 Discharge Problem: Acute pancreatitis Qualifiers: Pancreatitis type: unspecified pancreatitis type Acute pancreatitis compli cation: unspecified Qualified Code(s): K85.90 - Acute pancreatitis without necrosis or infection, unspecified
[2021-01-22 11:50] LABS: Albumin Globulin Ratio 0.7 (0.9-2); Alkaline Phosphatase 89 U/L (45-117); Bilirubin,Total 1.2 mg/dl (0.2-1); Globulin 4.9 gm/dl (2.5-4.0); Total Protein 8.2 gm/dl (6.4-8.2); Troponin I < 0.015 ng/ml (0-0.045)
[2021-01-22] MEDS ORDERED: OPTIRAY 320 100ml IV ONE (12:13)
--- NOTE | 2021-01-22 12:34 | Electrocardiogram Report ---
Test Reason : Blood Pressure : / mmHG Vent. Rate : 078 BPM Atrial Rate : 078 BPM P-R Int : 162 ms QRS Dur : 080 ms QT Int : 394 ms P-R-T Axes : 044 -01 019 degrees QTc Int : 449 ms Normal sinus rhythm Minimal voltage criteria for LVH, may be normal variant Borderline ECG When compared with ECG of 16-DEC-2020 09:23, No significant change was found Confirmed by Michael De Leon ([id number]) on 01/22/2021 12:33:49 PM Referred By: Confirmed By:Michael De Leon
--- NOTE | 2021-01-22 12:47 | CT Scan Report ---
CT OF THE ABDOMEN AND PELVIS WITH CONTRAST CLINICAL HISTORY: worsening pancreatitis symptoms/pain COMPARISON STUDY: CT of the abdomen and pelvis January 18, 2021. TECHNIQUE: Following IV administration of 94 mL of Optiray, axial images of the abdomen and pelvis we re obtained from the lung bases to the proximal femurs. Images were reviewed in the axial, sagittal, and coronal planes. IV contrast was administered without complication. Automated exposure control wa s utilized for the study. A dose lowering technique was utilized adhering to the principles of ALARA . CT DOSE: 917.52 mGy.cm FINDINGS: Lung bases are unremarkable. No pneumatosis, free air or portal venous gas is present. Ther e is possible layering material within the gallbladder. There is no pericholecystic infiltration. The re is no biliary or pancreatic ductal dilatation. Moderate peripancreatic stranding has increased sin ce CT of January 18, 2021. This extends into the mesentery. There is no peripancreatic fluid collect ion. Splenic vein is patent. There is no evidence for gland necrosis. The adrenal glands and kidneys are normal. There is no hydronephrosis. Borderline splenomegaly is unchanged. There is a splenule. Th e appendix is normal. The caliber and wall thickness of small and large bowel are normal. Small amoun t of fluid within the pelvis is noted. No acute fracture or suspicious lesion is identified within th e visualized skeletal structures. IMPRESSION: 1. Increase in peripancreatic stranding and fluid since CT of January 18, 2021. This is consistent w ith acute pancreatitis. No evidence for gland necrosis. No peripancreatic fluid collection. 2. Small amount of fluid within the pelvis. 3. No bowel obstruction. No bowel wall thickening. ACT 112: Negative or not required by law. Electronically signed by: Magdi Redding M.D. 01/22/2021 12:46 PM
--- NOTE | 2021-01-22 13:21 | History & Physical Report ---
Date of Service January 22, 2021 Assessment & Plan (1) Acute pancreatitis: Plan: Justin's criteria on admission 0 - severe pancreatitis unlikely. Given prior fluid overload on admission in February will continue IV fluids lower than usual treatment with NSS @ 180 ml/hr. NPO US gallbladder given unclear etiology Repeat triglyceride level (normal in February) If not improving would consider stopping rosuvastatin Follow up GI as outpatient given unclear etiology (2) DUYEN on CPAP: Plan: May use own CPAP HS (3) GERD (gastroesophageal reflux disease): Plan: Switch omeprazole for pantoprazole per hospital formulary (4) Type 2 diabetes mellitus with insulin therapy: Plan: HbA1C 7.0 in August. Repeat with AM labs On insulin pump at home Consult pharmacy for glycemic control (5) Hyperlipidemia: Plan: Continue rosuvastatin (class IV possible cause of pancreatitis, consider stopping if continued pancreatitis with no other cause found) Plan: VTE Prophylaxis - low risk, SCDs only Diet - NPO Disposition - admit to med/surg Admission and Anticipated Discharge Date Admission Date: January 22, 2021 History of Present Illness Chief Complaint: Epigastric pain Primary Care Provider: BREONNA Winter Les is a 55 year old female who presents to the ER with epigastric pain that is not improving and known diagnosis of pancreatitis. She reports initial symptoms approximately 1 week ago on Sunday with epigastric pain. She has been on clear liquids since then and using oxycodone for pain relief. She has 2 other episodes of pancreatitis over the last year. Initial episode in February was blamed on Victoza. She had another mild episode in November which was treated successfully at home. Pain is epigastric and RUQ. Constant since Sunday. No radiation. Severity 8/10 at worse, 5/10 currently after Fentanyl given in the ER. She denies any alcohol since February and rarely prior to that. Triglycerides normal on last occasion. No recent changes to her medications. She has no known autoimmune conditions. In the ER lipase levels were normal however CT A/P showing increased peripancreatic stranding since Jan 18 scan. She was referred to medicine for admission and ongoing management of acute pancreatitis. Allergies Allergy/AdvReac Type Severity Reaction Status Date / Time Sulfa (Sulfonamide Allergy Intermediate Hives Verified 01/22/21 12:04 Antibiotics) adhesive tape AdvReac Intermediate redness/irr Verified 01/22/21 12:04 itation morphine AdvReac Intermediate VOMITING, Verified 01/22/21 12:04 NAUSEA simvastatin AdvReac Intermediate MUSCLE PAIN Verified 01/22/21 12:04 pseudoephedrine AdvReac Mild Tachycardia Verified 01/22/21 12:04 Home Medications Medication Instructions Recorded Confirmed Type albuterol sulfate 90 mcg/actuation 2 puffs INH Q6H PRN 10/24/18 01/22/21 History aerosol inhaler (ProAir HFA) clobetasol 0.05 % topical cream 1 appln TOPICAL BID PRN gm 10/24/18 01/22/21 History dicyclomine 20 mg tablet 20 mg PO Q6H PRN tab 10/24/18 01/22/21 History magnesium oxide 400 mg (241.3 mg 400 mg PO BID tab 10/24/18 01/22/21 History magnesium) tablet montelukast 10 mg tablet 10 mg PO HS tab 10/24/18 01/22/21 History omeprazole 20 mg tablet,delayed 20 mg PO BID tab 10/24/18 01/22/21 History release rosuvastatin 40 mg tablet (Crestor) 40 mg PO HS #90 tab 10/24/18 01/22/21 Histo ry triamcinolone acetonide 0.5 % 1 appln TOPICAL 2XWK gm 10/24/18 01/22/21 History topical cream valacyclovir 1 gram tablet 1,000 mg PO DAILY PRN tab 10/24/18 01/22/21 History melatonin 5 mg tablet 5 mg PO HS 03/16/20 01/22/21 History cyanocobalamin (vitamin B-12) 500 500 mcg PO QAM 04/05/20 01/22/21 History mcg tablet (Vitamin B-12) cholecalciferol (vitamin D3) 25 1,000 unit PO QAM 04/19/20 01/22/21 History mcg (1,000 unit) capsule (Vitamin D3) insulin regular human 100 unit/mL 50 unit SQ UD 04/19/20 01/22/21 History injection solution (Novolin R Regular U-100 Insulin) fluticasone 500 mcg-salmeterol 50 1 inh INHALATION QAM PRN ea 07/26/20 01/22/21 History mcg/dose blistr powdr for inhalation (Advair Diskus) citalopram 40 mg tablet (Celexa) 60 mg PO DAILY tab 10/14/20 01/22/21 History fexofenadine 180 mg tablet 180 mg PO DAILY #30 tab 10/14/20 01/22/21 Rx (Massiel Allergy) hydrocodone 5 mg-acetaminophen 325 1 - 2 tab PO Q6H PRN #14 tab 12/13/20 01/22/21 Rx mg tablet promethazine 25 mg tablet 25 mg PO Q6H PRN #10 tab 12/13/20 01/22/21 Rx zinc acetate 50 mg (zinc) capsule 50 mg PO DAILY 12/13/20 01/22/21 History ondansetron HCl 4 mg tablet 4 mg PO Q6H #10 tab 01/18/21 01/22/21 Rx (Zofran) oxycodone 5 mg tablet 5 mg PO Q6H PRN #10 tab 01/18/21 01/22/21 Rx docusate sodium 50 mg capsule 0 mg PO ONCE PRN 01/22/21 01/22/21 History (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 Bicuspid aortic valve follows with Dr Song, last saw Q6 months. Fatty liver GERD (gastroesophageal reflux disease) Hepatosplenomegaly pt unaware Hiatal hernia Hx of supraventricular tachycardia in her 20's -- treated with medication at that time. no problems since, no longer on medication. Hyperlipidemia Hypertension Microcytic anemia Mixed conductive and sensorineural hearing loss of left ear with restricted hearing of right ear DUYEN on CPAP Pancreatitis treated inpatient [facility] 02/2020 Sensorineural hearing loss of both ears Type 2 diabetes mellitus with insulin therapy insulin pump Surgical History History of colonoscopy History of ear surgery Left-2014 (attempted to restore hearing and reconstruction -- unsuccessful) History of elbow surgery Left History of esophagogastroduodenoscopy (EGD) History of laparoscopy ovarian cystectomy History of surgery cyst removal Family History Mother Asthma Grandfather Hypertension Heart disease Grandmother Hypertension Stroke Father Heart disease Cancer Aunt Cancer Other Environmental allergies Hearing loss No family history of bleeding disorder Social History Smoking Status: Never smoker Second Hand Exposure: No; Hx Alcohol Use: No Hx Substance Use: No Preferred Language: Greenlandic Communication Ability: Effective Upset Operator Required: No Beliefs That Will Affect Care: None marital status: Current Living Situation: Family current occupational status: employed 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 Feels Safe at Home: Yes Safety Concerns: Feels Safe At This Time Assistive Devices: CPAP, Glasses and Hearing Aid - Bilateral Review of Systems Review of Systems: All systems reviewed & are unremarkable except as noted in HPI & below Physical Exam Constitutional: WD/WN, vitals as above Eyes: + anicteric sclerae; normal pupil size ENMT: external ear and nose normal, oropharynx normal Respiratory: normal respiratory effort, lungs clear to auscultation Cardiovascular: RRR, no murmur, no edema Gastrointestinal (Abdomen): Inspection/Auscultation: + hypoactive bowel sounds Percussion/Palpation: + abdomen tender (RUQ and epigastric) and abdomen soft; no guarding and abdomen not rigid Musculoskeletal: no cyanosis or clubbing, extremities motor strength 5/5 Skin: no rashes, warm and dry Neurologic: moves all extremities and awake; not confused Psychiatric: A+Ox3, euthymic affect Genitourinary: no CVA tenderness Results & Data Results & Data ([facility]) Vital Signs (Past 12 Hours) Vital Signs Temp Pulse Resp BP Pulse Ox 01/22/21 12:50 76 17 96 01/22/21 12:40 76 17 96 01/22/21 12:30 72 15 97 01/22/21 12:20 79 15 97 01/22/21 12:18 92 H 26 H 01/22/21 12:00 75 14 97 01/22/21 11:50 80 19 01/22/21 11:40 82 19 90 01/22/21 11:30 81 17 90 01/22/21 11:20 79 18 91 01/22/21 11:18 79 19 92 01/22/21 10:45 37.7 C H 98 H 18 120/68 91 Laboratory Results Abnormal lab results 01/22/21 01/22/21 01/22/21 Range/Units 11:14 11:14 16:05 Neut # (Auto) 8.32 H (1.4-6.5) K/uL Lymph # (Auto) 0.76 L (1.2-3.4) K/uL [place] # (Auto) 0.67 H (0.11-0.59) K/uL Sodium 133 L (136-145) mmol/L BUN/Creatinine Ratio 7.6 L (10-20) Glucose 156 H (70-99) mg/dl POC Glucose (70-99) mg/dl Total Bilirubin 1.2 H (0.2-1) mg/dl AST 5 L (15-37) U/L Albumin 3.3 L (3.4-5.0) gm/dl Globulin 4.9 H (2.5-4.0) gm/dl Albumin/Globulin Ratio 0.7 L (0.9-2) Ur Specific [place] > 1.045 H (1.000-1.030) Urine Ketones Trace H (Negative) Ur Leukocyte Esterase 1+ H (Negative) Urine WBC (Auto) >30 H (0-5) /hpf Urine RBC (Auto) 5-10 H (0-4) /hpf U Hyaline Cast (Auto) 10-30 H (0-5) /lpf U Epithel Cells (Auto) 5-10 H (0-5) /lpf 01/22/21 01/22/21 Range/Units 17:28 23:56 Neut # (Auto) (1.4-6.5) K/uL Lymph # (Auto) (1.2-3.4) K/uL [place] # (Auto) (0.11-0.59) K/uL Sodium (136-145) mmol/L BUN/Creatinine Ratio (10-20) Glucose (70-99) mg/dl POC Glucose 120 H 107 H (70-99) mg/dl Total Bilirubin (0.2-1) mg/dl AST (15-37) U/L Albumin (3.4-5.0) gm/dl Globulin (2.5-4.0) gm/dl Albumin/Globulin Ratio (0.9-2) Ur Specific [place] (1.000-1.030) Urine Ketones (Negative) Ur Leukocyte Esterase (Negative) Urine WBC (Auto) (0-5) /hpf Urine RBC (Auto) (0-4) /hpf U Hyaline Cast (Auto) (0-5) /lpf U Epithel Cells (Auto) (0-5) /lpf Diagnostic Findings CT OF THE ABDOMEN AND PELVIS WITH CONTRAST CLINICAL HISTORY: worsening pancreatitis symptoms/pain COMPARISON STUDY: CT of the abdomen and pelvis January 18, 2021. TECHNIQUE: Following IV administration of 94 mL of Optiray, axial images of the abdomen and pelvis were obtained from the lung bases to the proximal femurs. Images were reviewed in the axial, sagittal, and coronal planes. IV contrast was administered without complication. Automated exposure control was utilized for the study. A dose lowering technique was utilized adhering to the principles of ALARA. CT DOSE: 917.52 mGy.cm FINDINGS: Lung bases are unremarkable. No pneumatosis, free air or portal venous gas is present. There is possible layering material within the gallbladder. There is no pericholecystic infiltration. There is no biliary or pancreatic ductal dilatation. Moderate peripancreatic stranding has increased since CT of January 18, 2021. This extends into the mesentery. There is no peripancreatic fluid collection. Splenic vein is patent. There is no evidence for gland necrosis. The adrenal glands and kidneys are normal. There is no hydronephrosis. Borderline splenomegaly is unchanged. There is a splenule. The appendix is normal. The caliber and wall thickness of small and large bowel are normal. Small amount of fluid within the pelvis is noted. No acute fracture or suspicious lesion is identified within the visualized skeletal structures. IMPRESSION: 1. Increase in peripancreatic stranding and fluid since CT of January 18, 2021. This is consistent with acute pancreatitis. No evidence for gland necrosis. No peripancreatic fluid collection. 2. Small amount of fluid within the pelvis. 3. No bowel obstruction. No bowel wall thickening. Medications Administered ER Medications Given: NSS 1L bolus Fentanyl 100mcg IV Ondansetron 4mg IV Fentanyl 50 mcg IV ECG Indication: abdominal pain Rate (beats per minute): 78 Rhythm: normal sinus Findings: no acute ischemic change Comparison ECG Date: from (December 16, 2020) Change: no significant change Code Status & VTE Plan Code Status Full VTE Prophylaxis Plan VTE Prophylaxis will be ordered: No PG Care Time/CCT Total # of Minutes Spent Total Time Spent with Patient: Total time spent is greater than 50% in coordination of care (as documented) at patient's floor/unit and/or counseling patient: Coding Level of Care Code 07209 Initial Inpt Care Lvl 2 Diagnoses Acute pancreatitis K85.90 DUYEN on CPAP G47.33; Z99.89 GERD (gastroesophageal reflux disease) K21.9 Type 2 diabetes mellitus with insulin therapy E11.9; Z79.4 Hyperlipidemia E78.5
--- NOTE | 2021-01-22 13:27 | XRay Report ---
XR chest 1V portable CLINICAL HISTORY: hypoxia COMPARISON STUDY: Chest radiograph March 19, 2020. FINDINGS: Lung volumes are normal. Lungs are clear. There is no pneumothorax or pleural effusion. Car diac size is normal. Mediastinal contours are normal. There is no evidence for pulmonary edema. IMPRESSION: No acute cardiopulmonary findings. ACT 112: Negative or not required by law. Electronically signed by: Magdi Redding M.D. 01/22/2021 1:26 PM
[2021-01-22 14:34] LABS: Triglycerides 125 mg/dl (0-150)
--- NOTE | 2021-01-22 15:09 | Ultrasound Report ---
US gallbladder CLINICAL HISTORY: acute pancreatitis, r/o cholecystitis RUQ pain COMPARISON STUDY: Right upper quadrant ultrasound December 08, 2020. CT of the abdomen and pelvis per formed earlier today. FINDINGS: There is no biliary ductal dilatation. The common bile duct measures 5 mm in caliber. No he patic lesions are identified. Pancreas is largely obscured by overlying bowel gas. There is no gallbl adder wall thickening. Moderate sludge within the gallbladder is noted. No gallstones are identified. Prominent peripancreatic lymph node is incidentally noted. There is no right hydronephrosis. IMPRESSION: 1. No gallstones or biliary ductal dilatation. 2. Moderate sludge within the gallbladder. No gallbladder wall thickening. 3. Largely obscured pancreas. ACT 112: Negative or not required by law. Electronically signed by: Magdi Redding M.D. 01/22/2021 3:07 PM
[2021-01-22] MEDS ORDERED: PHARMACY GLYCEMIC MGMT CONSULT PRN (15:23)
[2021-01-22] MEDS ORDERED: ACETAMINOPHEN 325 MG TAB PO PRN (15:23)
[2021-01-22] MEDS: SODIUM CHLORIDE 0.9% 1000ML 1,000 ML IV SCH ×2 (15:32→20:56)
[2021-01-22] MEDS ORDERED: CLOBETASOL PROPIONATE 0.05% OINT 15 GM TUBE EXT PRN (15:40)
[2021-01-22] MEDS: HYDROmorphone INJ 0.5 MG/0.5 ML SYR IV PRN ×2 (15:56→19:58)
[2021-01-22] MEDS: ONDANSETRON INJ 2 MG/ML 2 ML VIAL IV PRN ×2 (15:57→22:07)
[2021-01-22] MEDS ORDERED: CARBOHYDRATES FOR HYPOGLYCEMIA PO PRN (16:15)
[2021-01-22] MEDS ORDERED: DEXTROSE 50% 50 ML SYRINGE IV PRN (16:15)
[2021-01-22] MEDS ORDERED: GLUCOSE 10 TABS/TUBE PO PRN (16:15)
[2021-01-22] MEDS ORDERED: GLUCOSE 40% GEL 15 GM TUBE PO PRN (16:15)
[2021-01-22] MEDS ORDERED: INSULIN GLARGINE SOLOSTAR 100 UNITS/ML 3 ML PEN SC SCH (16:30)
--- NOTE | 2021-01-22 16:56 | Pharmacy Report ---
Pharmacy Glycemic Short Note 2 - Date of Service January 22, 2021 - Glycemic Short BSG Results (Last 24 hours): 01/22/21 11:14 Glucose 156 H OUTPATIENT ANTIDIABETIC REGIMEN: * Insulin pump with novolin regular insulin * basal rate = 1.3 units/hr * Pt does not know her A1c, thinks her most recent was in the 7% range. Is due for an updated value ASSESSMENT: * Spoke with patient over the phone today. Pt had to take her pump off for imaging. She is agreeable to keeping it disconnected and utilizing SQ basal bolus for inpatient use while NPO and ill. * Discussed outpatient regimen in detail- patient agreeable to Lantus 30 units SQ Q24hrs which is about equivalent to her outpatient basal dose on pump. Will use NovoLog per scale based on basal of 30 units and titrate based on BSG trends. * Will order A1c with AM labs to assess outpatient control * Pt does have/hear a cgm. OK to continue this per cgm policy- patient is aware that we will have to check POC BSG and dose insulin based on POC BSG rather th an cgm for accuracy PLAN FOR INPATIENT GLYCEMIC CONTROL: * Hold outpatient insulin pump * Basal insulin * Lantus 30 units SQ Q24hrs * Bolus insulin * NovoLog per scale ACHS or Q6hrs while NPO * Goal Range: Low 110 mg/dL - High 140 mg/dL * Correction Factor: 25 mg/dL/unit * Nutritional / Prandial insulin per carb ratio of 1 unit per 9 grams CHO consumed PLAN FOR DISCHARGE: * TBD
[2021-01-22 16:58] LABS: Appearance Urine Clear (Clear); Bacteria Urine Automated Negative (Negative); Bilirubin Urine Negative (Negative); Blood Urine Negative (Negative); Color Urine Yellow; Glucose Urine UA Negative (Negative); Ketones Urine Trace (Negative); Leukocyte Esterase Urine 1+ (Negative); Nitrite Urine Negative (Negative); Protein Urine Negative (Negative); Specific Gravity Urine > 1.045 (1.000-1.030); Urobilinogen Urine Negative (Negative); WBC Urine Automated >30 /hpf (0-5); pH Urine 5.5 (4.5-7.5)
[2021-01-22] MEDS: INSULIN ASPART 100 UNITS/ML 3 ML PEN SC SCH (17:44)
[2021-01-22] MEDS: MAGNESIUM OXIDE 400 MG TAB PO SCH (22:08)
[2021-01-22] MEDS: MONTELUKAST SODIUM 10 MG TABLET PO SCH (22:08)
[2021-01-22] MEDS: PANTOprazole 40 MG TAB PO SCH (22:09)
[2021-01-22] MEDS: MELATONIN 3 MG TAB PO SCH (22:10)
[2021-01-23] MEDS: HYDROmorphone INJ 0.5 MG/0.5 ML SYR IV PRN ×5 (00:03→20:59)
[2021-01-23] MEDS: INSULIN ASPART 100 UNITS/ML 3 ML PEN SC SCH ×4 (00:23→18:17)
[2021-01-23] MEDS: SODIUM CHLORIDE 0.9% 1000ML 1,000 ML IV SCH ×3 (02:21→13:59)
[2021-01-23] MEDS: CHOLECALCIFEROL 1,000 UNITS 25 MCG TAB PO SCH (08:08)
[2021-01-23] MEDS: CITALOPRAM 20 MG TAB PO SCH (08:08)
[2021-01-23] MEDS: MAGNESIUM OXIDE 400 MG TAB PO SCH (08:08)
[2021-01-23] MEDS: PANTOprazole 40 MG TAB PO SCH (08:08)
[2021-01-23] MEDS: FEXOFENADINE HCL 180 MG TAB PO SCH (08:08)
--- NOTE | 2021-01-23 08:28 | Hospitalist Progress Note ---
Date of Service January 23, 2021 Assessment & Plan (1) Acute pancreatitis: Plan: on imagine, lipase wnl. no hx etoh abuse, no stones on imaging --> [place] criteria on admission 0 - severe pancreatitis unlikely. Multiple episodes of pancreatitis over past year --> initial February 2020, thought 2nd to Isaak (also with microcytic anemia at that times and concerns for PUD) Recently dealt with issues at home in November and had issues over past week (also hasn't moved her bowels since last sunday and suspect worsening abd pain also element of constipation) Continue IVF, but decrease rate to 100cc/hr for now (prior admission with volume overload) Can try some clears if able Pain control Lipase wnl Tb 1.2, liver function testing wnl. RUQ US with sludge, no stones or CBD dilation. Triglycerides wnl No new medications No hypercalcemia A1c pending (prior 7.0 in August) Will check hepatitis panel, CMV GI consulted for possible sphincter of oddi dysfunction/need for ERCP/EUS --Of note, TB was 1.2 on admit, now wnl Per GI: would consult general surgery for nikolay. Dad with GB issues and sludge on imaging. However, no CBD, stones on prior episodes. General surgery consulted --> not felt related to GB, however if patient wishes to have removed could plan for this. Make NPO after midnight in case --> Discussed with Dr Brown and would consider need for EUS/ERCP Check MRCP WOULD PURSUE GI TO PERFORM ERCP/EUS for further eval if symptoms not improving with IVF/pain control and bowel regimen given current constipation and pending MRCP Continue to monitor (2) Abdominal pain: Plan: improved but still present as above, but also with constipation x 1 week and had been using oxycodone at home for pain control-- see below If abd pain continues, would pursue GI for EUS/ERCP for further eval of underlying cause of pancreatitis (3) Constipation: Plan: above discomfort lasting x 1 week, came in as pain control wsa not able to be managed at home stated usually 1x/day but hasn't gone since LAST SUNDAY no obstruction on imaging Bowel regimen added -- continue to monitor for improvement of abd pain encouraged ambulation Will also check TSH in AM but suspect 2nd to opiate use (4) DUYEN on CPAP: Plan: May use own CPAP HS (5) GERD (gastroesophageal reflux disease): Plan: Switch omeprazole for pantoprazole per hospital formulary (6) Type 2 diabetes mellitus with insulin therapy: Plan: HbA1C 7.0 in August. Repeat with AM labs On insulin pump at home --> states she typically runs 120-140s at home Consult pharmacy for glycemic control Utilzing SSI while inpatient at this time -- she felt symptomatic at 74 per her account and was provided glucagon. Continue to monitor. (7) Hyperlipidemia: Plan: Continue rosuvastatin (class IV possible cause of pancreatitis, consider stopping if continued pancreatitis with no other cause found) TG on repeat wnl Doubt rosuvastatin as cause as she has been on this for several years Plan: Continue IVF, pain control Advance diet as tolerated, low fat Bowel regimen for constipation GI, general surgery on consult NPO p MN as patient contemplating nikolay Consider MRCP +/- EUS/ERCP for further eval Admission and Anticipated Discharge Date Admission Date: January 22, 2021 Supervising Physician Co-Signing Physician Notes chart reviewed, case d/w L Paul PAC. agree w above Subjective patient evaluated this morning still with discomfort but slightly improved from admission has not moved her bowels since Sunday, no hx gastroparesis. usually goes once daily will work on bowel regimen when taking PO first bout Ced this year, reported had been on Victoza for a while. some concerns about statin however this is chronic. Has insulin pump but this is not on. BSG currently 70 and she feels slightly clammy/symptomatic from this. Having RN administer glucagon. She usually runs 120-140s at home on her pump and currently on SSI while inpatient. lipase was normal on admit, repeat pending pain to epigastric region/slight RUQ with radiation through the back. Prior episode of emesis but nothing during admission. No bile noted. had been on clear liquids for this week hoping to self treat at home but came when pain not controlled she notes she had been staying away from fatty foods and red meat to avoid aggravating her pancreas and had been taking Bentyl for her discomfort as well as pain medications. No fever, chills, chest pain, shortness of breath, current nausea, dysuria at this time. Discussed with GI and feels GB needs to come out. General surgery consulted and entering room for consult upon exiting the room. Review of Systems Review of Systems: All systems reviewed & are unremarkable except as noted in HPI & below Physical Exam Constitutional: WD/WN, vitals as above Eyes: + anicteric sclerae; normal pupil size ENMT: external ear and nose normal, oropharynx normal Respiratory: normal respiratory effort, lungs clear to auscultation Cardiovascular: RRR, no murmur, no edema Gastrointestinal (Abdomen): Inspection/Auscultation: + hypoactive bowel sounds Percussion/Palpation: + abdomen tender (RUQ and epigastric) and abdomen soft; no guarding and abdomen not rigid insulin monitor lower abdomen (not utilizing at this time) Musculoskeletal: no cyanosis or clubbing, extremities motor strength 5/5 Skin: no rashes, warm and dry Neurologic: moves all extremities and awake; not confused Psychiatric: A+Ox3, euthymic affect Genitourinary: no CVA tenderness Results & Data Results & Data ([facility]) Vital Signs (Past 12 Hours) Vital Signs Temp Pulse Resp BP Pulse Ox 01/23/21 07:44 36.7 C 80 18 123/54 L 91 01/22/21 23:59 36.5 C 83 16 109/76 93 Laboratory Results 01/23/21 01/23/21 01/23/21 Range/Units 12:38 11:54 11:12 WBC (4.8-10.8) K/uL RBC (4.2-5.4) M/uL Hgb (12.0-16.0) g/dL Hct (37-47) % MCV (80-100) fL MCH (25-34) pg MCHC (32-36) g/dL RDW Std Deviation (36.4-46.3) fL RDW Coeff of Samantha (11.5-14.5) % Plt Count (130-400) K/uL MPV (7.4-10.4) fL Immature Gran % (Auto) % Neut % (Auto) % Lymph % (Auto) % [place] % (Auto) % Eos % (Auto) % Baso % (Auto) % Neut # (Auto) (1.4-6.5) K/uL Lymph # (Auto) (1.2-3.4) K/uL [place] # (Auto) (0.11-0.59) K/uL Eos # (Auto) (0-0.5) K/uL Baso # (Auto) (0-0.2) K/uL Immature Gran # (Auto) (0.00-0.02) K/uL Sodium 140 D (136-145) mmol/L Potassium 4.0 (3.5-5.1) mmol/L Chloride 107 (98-107) mmol/L Carbon Dioxide 25 (21-32) mmol/L Anion Gap 8.0 (3-11) BUN 6 L (7-18) mg/dl Creatinine 0.66 D (0.6-1.2) mg/dl Est Cr Clr Drug Dosing 99.6 ml/min Est GFR ( Amer) 115.3 ml/min Est GFR (Non-Af Amer) 99.4 ml/min BUN/Creatinine Ratio 8.9 L (10-20) Glucose 68 L (70-99) mg/dl POC Glucose 98 89 (70-99) mg/dl Estimat Average Glucose Hemoglobin A1c Calcium 8.7 (8.5-10.1) mg/dl Magnesium 2.1 (1.8-2.4) mg/dl Total Bilirubin 0.7 D (0.2-1) mg/dl Direct Bilirubin (0-0.2) mg/dl AST 7 L (15-37) U/L ALT 9 L (12-78) Alkaline Phosphatase 75 (45-117) U/L NT-Pro-B Natriuret Pep 221 (0-900) pg/ml Total Protein 6.9 (6.4-8.2) gm/dl Albumin 2.6 L (3.4-5.0) gm/dl Globulin 4.3 H (2.5-4.0) gm/dl Albumin/Globulin Ratio 0.6 L (0.9-2) Lipase 114 (73-393) U/L Urine Color Urine Appearance (Clear) Urine pH (4.5-7.5) Ur Specific [place] (1.000-1.030) Urine Protein (Negative) Urine Glucose (UA) (Negative) Urine Ketones (Negative) Urine Blood (Negative) Urine Nitrite (Negative) Urine Bilirubin (Negative) Urine Urobilinogen (Negative) Ur Leukocyte Esterase (Negative) Urine WBC (Auto) (0-5) /hpf Urine RBC (Auto) (0-4) /hpf U Hyaline Cast (Auto) (0-5) /lpf U Epithel Cells (Auto) (0-5) /lpf Urine Bacteria (Auto) (Negative) 01/23/21 01/23/21 01/23/21 Range/Units 10:46 09:01 09:01 WBC 7.55 (4.8-10.8) K/uL RBC 3.89 L (4.2-5.4) M/uL Hgb 10.7 L (12.0-16.0) g/dL Hct 32.5 L (37-47) % MCV 83.5 (80-100) fL MCH 27.5 (25-34) pg MCHC 32.9 (32-36) g/dL RDW Std Deviation 38.9 (36.4-46.3) fL RDW Coeff of Samantha 13.0 (11.5-14.5) % Plt Count 205 (130-400) K/uL MPV 9.3 (7.4-10.4) fL Immature Gran % (Auto) 0.1 % Neut % (Auto) 76.0 % Lymph % (Auto) 14.4 % [place] % (Auto) 7.4 % Eos % (Auto) 2.0 % Baso % (Auto) 0.1 % Neut # (Auto) 5.73 (1.4-6.5) K/uL Lymph # (Auto) 1.09 L (1.2-3.4) K/uL [place] # (Auto) 0.56 (0.11-0.59) K/uL Eos # (Auto) 0.15 (0-0.5) K/uL Baso # (Auto) 0.01 (0-0.2) K/uL Immature Gran # (Auto) 0.01 (0.00-0.02) K/uL Sodium (136-145) mmol/L Potassium (3.5-5.1) mmol/L Chloride (98-107) mmol/L Carbon Dioxide (21-32) mmol/L Anion Gap (3-11) BUN (7-18) mg/dl Creatinine (0.6-1.2) mg/dl Est Cr Clr Drug Dosing ml/min Est GFR ( Amer) ml/min Est GFR (Non-Af Amer) ml/min BUN/Creatinine Ratio (10-20) Glucose (70-99) mg/dl POC Glucose 74 (70-99) mg/dl Estimat Average Glucose Hemoglobin A1c Calcium (8.5-10.1) mg/dl Magnesium (1.8-2.4) mg/dl Total Bilirubin (0.2-1) mg/dl Direct Bilirubin 0.2 (0-0.2) mg/dl AST (15-37) U/L ALT (12-78) Alkaline Phosphatase (45-117) U/L NT-Pro-B Natriuret Pep (0-900) pg/ml Total Protein (6.4-8.2) gm/dl Albumin (3.4-5.0) gm/dl Globulin (2.5-4.0) gm/dl Albumin/Globulin Ratio (0.9-2) Lipase (73-393) U/L Urine Color Urine Appearance (Clear) Urine pH (4.5-7.5) Ur Specific [place] (1.000-1.030) Urine Protein (Negative) Urine Glucose (UA) (Negative) Urine Ketones (Negative) Urine Blood (Negative) Urine Nitrite (Negative) Urine Bilirubin (Negative) Urine Urobilinogen (Negative) Ur Leukocyte Esterase (Negative) Urine WBC (Auto) (0-5) /hpf Urine RBC (Auto) (0-4) /hpf U Hyaline Cast (Auto) (0-5) /lpf U Epithel Cells (Auto) (0-5) /lpf Urine Bacteria (Auto) (Negative) 01/23/21 01/23/21 01/22/21 Range/Units 09:01 06:21 23:56 WBC (4.8-10.8) K/uL RBC (4.2-5.4) M/uL Hgb (12.0-16.0) g/dL Hct (37-47) % MCV (80-100) fL MCH (25-34) pg MCHC (32-36) g/dL RDW Std Deviation (36.4-46.3) fL RDW Coeff of Samantha (11.5-14.5) % Plt Count (130-400) K/uL MPV (7.4-10.4) fL Immature Gran % (Auto) % Neut % (Auto) % Lymph % (Auto) % [place] % (Auto) % Eos % (Auto) % Baso % (Auto) % Neut # (Auto) (1.4-6.5) K/uL Lymph # (Auto) (1.2-3.4) K/uL [place] # (Auto) (0.11-0.59) K/uL Eos # (Auto) (0-0.5) K/uL Baso # (Auto) (0-0.2) K/uL Immature Gran # (Auto) (0.00-0.02) K/uL Sodium (136-145) mmol/L Potassium (3.5-5.1) mmol/L Chloride (98-107) mmol/L Carbon Dioxide (21-32) mmol/L Anion Gap (3-11) BUN (7-18) mg/dl Creatinine (0.6-1.2) mg/dl Est Cr Clr Drug Dosing ml/min Est GFR ( Amer) ml/min Est GFR (Non-Af Amer) ml/min BUN/Creatinine Ratio (10-20) Glucose (70-99) mg/dl POC Glucose 82 107 H (70-99) mg/dl Estimat Average Glucose Pending Hemoglobin A1c Pending Calcium (8.5-10.1) mg/dl Magnesium (1.8-2.4) mg/dl Total Bilirubin (0.2-1) mg/dl Direct Bilirubin (0-0.2) mg/dl AST (15-37) U/L ALT (12-78) Alkaline Phosphatase (45-117) U/L NT-Pro-B Natriuret Pep (0-900) pg/ml Total Protein (6.4-8.2) gm/dl Albumin (3.4-5.0) gm/dl Globulin (2.5-4.0) gm/dl Albumin/Globulin Ratio (0.9-2) Lipase (73-393) U/L Urine Color Urine Appearance (Clear) Urine pH (4.5-7.5) Ur Specific [place] (1.000-1.030) Urine Protein (Negative) Urine Glucose (UA) (Negative) Urine Ketones (Negative) Urine Blood (Negative) Urine Nitrite (Negative) Urine Bilirubin (Negative) Urine Urobilinogen (Negative) Ur Leukocyte Esterase (Negative) Urine WBC (Auto) (0-5) /hpf Urine RBC (Auto) (0-4) /hpf U Hyaline Cast (Auto) (0-5) /lpf U Epithel Cells (Auto) (0-5) /lpf Urine Bacteria (Auto) (Negative) 01/22/21 01/22/21 Range/Units 17:28 16:05 WBC (4.8-10.8) K/uL RBC (4.2-5.4) M/uL Hgb (12.0-16.0) g/dL Hct (37-47) % MCV (80-100) fL MCH (25-34) pg MCHC (32-36) g/dL RDW Std Deviation (36.4-46.3) fL RDW Coeff of Samantha (11.5-14.5) % Plt Count (130-400) K/uL MPV (7.4-10.4) fL Immature Gran % (Auto) % Neut % (Auto) % Lymph % (Auto) % [place] % (Auto) % Eos % (Auto) % Baso % (Auto) % Neut # (Auto) (1.4-6.5) K/uL Lymph # (Auto) (1.2-3.4) K/uL [place] # (Auto) (0.11-0.59) K/uL Eos # (Auto) (0-0.5) K/uL Baso # (Auto) (0-0.2) K/uL Immature Gran # (Auto) (0.00-0.02) K/uL Sodium (136-145) mmol/L Potassium (3.5-5.1) mmol/L Chloride (98-107) mmol/L Carbon Dioxide (21-32) mmol/L Anion Gap (3-11) BUN (7-18) mg/dl Creatinine (0.6-1.2) mg/dl Est Cr Clr Drug Dosing ml/min Est GFR ( Amer) ml/min Est GFR (Non-Af Amer) ml/min BUN/Creatinine Ratio (10-20) Glucose (70-99) mg/dl POC Glucose 120 H (70-99) mg/dl Estimat Average Glucose Hemoglobin A1c Calcium (8.5-10.1) mg/dl Magnesium (1.8-2.4) mg/dl Total Bilirubin (0.2-1) mg/dl Direct Bilirubin (0-0.2) mg/dl AST (15-37) U/L ALT (12-78) Alkaline Phosphatase (45-117) U/L NT-Pro-B Natriuret Pep (0-900) pg/ml Total Protein (6.4-8.2) gm/dl Albumin (3.4-5.0) gm/dl Globulin (2.5-4.0) gm/dl Albumin/Globulin Ratio (0.9-2) Lipase (73-393) U/L Urine Color Yellow Urine Appearance Clear (Clear) Urine pH 5.5 (4.5-7.5) Ur Specific [place] > 1.045 H (1.000-1.030) Urine Protein Negative (Negative) Urine Glucose (UA) Negative (Negative) Urine Ketones Trace H (Negative) Urine Blood Negative (Negative) Urine Nitrite Negative (Negative) Urine Bilirubin Negative (Negative) Urine Urobilinogen Negative (Negative) Ur Leukocyte Esterase 1+ H (Negative) Urine WBC (Auto) >30 H (0-5) /hpf Urine RBC (Auto) 5-10 H (0-4) /hpf U Hyaline Cast (Auto) 10-30 H (0-5) /lpf U Epithel Cells (Auto) 5-10 H (0-5) /lpf Urine Bacteria (Auto) Negative (Negative) Diagnostic Findings Gallbladder Ultrasound 01/22/21 13:52 US gallbladder CLINICAL HISTORY: acute pancreatitis, r/o cholecystitis RUQ pain COMPARISON STUDY: Right upper quadrant ultrasound December 08, 2020. CT of the abdomen and pelvis performed earlier today. FINDINGS: There is no biliary ductal dilatation. The common bile duct measures 5 mm in caliber. No hepatic lesions are identified. Pancreas is largely obscured by overlying bowel gas. There is no gallbladder wall thickening. Moderate sludge within the gallbladder is noted. No gallstones are identified. Prominent peripancreatic lymph node is incidentally noted. There is no right hydr onephrosis. IMPRESSION: 1. No gallstones or biliary ductal dilatation. 2. Moderate sludge within the gallbladder. No gallbladder wall thickening. 3. Largely obscured pancreas. ACT 112: Negative or not required by law. Electronically signed by: Magdi Redding M.D. 01/22/2021 3:07 PM PG Care Time/CCT Total # of Minutes Spent Total Time Spent with Patient: Total time spent is greater than 50% in coordination of care (as documented) at patient's floor/unit and/or counseling patient: Coding Level of Care Code 76881 Subseq Hosp Care Lvl 3 Diagnoses Acute pancreatitis K85.90 Acute pancreatitis complication: unspecified Pancreatitis type: unspecified pancreatitis type DUYEN on CPAP G47.33; Z99.89 GERD (gastroesophageal reflux disease) K21.9 Type 2 diabetes mellitus with insulin therapy E11.9; Z79.4 Hyperlipidemia E78.5 Abdominal pain R10.9 Constipation K59.00 (1) Acute pancreatitis Acute pancreatitis complication: unspecified Pancreatitis type: unspecified pancreatitis type Qualified Code(s): K85.90 - Acute pancreatitis without necrosis or infection, unspecified
[2021-01-23 10:04] LABS: Basophils # (auto) 0.01 K/uL (0-0.2); Basophils % (auto) 0.1 %; Eosinophils # (auto) 0.15 K/uL (0-0.5); Hematocrit (blood only) 32.5 % (37-47); Hemoglobin 10.7 g/dL (12.0-16.0); Immature Granulocytes # (auto) 0.01 K/uL (0.00-0.02); Immature Granulocytes % (auto) 0.1 %; Lymphocytes # (auto) 1.09 K/uL (1.2-3.4); Lymphocytes % (auto) 14.4 %; Mean Corpuscular Hemoglobin 27.5 pg (25-34); Mean Corpuscular Hgb Conc 32.9 g/dL (32-36); Mean Corpuscular Volume 83.5 fL (80-100); Mean Platelet Volume 9.3 fL (7.4-10.4); Monocytes # (auto) 0.56 K/uL (0.11-0.59); Monocytes % (auto) 7.4 %; Neutrophils # (auto) 5.73 K/uL (1.4-6.5); Platelet Count 205 K/uL (130-400); RDW Standard Deviation 38.9 fL (36.4-46.3); Red Blood Count 3.89 M/uL (4.2-5.4); White Blood Count 7.55 K/uL (4.8-10.8)
--- NOTE | 2021-01-23 11:16 | Gastrointestinal Consultation ---
Date of Consultation January 23, 2021 Assessment & Plan (1) Acute pancreatitis: Likely consequent to GB sludge. Consistent symptoms and history and findings. Recommend cholecystectomy. Please et surgical consultation. An underlying chronic pancreatitis cannot be completely ruled out, but the immediate cause seems to be sludge well demonstrated on the USG History of Present Illness Reason for Consultation: Repeated episodes of pancreatitis Attending Physician: Rafael Stephen, History of Present Illness Pt with a few episodes of abdominal pain and prior diagnosis of pancreatitis. Now with pain for several days. tried to manage at home as it usually goes away in a few days. On interrogation she has had prior episodes of pain blamed on her GERD. Imaging study shows B sludge and some peripancreatic stranding. Allergies Allergy/AdvReac Type Severity Reaction Status Date / Time Sulfa (Sulfonamide Allergy Intermediate Hives Verified 01/22/21 12:04 Antibiotics) adhesive tape AdvReac Intermediate redness/irr Verified 01/22/21 12:04 itation morphine AdvReac Intermediate VOMITING, Verified 01/22/21 12:04 NAUSEA simvastatin AdvReac Intermediate MUSCLE PAIN Verified 01/22/21 12:04 pseudoephedrine AdvReac Mild Tachycardia Verified 01/22/21 12:04 Home Medications Medication Instructions Recorded Confirmed Type albuterol sulfate 90 mcg/actuation 2 puffs INH Q6H PRN 10/24/18 01/22/21 History aerosol inhaler (ProAir HFA) clobetasol 0.05 % topical cream 1 appln TOPICAL BID PRN gm 10/24/18 01/22/21 History dicyclomine 20 mg tablet 20 mg PO Q6H PRN tab 10/24/18 01/22/21 History magnesium oxide 400 mg (241.3 mg 400 mg PO BID tab 10/24/18 01/22/21 History magnesium) tablet montelukast 10 mg tablet 10 mg PO HS tab 10/24/18 01/22/21 History omeprazole 20 mg tablet,delayed 20 mg PO BID tab 10/24/18 01/22/21 History release rosuvastatin 40 mg tablet (Crestor) 40 mg PO HS #90 tab 10/24/18 01/22/21 History triamcinolone acetonide 0.5 % 1 appln TOPICAL 2XWK gm 10/24/18 01/22/21 History topical cream valacyclovir 1 gram tablet 1,000 mg PO DAILY PRN tab 10/24/18 01/22/21 History melatonin 5 mg tablet 5 mg PO HS 03/16/20 01/22/21 History cyanocobalamin (vitamin B-12) 500 500 mcg PO QAM 04/05/20 01/22/21 History mcg tablet (Vitamin B-12) cholecalciferol (vitamin D3) 25 1,000 unit PO QAM 04/19/20 01/22/21 History mcg (1,000 unit) capsule (Vitamin D3) insulin regular human 100 unit/mL 50 unit SQ UD 04/19/20 01/22/21 History injection solution (Novolin R Regular U-100 Insulin) fluticasone 500 mcg-salmeterol 50 1 inh INHALATION QAM PRN ea 07/26/20 01/22/21 History mcg/dose blistr powdr for inhalation (Advair Diskus) citalopram 40 mg tablet (Celexa) 60 mg PO DAILY tab 10/14/20 01/22/21 History fexofenadine 180 mg tablet 180 mg PO DAILY #30 tab 10/14/20 01/22/21 Rx (Massiel Allergy) hydrocodone 5 mg-acetaminophen 325 1 - 2 tab PO Q6H PRN #14 tab 12/13/20 01/22/21 Rx mg tablet promethazine 25 mg tablet 25 mg PO Q6H PRN #10 tab 12/13/20 01/22/21 Rx zinc acetate 50 mg (zinc) capsule 50 mg PO DAILY 12/13/20 01/22/21 History ondansetron HCl 4 mg tablet 4 mg PO Q6H #10 tab 01/18/21 01/22/21 Rx (Zofran) oxycodone 5 mg tablet 5 mg PO Q6H PRN #10 tab 01/18/21 01/22/21 Rx docusate sodium 50 mg capsule 0 mg PO ONCE PRN 01/22/21 01/22/21 History (Stool Softener) Patient History Medical History Anxiety Asthma well controlled with daily medication. Bicuspid aortic valve follows with Dr Song, last saw Q6 months. Fatty liver GERD (gastroesophageal reflux disease) Hepatosplenomegaly pt unaware Hiatal hernia Hx of supraventricular tachycardia in her 20's -- treated with medication at that time. no problems since, no longer on medication. Hyperlipidemia Hypertension Microcytic anemia Mixed conductive and sensorineural hearing loss of left ear with restricted hearing of right ear DUYEN on CPAP Pancreatitis treated inpatient [facility] 02/2020 Sensorineural hearing loss of both ears Type 2 diabetes mellitus with insulin therapy insulin pump Surgical History History of colonoscopy History of ear surgery Left-2014 (attempted to restore hearing and reconstruction -- unsuccessful) History of elbow surgery Left History of esophagogastroduodenoscopy (EGD) History of laparoscopy ovarian cystectomy History of surgery cyst removal Family History Mother Asthma Grandfather Hypertension Heart disease Grandmother Hypertension Stroke Father Heart disease Cancer Aunt Cancer Other Environmental allergies Hearing loss No family history of bleeding disorder Social History Smoking Status: Never smoker Second Hand Exposure: No; Hx Alcohol Use: No Hx Substance Use: No Preferred Language: Romanian Communication Ability: Effective Animal Husbandry Professor Required: No Beliefs That Will Affect Care: None marital status: Current Living Situation: Family current occupational status: employed 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 Feels Safe at Home: Yes Safety Concerns: Feels Safe At This Time Assistive Devices: CPAP, Glasses and Hearing Aid - Bilateral Review of Systems Cardiovascular: no chest pain Gastrointestinal: + abdominal pain and + heartburn Physical Exam Physical Exam: Obese Constitutional: WD/WN, vitals as above Respiratory: normal respiratory effort, lungs clear to auscultation Cardiovascular: RRR, no murmur, no edema Gastrointestinal (Abdomen): Inspection/Auscultation: normal bowel sounds Percussion/Palpation: + abdomen tender (epigastrium) Results & Data ([facility]) Vital Signs (Past 12 Hours) Vital Signs Temp Pulse Resp BP Pulse Ox 01/23/21 07:44 36.7 C 80 18 123/54 L 91 01/22/21 23:59 36.5 C 83 16 109/76 93 Laboratory Results Mild increase in lipase, likely was higher before (1) Acute pancreatitis Acute pancreatitis complication: unspecified Pancreatitis type: unspecified pancreatitis type Qualified Code(s): K85.90 - Acute pancreatitis without necrosis or infection, unspecified
[2021-01-23] MEDS: GLUCAGON FOR INJ 1 MG VIAL IM PRN ×2 (11:30→11:50)
[2021-01-23] MEDS ORDERED: bisacodyL 5 MG TABEC PO ONE (12:04)
[2021-01-23] MEDS ORDERED: MAGNESIUM CITRATE 296 ML/BTL PO ONE (12:04)
--- NOTE | 2021-01-23 12:19 | Surgery Consultation ---
Date of Consultation January 23, 2021 Assessment & Plan (1) Acute pancreatitis: Multiple episodes of acute pancreatitis with normal gallbladder imaging in past. No evidence of elevated liver function tests during episodes (which would have suggested passage of sludge). Imaging now shows GB sludge yet it is unclear if this is playing any role in her pancreatitis. Explained that GB sludge can cause pancreatitis but as it was not present with her previous episodes, it is less likely the cause. Lap cholecystectomy discussed with expected 1-2 week recovery period and risks of diarrhea, bile leak, food intolerances. Perhaps biggest risk with her is that removal of GB may not impact her risk of recurrent pancreatitis. I cannot strongly recommend lap nikolay although it is an option. She is going to think about things and will followup with surgery if she decides on removal. Discussed with Dr. Stephen. Present on Admission?: Yes History of Present Illness Reason for Consultation: gallbladder sludge Requesting Physician: Rafael Stephen DO Attending Physician: Rafael Stephen DO History of Present Illness 55 yr old woman with multiple episodes of acute pancreatitis since Feb 2020. Initially attributed to a medication Victoza which has since been stopped. She notes this episode started in late December (about 1 week ago) acute onset. Seen in ER 01/18 and then was going to try and manage at home. Has not had any al cohol recently, normal triglycerides, no precipitating factors that she is aware of. Pain is central upper abdomen, radiates to back, was intense enough that she did not feel she could manage at home. No vomiting. Has been using PO oxycodone, taking clear liquids only. Severity was up to 8/10, 5/10 after pain meds. Summary: Feb 2020, normal lipase. CT scan showing pancreatic stranding. US 03/11 showing trace GB sludge. May 2020: normal CT abd/ pelvis November 2020: CT scan showing inflammation of pancreatic body/ head, lipase 512, US pancreas showing no gallstones or sludge 01/18/21: seen in ER with pain, lipase 610. CT scan showing pancreatic edema of head/ proximal body 01/22/21: admitted with increase pain. lipase normal at 199. CT scan showing increase in pancreatic inflammation. US showing moderate gallbladder sludge Allergies Allergy/AdvReac Type Severity Reaction Status Date / Time Sulfa (Sulfonamide Allergy Intermediate Hives Verified 01/22/21 12:04 Antibiotics) adhesive tape AdvReac Intermediate redness/irr Verified 01/22/21 12:04 itation morphine AdvReac Intermediate VOMITING, Verified 01/22/21 12:04 NAUSEA simvastatin AdvReac Intermediate MUSCLE PAIN Verified 01/22/21 12:04 pseudoephedrine AdvReac Mild Tachycardia Verified 01/22/21 12:04 Home Medications Medication Instructions Recorded Confirmed Type albuterol sulfate 90 mcg/actuation 2 puffs INH Q6H PRN 10/24/18 01/22/21 History aerosol inhaler (ProAir HFA) clobetasol 0.05 % topical cream 1 appln TOPICAL BID PRN gm 10/24/18 01/22/21 History dicyclomine 20 mg tablet 20 mg PO Q6H PRN tab 10/24/18 01/22/21 History magnesium oxide 400 mg (241.3 mg 400 mg PO BID tab 10/24/18 01/22/21 History magnesium) tablet montelukast 10 mg tablet 10 mg PO HS tab 10/24/18 01/22/21 History omeprazole 20 mg tablet,delayed 20 mg PO BID tab 10/24/18 01/22/21 History release rosuvastatin 40 mg tablet (Crestor) 40 mg PO HS #90 tab 10/24/18 01/22/21 History triamcinolone acetonide 0.5 % 1 appln TOPICAL 2XWK gm 10/24/18 01/22/21 History topical cream valacyclovir 1 gram tablet 1,000 mg PO DAILY PRN tab 10/24/18 01/22/21 History melatonin 5 mg tablet 5 mg PO HS 03/16/20 01/22/21 History cyanocobalamin (vitamin B-12) 500 500 mcg PO QAM 04/05/20 01/22/21 History mcg tablet (Vitamin B-12) cholecalciferol (vitamin D3) 25 1,000 unit PO QAM 04/19/20 01/22/21 History mcg (1,000 unit) capsule (Vitamin D3) insulin regular human 100 unit/mL 50 unit SQ UD 04/19/20 01/22/21 History injection solution (Novolin R Regular U-100 Insulin) fluticasone 500 mcg-salmeterol 50 1 inh INHALATION QAM PRN ea 07/26/20 01/22/21 History mcg/dose blistr powdr for inhalation (Advair Diskus) citalopram 40 mg tablet (Celexa) 60 mg PO DAILY tab 10/14/20 01/22/21 History fexofenadine 180 mg tablet 180 mg PO DAILY #30 tab 10/14/20 01/22/21 Rx (Massiel Allergy) hydrocodone 5 mg-acetaminophen 325 1 - 2 tab PO Q6H PRN #14 tab 12/13/20 01/22/21 Rx mg tablet promethazine 25 mg tablet 25 mg PO Q6H PRN #10 tab 12/13/20 01/22/21 Rx zinc acetate 50 mg (zinc) capsule 50 mg PO DAILY 12/13/20 01/22/21 History ondansetron HCl 4 mg tablet 4 mg PO Q6H #10 tab 01/18/21 01/22/21 Rx (Zofran) oxycodone 5 mg tablet 5 mg PO Q6H PRN #10 tab 01/18/21 01/22/21 Rx docusate sodium 50 mg capsule 0 mg PO ONCE PRN 01/22/21 01/22/21 History (Stool Softener) Patient History Medical History Anxiety Asthma well controlled with daily medication. Bicuspid aortic valve follows with Dr Song, last saw Q6 months. Fatty liver GERD (gastroesophageal reflux disease) Hepatosplenomegaly pt unaware Hiatal hernia Hx of supraventricular tachycardia in her 20's -- treated with medication at that time. no problems since, no longer on medication. Hyperlipidemia Hypertension Microcytic anemia Mixed conductive and sensorineural hearing loss of left ear with restricted hearing of right ear DUYEN on CPAP Pancreatitis treated inpatient [facility] 02/2020 Sensorineural hearing loss of both ears Type 2 diabetes mellitus with insulin therapy insulin pump Surgical History History of colonoscopy History of ear surgery Left-2014 (attempted to restore hearing and reconstruction -- unsuccessful) History of elbow surgery Left History of esophagogastroduodenoscopy (EGD) History of laparoscopy ovarian cystectomy History of surgery cyst removal Family History Mother Asthma Grandfather Hypertension Heart disease Grandmother Hypertension Stroke Father Heart disease Cancer Aunt Cancer Other Environmental allergies Hearing loss No family history of bleeding disorder Social History Smoking Status: Never smoker Second Hand Exposure: No; Hx Alcohol Use: No Hx Substance Use: No Preferred Language: Mongolian Communication Ability: Effective Operator Specialist Communications Required: No Beliefs That Will Affect Care: None marital status: Current Living Situation: Family current occupational status: employed 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 Feels Safe at Home: Yes Safety Concerns: Feels Safe At This Time Assistive Devices: CPAP, Glasses and Hearing Aid - Bilateral Review of Systems Constitutional: no problem reported Eyes: no problem reported Respiratory: no problem reported Cardiovascular: no problem reported Gastrointestinal: as per Subjective / HPI and + change in bowel habits (constipated) Genitourinary: no problem reported Neurologic: no problem reported Psychiatric: no problem reported Endocrine: no problem reported Physical Exam Constitutional: WD/WN, vitals as above Eyes: PERRL, conjunctivae normal, anicteric sclerae ENMT: external ear and nose normal, oropharynx normal Neck: trachea midline, no thyromegaly Respiratory: normal respiratory effort, lungs clear to auscultation Cardiovascular: RRR, no murmur, no edema Gastrointestinal (Abdomen): soft, nondistended, tender in epigastrium with guarding, pos bowel tones, no surgical scars, no hernias Musculoskeletal: no cyanosis or clubbing, extremities motor strength 5/5 Neurologic: no gross motor defects Psychiatric: A+Ox3, euthymic affect Results & Data ([facility]) Vital Signs (Past 12 Hours) Vital Signs Temp Pulse Resp BP Pulse Ox 01/23/21 07:44 36.7 C 80 18 123/54 L 91 Laboratory Results 01/23/21 01/23/21 01/23/21 Range/Units 11:54 11:12 10:46 WBC (4.8-10.8) K/uL RBC (4.2-5.4) M/uL Hgb (12.0-16.0) g/dL Hct (37-47) % MCV (80-100) fL MCH (25-34) pg MCHC (32-36) g/dL RDW Std Deviation (36.4-46.3) fL RDW Coeff of Samantha (11.5-14.5) % Plt Count (130-400) K/uL MPV (7.4-10.4) fL Immature Gran % (Auto) % Neut % (Auto) % Lymph % (Auto) % [place] % (Auto) % Eos % (Auto) % Baso % (Auto) % Neut # (Auto) (1.4-6.5) K/uL Lymph # (Auto) (1.2-3.4) K/uL [place] # (Auto) (0.11-0.59) K/uL Eos # (Auto) (0-0.5) K/uL Baso # (Auto) (0-0.2) K/uL Immature Gran # (Auto) (0.00-0.02) K/uL Sodium Pending Potassium Pending Chloride Pending Carbon Dioxide Pending Anion Gap Pending BUN Pending Creatinine Pending Est Cr Clr Drug Dosing Pending Est GFR ( Amer) Pending Est GFR (Non-Af Amer) Pending BUN/Creatinine Ratio Pending Glucose Pending POC Glucose 89 74 (70-99) mg/dl Estimat Average Glucose Hemoglobin A1c Calcium Pending Total Bilirubin Pending Direct Bilirubin (0-0.2) mg/dl AST Pending ALT Pending Alkaline Phosphatase Pending Lactate Dehydrogenase (84-246) U/L NT-Pro-B Natriuret Pep Pending Total Protein Pending Albumin Pending Globulin Pending Albumin/Globulin Ratio Pending Triglycerides (0-150) mg/dl Lipase Pending Urine Color Urine Appearance (Clear) Urine pH (4.5-7.5) Ur Specific [place] (1.000-1.030) Urine Protein (Negative) Urine Glucose (UA) (Negative) Urine Ketones (Negative) Urine Blood (Negative) Urine Nitrite (Negative) Urine Bilirubin (Negative) Urine Urobilinogen (Negative) Ur Leukocyte Esterase (Negative) Urine WBC (Auto) (0-5) /hpf Urine RBC (Auto) (0-4) /hpf U Hyaline Cast (Auto) (0-5) /lpf U Epithel Cells (Auto) (0-5) /lpf Urine Bacteria (Auto) (Negative) SARS-CoV-2, RNA, NAAT (NEGATIVE) 01/23/21 01/23/21 01/23/21 Range/Units 09:01 09:01 09:01 WBC 7.55 (4.8-10.8) K/uL RBC 3.89 L (4.2-5.4) M/uL Hgb 10.7 L (12.0-16.0) g/dL Hct 32.5 L (37-47) % MCV 83.5 (80-100) fL MCH 27.5 (25-34) pg MCHC 32.9 (32-36) g/dL RDW Std Deviation 38.9 (36.4-46.3) fL RDW Coeff of Samantha 13.0 (11.5-14.5) % Plt Count 205 (130-400) K/uL MPV 9.3 (7.4-10.4) fL Immature Gran % (Auto) 0.1 % Neut % (Auto) 76.0 % Lymph % (Auto) 14.4 % [place] % (Auto) 7.4 % Eos % (Auto) 2.0 % Baso % (Auto) 0.1 % Neut # (Auto) 5.73 (1.4-6.5) K/uL Lymph # (Auto) 1.09 L (1.2-3.4) K/uL [place] # (Auto) 0.56 (0.11-0.59) K/uL Eos # (Auto) 0.15 (0-0.5) K/uL Baso # (Auto) 0.01 (0-0.2) K/uL Immature Gran # (Auto) 0.01 (0.00-0.02) K/uL Sodium Potassium Chloride Carbon Dioxide Anion Gap BUN Creatinine Est Cr Clr Drug Dosing Est GFR ( Amer) Est GFR (Non-Af Amer) BUN/Creatinine Ratio Glucose POC Glucose (70-99) mg/dl Estimat Average Glucose Pending Hemoglobin A1c Pending Calcium Total Bilirubin Direct Bilirubin 0.2 (0-0.2) mg/dl AST ALT Alkaline Phosphatase Lactate Dehydrogenase (84-246) U/L NT-Pro-B Natriuret Pep Total Protein Albumin Globulin Albumin/Globulin Ratio Triglycerides (0-150) mg/dl Lipase Urine Color Urine Appearance (Clear) Urine pH (4.5-7.5) Ur Specific [place] (1.000-1.030) Urine Protein (Negative) Urine Glucose (UA) (Negative) Urine Ketones (Negative) Urine Blood (Negative) Urine Nitrite (Negative) Urine Bilirubin (Negative) Urine Urobilinogen (Negative) Ur Leukocyte Esterase (Negative) Urine WBC (Auto) (0-5) /hpf Urine RBC (Auto) (0-4) /hpf U Hyaline Cast (Auto) (0-5) /lpf U Epithel Cells (Auto) (0-5) /lpf Urine Bacteria (Auto) (Negative) SARS-CoV-2, RNA, NAAT (NEGATIVE) 01/23/21 01/22/21 01/22/21 Range/Units 06:21 23:56 17:28 WBC (4.8-10.8) K/uL RBC (4.2-5.4) M/uL Hgb (12.0-16.0) g/dL Hct (37-47) % MCV (80-100) fL MCH (25-34) pg MCHC (32-36) g/dL RDW Std Deviation (36.4-46.3) fL RDW Coeff of Samantha (11.5-14.5) % Plt Count (130-400) K/uL MPV (7.4-10.4) fL Immature Gran % (Auto) % Neut % (Auto) % Lymph % (Auto) % [place] % (Auto) % Eos % (Auto) % Baso % (Auto) % Neut # (Auto) (1.4-6.5) K/uL Lymph # (Auto) (1.2-3.4) K/uL [place] # (Auto) (0.11-0.59) K/uL Eos # (Auto) (0-0.5) K/uL Baso # (Auto) (0-0.2) K/uL Immature Gran # (Auto) (0.00-0.02) K/uL Sodium Potassium Chloride Carbon Dioxide Anion Gap BUN Creatinine Est Cr Clr Drug Dosing Est GFR ( Amer) Est GFR (Non-Af Amer) BUN/Creatinine Ratio Glucose POC Glucose 82 107 H 120 H (70-99) mg/dl Estimat Average Glucose Hemoglobin A1c Calcium Total Bilirubin Direct Bilirubin (0-0.2) mg/dl AST ALT Alkaline Phosphatase Lactate Dehydrogenase (84-246) U/L NT-Pro-B Natriuret Pep Total Protein Albumin Globulin Albumin/Globulin Ratio Triglycerides (0-150) mg/dl Lipase Urine Color Urine Appearance (Clear) Urine pH (4.5-7.5) Ur Specific [place] (1.000-1.030) Urine Protein (Negative) Urine Glucose (UA) (Negative) Urine Ketones (Negative) Urine Blood (Negative) Urine Nitrite (Negative) Urine Bilirubin (Negative) Urine Urobilinogen (Negative) Ur Leukocyte Esterase (Negative) Urine WBC (Auto) (0-5) /hpf Urine RBC (Auto) (0-4) /hpf U Hyaline Cast (Auto) (0-5) /lpf U Epithel Cells (Auto) (0-5) /lpf Urine Bacteria (Auto) (Negative) SARS-CoV-2, RNA, NAAT (NEGATIVE) 01/22/21 01/22/21 01/22/21 Range/Units 16:05 12:55 11:14 WBC (4.8-10.8) K/uL RBC (4.2-5.4) M/uL Hgb (12.0-16.0) g/dL Hct (37-47) % MCV (80-100) fL MCH (25-34) pg MCHC (32-36) g/dL RDW Std Deviation (36.4-46.3) fL RDW Coeff of Samantha (11.5-14.5) % Plt Count (130-400) K/uL MPV (7.4-10.4) fL Immature Gran % (Auto) % Neut % (Auto) % Lymph % (Auto) % [place] % (Auto) % Eos % (Auto) % Baso % (Auto) % Neut # (Auto) (1.4-6.5) K/uL Lymph # (Auto) (1.2-3.4) K/uL [place] # (Auto) (0.11-0.59) K/uL Eos # (Auto) (0-0.5) K/uL Baso # (Auto) (0-0.2) K/uL Immature Gran # (Auto) (0.00-0.02) K/uL Sodium Potassium Chloride Carbon Dioxide Anion Gap BUN Creatinine Est Cr Clr Drug Dosing Est GFR ( Amer) Est GFR (Non-Af Amer) BUN/Creatinine Ratio Glucose POC Glucose (70-99) mg/dl Estimat Average Glucose Hemoglobin A1c Calcium Total Bilirubin Direct Bilirubin (0-0.2) mg/dl AST ALT Alkaline Phosphatase Lactate Dehydrogenase 176 (84-246) U/L NT-Pro-B Natriuret Pep Total Protein Albumin Globulin Albumin/Globulin Ratio Triglycerides (0-150) mg/dl Lipase Urine Color Yellow Urine Appearance Clear (Clear) Urine pH 5.5 (4.5-7.5) Ur Specific [place] > 1.045 H (1.000-1.030) Urine Protein Negative (Negative) Urine Glucose (UA) Negative (Negative) Urine Ketones Trace H (Negative) Urine Blood Negative (Negative) Urine Nitrite Negative (Negative) Urine Bilirubin Negative (Negative) Urine Urobilinogen Negative (Negative) Ur Leukocyte Esterase 1+ H (Negative) Urine WBC (Auto) >30 H (0-5) /hpf Urine RBC (Auto) 5-10 H (0-4) /hpf U Hyaline Cast (Auto) 10-30 H (0-5) /lpf U Epithel Cells (Auto) 5-10 H (0-5) /lpf Urine Bacteria (Auto) Negative (Negative) SARS-CoV-2, RNA, NAAT NEGATIVE (NEGATIVE) 01/22/21 Range/Units 11:14 WBC (4.8-10.8) K/uL RBC (4.2-5.4) M/uL Hgb (12.0-16.0) g/dL Hct (37-47) % MCV (80-100) fL MCH (25-34) pg MCHC (32-36) g/dL RDW Std Deviation (36.4-46.3) fL RDW Coeff of Samantha (11.5-14.5) % Plt Count (130-400) K/uL MPV (7.4-10.4) fL Immature Gran % (Auto) % Neut % (Auto) % Lymph % (Auto) % [place] % (Auto) % Eos % (Auto) % Baso % (Auto) % Neut # (Auto) (1.4-6.5) K/uL Lymph # (Auto) (1.2-3.4) K/uL [place] # (Auto) (0.11-0.59) K/uL Eos # (Auto) (0-0.5) K/uL Baso # (Auto) (0-0.2) K/uL Immature Gran # (Auto) (0.00-0.02) K/uL Sodium Potassium Chloride Carbon Dioxide Anion Gap BUN Creatinine Est Cr Clr Drug Dosing Est GFR ( Amer) Est GFR (Non-Af Amer) BUN/Creatinine Ratio Glucose POC Glucose (70-99) mg/dl Estimat Average Glucose Hemoglobin A1c Calcium Total Bilirubin Direct Bilirubin (0-0.2) mg/dl AST ALT Alkaline Phosphatase Lactate Dehydrogenase (84-246) U/L NT-Pro-B Natriuret Pep Total Protein Albumin Globulin Albumin/Globulin Ratio Triglycerides 125 (0-150) mg/dl Lipase Urine Color Urine Appearance (Clear) Urine pH (4.5-7.5) Ur Specific [place] (1.000-1.030) Urine Protein (Negative) Urine Glucose (UA) (Negative) Urine Ketones (Negative) Urine Blood (Negative) Urine Nitrite (Negative) Urine Bilirubin (Negative) Urine Urobilinogen (Negative) Ur Leukocyte Esterase (Negative) Urine WBC (Auto) (0-5) /hpf Urine RBC (Auto) (0-4) /hpf U Hyaline Cast (Auto) (0-5) /lpf U Epithel Cells (Auto) (0-5) /lpf Urine Bacteria (Auto) (Negative) SARS-CoV-2, RNA, NAAT (NEGATIVE) Diagnostic Findings CT OF THE ABDOMEN AND PELVIS WITH CONTRAST CLINICAL HISTORY: worsening pancreatitis symptoms/pain COMPARISON STUDY: CT of the abdomen and pelvis January 18, 2021. TECHNIQUE: Following IV administration of 94 mL of Optiray, axial images of the abdomen and pelvis were obtained from the lung bases to the proximal femurs. Images were reviewed in the axial, sagittal, and coronal planes. IV contrast was administered without complication. Automated exposure control was utilized for the study. A dose lowering technique was utilized adhering to the principles of ALARA. CT DOSE: 917.52 mGy.cm FINDINGS: Lung bases are unremarkable. No pneumatosis, free air or portal venous gas is present. There is possible layering material within the gallbladder. Th ere is no pericholecystic infiltration. There is no biliary or pancreatic ductal dilatation. Moderate peripancreatic stranding has increased since CT of January 18, 2021. This extends into the mesentery. There is no peripancreatic fluid collection. Splenic vein is patent. There is no evidence for gland necrosis. The adrenal glands and kidneys are normal. There is no hydronephrosis. Borderline splenomegaly is unchanged. There is a splenule. The appendix is normal. The caliber and wall thickness of small and large bowel are normal. Small amount of fluid within the pelvis is noted. No acute fracture or suspicious lesion is identified within the visualized skeletal structures. IMPRESSION: 1. Increase in peripancreatic stranding and fluid since CT of January 18, 2021. This is consistent with acute pancreatitis. No evidence for gland necrosis. No peripancreatic fluid collection. 2. Small amount of fluid within the pelvis. 3. No bowel obstruction. No bowel wall thickening. US gallbladder CLINICAL HISTORY: acute pancreatitis, r/o cholecystitis RUQ pain COMPARISON STUDY: Right upper quadrant ultrasound December 08, 2020. CT of the abdomen and pelvis performed earlier today. FINDINGS: There is no biliary ductal dilatation. The common bile duct measures 5 mm in caliber. No hepatic lesions are identified. Pancreas is largely obscured by overlying bowel gas. There is no gallbladder wall thickening. Moderate sludge within the gallbladder is noted. No gallstones are identified. Prominent peripancreatic lymph node is incidentally noted. There is no right hydronephrosis. IMPRESSION: 1. No gallstones or biliary ductal dilatation. 2. Moderate sludge within the gallbladder. No gallbladder wall thickening. 3. Largely obscured pancreas. (1) Acute pancreatitis Acute pancreatitis complication: unspecified Pancreatitis type: unspecified pancreatitis type Qualified Code(s): K85.90 - Acute pancreatitis without necrosis or infection, unspecified
[2021-01-23 13:13] LABS: Albumin Globulin Ratio 0.6 (0.9-2); Albumin Level 2.6 gm/dl (3.4-5.0); BUN Creatinine Ratio 8.9 (10-20); Bilirubin,Total 0.7 mg/dl (0.2-1); Calcium 8.7 mg/dl (8.5-10.1); Creatinine Clr Calc Pharmacy 99.6 ml/min; Est GFR (African American) 115.3 ml/min; Est GFR (Non-African American) 99.4 ml/min; Globulin 4.3 gm/dl (2.5-4.0); Magnesium 2.1 mg/dl (1.8-2.4); Total Protein 6.9 gm/dl (6.4-8.2)
[2021-01-23] MEDS ORDERED: INSULIN GLARGINE SOLOSTAR 100 UNITS/ML 3 ML PEN SC SCH ×2 (18:00→21:00)
[2021-01-23] MEDS: INSULIN GLARGINE SOLOSTAR 100 UNITS/ML 3 ML PEN SQ SCH (21:02)
[2021-01-24] MEDS: MELATONIN 3 MG TAB PO SCH ×2 (00:10→21:49)
[2021-01-24] MEDS: MAGNESIUM OXIDE 400 MG TAB PO SCH ×3 (00:53→20:57)
[2021-01-24] MEDS: SODIUM CHLORIDE 0.9% 1000ML 1,000 ML IV SCH ×2 (00:53→11:10)
[2021-01-24] MEDS: PANTOprazole 40 MG TAB PO SCH ×3 (00:54→20:57)
[2021-01-24] MEDS: MONTELUKAST SODIUM 10 MG TABLET PO SCH ×2 (00:54→20:57)
[2021-01-24] MEDS: HYDROmorphone INJ 0.5 MG/0.5 ML SYR IV PRN ×2 (00:59→20:58)
[2021-01-24] MEDS ORDERED: Nursing to Pharmacy Communication SCH ×3 (01:15→11:45)
[2021-01-24] MEDS: INSULIN ASPART 100 UNITS/ML 3 ML PEN SC SCH ×6 (01:41→21:47)
[2021-01-24] MEDS ORDERED: INSULIN ASPART 100 UNITS/ML 3 ML PEN SC SCH (07:30)
[2021-01-24 07:34] LABS: Estimated Average Glucose 143 mg/dl; Hemoglobin A1C 6.6 % (4.5-5.6)
--- NOTE | 2021-01-24 07:39 | Magnetic Resonance Report ---
MRCP CLINICAL HISTORY: Recurrent pancreatitis. TECHNIQUE: Utilizing a 1.5 Rivka magnet and dedicated coil, multiplanar, multiecho imaging of the [facility] er abdomen was performed utilizing heavily T2 weighted pulsing sequences without IV contrast. COMPARISON STUDY: CT of the abdomen and pelvis and right upper quadrant ultrasound January 22, 2021. FINDINGS: Cardiomegaly is incidentally noted. The gallbladder is mildly distended. No pericholecystic fluid is noted. No gallstones are noted within the gallbladder by MRI. There may be minimal sludge w ithin the gallbladder. No biliary ductal dilatation is present. Common bile duct measures 3 mm in valencia iber. No common bile duct calculi are identified although distal common bile duct is slightly obscure d. The pancreas is edematous with peripancreatic stranding and fluid. No peripancreatic fluid collect ion is present. There is no pancreatic ductal dilatation. Unenhanced images of the spleen, adrenal gl ands and kidneys are unremarkable. Caliber of visualized small and large bowel are normal. IMPRESSION: 1. Edematous pancreas with peripancreatic stranding and fluid consistent with acute pancreatitis. No peripancreatic fluid collection. 2. No biliary ductal dilatation. No common bile duct calculi identified. 2. Mild gallbladder distention. No pericholecystic fluid. Possible sludge within the gallbladder. No gallstones identified. ACT 112: Negative or not required by law. Electronically signed by: Magdi Redding M.D. 01/24/2021 7:38 AM
[2021-01-24 08:11] LABS: Basophils # (auto) 0.01 K/uL (0-0.2); Basophils % (auto) 0.2 %; Eosinophils # (auto) 0.21 K/uL (0-0.5); Eosinophils % (auto) 3.4 %; Hematocrit (blood only) 31.2 % (37-47); Hemoglobin 10.2 g/dL (12.0-16.0); Immature Granulocytes # (auto) 0.01 K/uL (0.00-0.02); Immature Granulocytes % (auto) 0.2 %; Lymphocytes # (auto) 0.91 K/uL (1.2-3.4); Lymphocytes % (auto) 14.8 %; Mean Corpuscular Hemoglobin 27.1 pg (25-34); Mean Corpuscular Hgb Conc 32.7 g/dL (32-36); Mean Corpuscular Volume 82.8 fL (80-100); Mean Platelet Volume 9.2 fL (7.4-10.4); Monocytes # (auto) 0.43 K/uL (0.11-0.59); Neutrophils # (auto) 4.58 K/uL (1.4-6.5); Neutrophils % (auto) 74.4 %; Platelet Count 203 K/uL (130-400); RDW Coefficient of Variation 12.9 % (11.5-14.5); Red Blood Count 3.77 M/uL (4.2-5.4); White Blood Count 6.15 K/uL (4.8-10.8)
--- NOTE | 2021-01-24 08:41 | Gastroenterology Progress Note ---
Date of Service January 24, 2021 Assessment & Plan (1) Acute pancreatitis: Plan: Acute pancreatitis: Patient admitted with acute pancreatitis. Previous admission for pancreatitis within the last year. Previously acute pancreatitis thought to be related to Victoza use. This medication has since been discontinued. Current pancreatitis? Related to gallbladder sludge. She has been evaluated by general surgery service. She also has an appointment with [facility] for second opinion evaluation scheduled for 02/22/2021 due to her recurrent pancreatitis. She will need an EUS of the pancreas as an outpatient. Okay to advance diet to clear liquids. Continue supportive care measures. Please refer to supervising physician addendum for further recommendations. Admission and Anticipated Discharge Date Admission Date: January 22, 2021 Supervising Physician Co-Signing Physician Notes I have seen and examined the patient. I agree with note above by BREONNA Adams except as noted below. HPI Pt states abdomen feels full but not much pain. Tolerating clear liquids so far today. Pt states no recent ETOH use. PE Abdomen pos bs, soft, no guarding nor rebound A/P pancreaitisi---advance diet as tolerated. F/U with [facility] on 02/22/21. EUS to look for pancreas lesions and GB sludge are two possible etiologies of recurrent pancreaitis. Subjective Patient is awake alert and oriented this morning. She reports that she is feeling somewhat better. Her pain is improved. Reports she now has some diarrhea. She reports after her last hospitalization she wanted to see a specialist in [place] and she does have an appointment with GI at [facility] 02/22/2021. She denies any nausea or vomiting. No blood in stools. Social History: The patient is a lifetime non-smoker with no significant secondhand smoke exposures. She reports she consumes alcohol approximately 2-3 times per year. Denies use of recreational drugs including marijuana. She is and has 4 adult children. 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 Review of Systems Review of Systems: All systems reviewed & are unremarkable except as noted in HPI & below Physical Exam Physical Exam: Obese Constitutional: WD/WN, vitals as above Respiratory: normal respiratory effort, lungs clear to auscultation Cardiovascular: RRR, no murmur, no edema Gastrointestinal (Abdomen): Inspection/Auscultation: normal bowel sounds Percussion/Palpation: + abdomen tender (epigastrium) Results & Data ([facility]) Vital Signs (Past 12 Hours) Vital Signs Temp Pulse Resp BP Pulse Ox 01/24/21 07:29 36.5 C 65 18 116/73 95 01/24/21 00:54 36.8 C 71 18 100/64 91 Laboratory Results Laboratory Results - last 24 hr 01/23/21 01/23/21 01/23/21 09:01 09:01 09:01 WBC 7.55 RBC 3.89 L Hgb 10.7 L Hct 32.5 L MCV 83.5 MCH 27.5 MCHC 32.9 RDW Std Deviation 38.9 RDW Coeff of Samantha 13.0 Plt Count 205 MPV 9.3 Immature Gran % (Auto) 0.1 Neut % (Auto) 76.0 Lymph % (Auto) 14.4 [place] % (Auto) 7.4 Eos % (Auto) 2.0 Baso % (Auto) 0.1 Neut # (Auto) 5.73 Lymph # (Auto) 1.09 L [place] # (Auto) 0.56 Eos # (Auto) 0.15 Baso # (Auto) 0.01 Immature Gran # (Auto) 0.01 Sodium Potassium Chloride Carbon Dioxide Anion Gap BUN Creatinine Est Cr Clr Drug Dosing Est GFR ( Amer) Est GFR (Non-Af Amer) BUN/Creatinine Ratio Glucose POC Glucose Estimat Average Glucose 143 Hemoglobin A1c 6.6 H Calcium Magnesium Total Bilirubin Direct Bilirubin 0.2 AST ALT Alkaline Phosphatase NT-Pro-B Natriuret Pep Total Protein Albumin Globulin Albumin/Globulin Ratio Lipase TSH CMV IgM Ab CMV IgG Ab/TORCH Hepatitis A IgM Ab Hep Bs Antigen Hep B Core IgM Ab Hepatitis C Antibody 01/23/21 01/23/21 01/23/21 10:46 11:12 11:54 WBC RBC Hgb Hct MCV MCH MCHC RDW Std Deviation RDW Coeff of Samantha Plt Count MPV Immature Gran % (Auto) Neut % (Auto) Lymph % (Auto) [place] % (Auto) Eos % (Auto) Baso % (Auto) Neut # (Auto) Lymph # (Auto) [place] # (Auto) Eos # (Auto) Baso # (Auto) Immature Gran # (Auto) Sodium 140 D Potassium 4.0 Chloride 107 Carbon Dioxide 25 Anion Gap 8.0 BUN 6 L Creatinine 0.66 D Est Cr Clr Drug Dosing 99.6 Est GFR ( Amer) 115.3 Est GFR (Non-Af Amer) 99.4 BUN/Creatinine Ratio 8.9 L Glucose 68 L POC Glucose 74 89 Estimat Average Glucose Hemoglobin A1c Calcium 8.7 Magnesium 2.1 Total Bilirubin 0.7 D Direct Bilirubin AST 7 L ALT 9 L Alkaline Phosphatase 75 NT-Pro-B Natriuret Pep 221 Total Protein 6.9 Albumin 2.6 L Globulin 4.3 H Albumin/Globulin Ratio 0.6 L Lipase 114 TSH CMV IgM Ab CMV IgG Ab/TORCH Hepatitis A IgM Ab Hep Bs Antigen Hep B Core IgM Ab Hepatitis C Antibody 01/23/21 01/23/21 01/23/21 12:38 16:50 20:30 WBC RBC Hgb Hct MCV MCH MCHC RDW Std Deviation RDW Coeff of Samantha Plt Count MPV Immature Gran % (Auto) Neut % (Auto) Lymph % (Auto) [place] % (Auto) Eos % (Auto) Baso % (Auto) Neut # (Auto) Lymph # (Auto) [place] # (Auto) Eos # (Auto) Baso # (Auto) Immature Gran # (Auto) Sodium Potassium Chloride Carbon Dioxide Anion Gap BUN Creatinine Est Cr Clr Drug Dosing Est GFR ( Amer) Est GFR (Non-Af Amer) BUN/Creatinine Ratio Glucose POC Glucose 98 135 H 131 H Estimat Average Glucose Hemoglobin A1c Calcium Magnesium Total Bilirubin Direct Bilirubin AST ALT Alkaline Phosphatase NT-Pro-B Natriuret Pep Total Protein Albumin Globulin Albumin/Globulin Ratio Lipase TSH CMV IgM Ab CMV IgG Ab/TORCH Hepatitis A IgM Ab Hep Bs Antigen Hep B Core IgM Ab Hepatitis C Antibody 01/24/21 01/24/21 01/24/21 06:13 07:44 07:44 WBC 6.15 RBC 3.77 L Hgb 10.2 L Hct 31.2 L MCV 82.8 MCH 27.1 MCHC 32.7 RDW Std Deviation 39.0 RDW Coeff of Samantha 12.9 Plt Count 203 MPV 9.2 Immature Gran % (Auto) 0.2 Neut % (Auto) 74.4 Lymph % (Auto) 14.8 [place] % (Auto) 7.0 Eos % (Auto) 3.4 Baso % (Auto) 0.2 Neut # (Auto) 4.58 Lymph # (Auto) 0.91 L [place] # (Auto) 0.43 Eos # (Auto) 0.21 Baso # (Auto) 0.01 Immature Gran # (Auto) 0.01 Sodium Pending Potassium Pending Chloride Pending Carbon Dioxide Pending Anion Gap Pending BUN Pending Creatinine Pending Est Cr Clr Drug Dosing Pending Est GFR ( Amer) Pending Est GFR (Non-Af Amer) Pending BUN/Creatinine Ratio Pending Glucose Pending POC Glucose 113 H Estimat Average Glucose Hemoglobin A1c Calcium Pending Magnesium Pending Total Bilirubin Pending Direct Bilirubin AST Pending ALT Pending Alkaline Phosphatase Pending NT-Pro-B Natriuret Pep Total Protein Pending Albumin Pending Globulin Pending Albumin/Globulin Ratio Pending Lipase TSH Pending CMV IgM Ab CMV IgG Ab/TORCH Hepatitis A IgM Ab Hep Bs Antigen Hep B Core IgM Ab Hepatitis C Antibody 01/24/21 01/24/21 01/24/21 07:44 07:44 08:11 WBC RBC Hgb Hct MCV MCH MCHC RDW Std Deviation RDW Coeff of Samantha Plt Count MPV Immature Gran % (Auto) Neut % (Auto) Lymph % (Auto) [place] % (Auto) Eos % (Auto) Baso % (Auto) Neut # (Auto) Lymph # (Auto) [place] # (Auto) Eos # (Auto) Baso # (Auto) Immature Gran # (Auto) Sodium Potassium Chloride Carbon Dioxide Anion Gap BUN Creatinine Est Cr Clr Drug Dosing Est GFR ( Amer) Est GFR (Non-Af Amer) BUN/Creatinine Ratio Glucose POC Glucose 109 H Estimat Average Glucose Hemoglobin A1c Calcium Magnesium Total Bilirubin Direct Bilirubin AST ALT Alkaline Phosphatase NT-Pro-B Natriuret Pep Total Protein Albumin Globulin Albumin/Globulin Ratio Lipase TSH CMV IgM Ab Pending CMV IgG Ab/TORCH Pending Hepatitis A IgM Ab Pending Hep Bs Antigen Pending Hep B Core IgM Ab Pending Hepatitis C Antibody Pending Diagnostic Findings Cholangiopancreatography MRI 01/23/21 15:04 MRCP CLINICAL HISTORY: Recurrent pancreatitis. TECHNIQUE: Utilizing a 1.5 Rivka magnet and dedicated coil, multiplanar, multiecho imaging of the upper abdomen was performed utilizing heavily T2 weighted pulsing sequences without IV contrast. COMPARISON STUDY: CT of the abdomen and pelvis and right upper quadrant ultrasound January 22, 2021. FINDINGS: Cardiomegaly is incidentally noted. The gallbladder is mildly distended. No pericholecystic fluid is noted. No gallstones are noted within the gallbladder by MRI. There may be minimal sludge within the gallbladder. No biliary ductal dilatation is present. Common bile duct measures 3 mm in caliber. No common bile duct calculi are identified although distal common bile duct is slightly obscured. The pancreas is edematous with peripancreatic stranding and fluid. No peripancreatic fluid collection is present. There is no pancreatic ductal dilatation. Unenhanced images of the spleen, adrenal glands and kidneys are unremarkable. Caliber of visualized small and large bowel are normal. IMPRESSION: 1. Edematous pancreas with peripancreatic stranding and fluid consistent with acute pancreatitis. No peripancreatic fluid collection. 2. No biliary ductal dilatation. No common bile duct calculi identified. 2. Mild gallbladder distention. No pericholecystic fluid. Possible sludge within the gallbladder. No gallstones identified. ACT 112: Negative or not required by law. Electronically signed by: Magdi Redding M.D. 01/24/2021 7:38 AM Acute pancreatitis: (1) Acute pancreatitis Acute pancreatitis complication: unspecified Pancreatitis type: unspecified pancreatitis type Qualified Code(s): K85.90 - Acute pancreatitis without necrosis or infection, unspecified
[2021-01-24 08:45] LABS: Albumin Level 2.5 gm/dl (3.4-5.0); Calcium 8.5 mg/dl (8.5-10.1); Creatinine Clr Calc Pharmacy 85.4 ml/min; Est GFR (African American) 100.7 ml/min; Est GFR (Non-African American) 86.9 ml/min; Magnesium 2.4 mg/dl (1.8-2.4); Potassium 3.7 mmol/L (3.5-5.1)
[2021-01-24 08:55] LABS: Albumin Globulin Ratio 0.6 (0.9-2); Bilirubin,Total 0.5 mg/dl (0.2-1); Globulin 4.2 gm/dl (2.5-4.0); Thyroid Stimulating Hormone 1.81 uIu/ml (0.300-4.500); Total Protein 6.7 gm/dl (6.4-8.2)
[2021-01-24] MEDS: CITALOPRAM 20 MG TAB PO SCH (09:08)
[2021-01-24] MEDS: FEXOFENADINE HCL 180 MG TAB PO SCH (09:09)
[2021-01-24] MEDS: CHOLECALCIFEROL 1,000 UNITS 25 MCG TAB PO SCH (09:09)
[2021-01-24 09:44] LABS: Hepatitis B Surf Ag Rflx Conf Neg (Neg)
--- NOTE | 2021-01-24 09:47 | Surgery Progress Note ---
Date of Service January 24, 2021 Assessment & Plan (1) Acute pancreatitis: (2) Gallbladder sludge: Plan: Multiple episodes of acute pancreatitis with normal gallbladder imaging in past. No evidence of elevated liver function tests during episodes (which would have s uggested passage of sludge). Imaging now shows GB sludge yet it is unclear if this is playing any role in her pancreatitis. Explained that GB sludge can cause pancreatitis but as it was not present with her previous episodes, it is less likely the cause. Lap cholecystectomy discussed with expected 1-2 week recovery period and risks of diarrhea, bile leak, food intolerances. Perhaps biggest risk with her is that removal of GB may not impact her risk of recurrent pancreatitis. 01/24/21: -MRCP showing pancreatitis without biliary obstruction or signs of acute cholecystitis - no leukocytosis, t. bili and lfts wnl, lipase wnl (01/23/21) Plan: Patient would prefer outpatient EUS procedure for further evaluation of her pancreas prior to entertaining laparoscopic cholecystectomy. Has appt scheduled with specialist in [place] on 02/22/21. Okay to advance diet as tolerated as she does not want to undergo surgery at this time would recommend low fat diet until further work-up established can follow-up with surgery as outpatient once further evaluation with EUS is obtained if needs cholecystectomy/symptoms persist despite negative EUS work-up. Our services signing off, please call with questions/concerns. Dr. Riojas has seen and examined pt, agrees with above Admission and Anticipated Discharge Date Admission Date: January 22, 2021 Subjective feeling better, her pain is 2/10 was 9/10 upon presentation to ER + hungry States she would prefer to have EUS procedure first prior to gallbladder surgery for further evaluation of her pancreas. Has appt with GI specialist in [place] on 02/22/21. Physical Exam Constitutional: WD/WN, vitals as above + overweight; no acute distress and not ill appearing Respiratory: normal respiratory effort; no respiratory distress and no labored breathing Gastrointestinal (Abdomen): Inspection/Auscultation: abdomen normal to inspection; abdomen not distended Percussion/Palpation: + abdomen tender (epigastrium) and abdomen soft; no guarding and abdomen not rigid Skin: no rashes, warm and dry no jaundice Psychiatric: A+Ox3, euthymic affect Results & Data ([facility]) Vital Signs (Past 12 Hours) Vital Signs Temp Pulse Resp BP Pulse Ox 12/06/21 07:29 36.5 C 65 18 116/73 95 01/24/21 00:54 36.8 C 71 18 100/64 91 Laboratory Results 01/24/21 01/24/21 01/24/21 Range/Units 08:11 07:44 07:44 WBC (4.8-10.8) K/uL RBC (4.2-5.4) M/uL Hgb (12.0-16.0) g/dL Hct (37-47) % MCV (80-100) fL MCH (25-34) pg MCHC (32-36) g/dL RDW Std Deviation (36.4-46.3) fL RDW Coeff of Samantha (11.5-14.5) % Plt Count (130-400) K/uL MPV (7.4-10.4) fL Immature Gran % (Auto) % Neut % (Auto) % Lymph % (Auto) % [place] % (Auto) % Eos % (Auto) % Baso % (Auto) % Neut # (Auto) (1.4-6.5) K/uL Lymph # (Auto) (1.2-3.4) K/uL [place] # (Auto) (0.11-0.59) K/uL Eos # (Auto) (0-0.5) K/uL Baso # (Auto) (0-0.2) K/uL Immature Gran # (Auto) (0.00-0.02) K/uL Sodium (136-145) mmol/L Potassium (3.5-5.1) mmol/L Chloride (98-107) mmol/L Carbon Dioxide (21-32) mmol/L Anion Gap (3-11) BUN (7-18) mg/dl Creatinine (0.6-1.2) mg/dl Est Cr Clr Drug Dosing ml/min Est GFR ( Amer) ml/min Est GFR (Non-Af Amer) ml/min BUN/Creatinine Ratio (10-20) Glucose (70-99) mg/dl POC Glucose 109 H (70-99) mg/dl Estimat Average Glucose mg/dl Hemoglobin A1c (4.5-5.6) % Calcium (8.5-10.1) mg/dl Magnesium (1.8-2.4) mg/dl Total Bilirubin (0.2-1) mg/dl Direct Bilirubin (0-0.2) mg/dl AST (15-37) U/L ALT (12-78) Alkaline Phosphatase (45-117) U/L NT-Pro-B Natriuret Pep (0-900) pg/ml Total Protein (6.4-8.2) gm/dl Albumin (3.4-5.0) gm/dl Globulin (2.5-4.0) gm/dl Albumin/Globulin Ratio (0.9-2) Lipase (73-393) U/L TSH (0.300-4.500) uIu/ml CMV IgM Ab Pending CMV IgG Ab/TORCH Pending Hepatitis A IgM Ab Pending Hep Bs Antigen Pending Hep B Core IgM Ab Pending Hepatitis C Antibody Pending 01/24/21 01/24/21 01/24/21 Range/Units 07:44 07:44 06:13 WBC 6.15 (4.8-10.8) K/uL RBC 3.77 L (4.2-5.4) M/uL Hgb 10.2 L (12.0-16.0) g/dL Hct 31.2 L (37-47) % MCV 82.8 (80-100) fL MCH 27.1 (25-34) pg MCHC 32.7 (32-36) g/dL RDW Std Deviation 39.0 (36.4-46.3) fL RDW Coeff of Samantha 12.9 (11.5-14.5) % Plt Count 203 (130-400) K/uL MPV 9.2 (7.4-10.4) fL Immature Gran % (Auto) 0.2 % Neut % (Auto) 74.4 % Lymph % (Auto) 14.8 % [place] % (Auto) 7.0 % Eos % (Auto) 3.4 % Baso % (Auto) 0.2 % Neut # (Auto) 4.58 (1.4-6.5) K/uL Lymph # (Auto) 0.91 L (1.2-3.4) K/uL [place] # (Auto) 0.43 (0.11-0.59) K/uL Eos # (Auto) 0.21 (0-0.5) K/uL Baso # (Auto) 0.01 (0-0.2) K/uL Immature Gran # (Auto) 0.01 (0.00-0.02) K/uL Sodium 139 (136-145) mmol/L Potassium 3.7 (3.5-5.1) mmol/L Chloride 106 (98-107) mmol/L Carbon Dioxide 26 (21-32) mmol/L Anion Gap 7.0 (3-11) BUN 5 L (7-18) mg/dl Creatinine 0.77 (0.6-1.2) mg/dl Est Cr Clr Drug Dosing 85.4 ml/min Est GFR ( Amer) 100.7 ml/min Est GFR (Non-Af Amer) 86.9 ml/min BUN/Creatinine Ratio 7.0 L (10-20) Glucose 108 H (70-99) mg/dl POC Glucose 113 H (70-99) mg/dl Estimat Average Glucose mg/dl Hemoglobin A1c (4.5-5.6) % Calcium 8.5 (8.5-10.1) mg/dl Magnesium 2.4 (1.8-2.4) mg/dl Total Bilirubin 0.5 (0.2-1) mg/dl Direct Bilirubin (0-0.2) mg/dl AST 13 L (15-37) U/L ALT 14 (12-78) Alkaline Phosphatase 101 (45-117) U/L NT-Pro-B Natriuret Pep (0-900) pg/ml Total Protein 6.7 (6.4-8.2) gm/dl Albumin 2.5 L (3.4-5.0) gm/dl Globulin 4.2 H (2.5-4.0) gm/dl Albumin/Globulin Ratio 0.6 L (0.9-2) Lipase (73-393) U/L TSH 1.810 (0.300-4.500) uIu/ml CMV IgM Ab CMV IgG Ab/TORCH Hepatitis A IgM Ab Hep Bs Antigen Hep B Core IgM Ab Hepatitis C Antibody 01/23/21 01/23/21 01/23/21 Range/Units 20:30 16:50 12:38 WBC (4.8-10.8) K/uL RBC (4.2-5.4) M/uL Hgb (12.0-16.0) g/dL Hct (37-47) % MCV (80-100) fL MCH (25-34) pg MCHC (32-36) g/dL RDW Std Deviation (36.4-46.3) fL RDW Coeff of Samantha (11.5-14.5) % Plt Count (130-400) K/uL MPV (7.4-10.4) fL Immature Gran % (Auto) % Neut % (Auto) % Lymph % (Auto) % [place] % (Auto) % Eos % (Auto) % Baso % (Auto) % Neut # (Auto) (1.4-6.5) K/uL Lymph # (Auto) (1.2-3.4) K/uL [place] # (Auto) (0.11-0.59) K/uL Eos # (Auto) (0-0.5) K/uL Baso # (Auto) (0-0.2) K/uL Immature Gran # (Auto) (0.00-0.02) K/uL Sodium (136-145) mmol/L Potassium (3.5-5.1) mmol/L Chloride (98-107) mmol/L Carbon Dioxide (21-32) mmol/L Anion Gap (3-11) BUN (7-18) mg/dl Creatinine (0.6-1.2) mg/dl Est Cr Clr Drug Dosing ml/min Est GFR ( Amer) ml/min Est GFR (Non-Af Amer) ml/min BUN/Creatinine Ratio (10-20) Glucose (70-99) mg/dl POC Glucose 131 H 135 H 98 (70-99) mg/dl Estimat Average Glucose mg/dl Hemoglobin A1c (4.5-5.6) % Calcium (8.5-10.1) mg/dl Magnesium (1.8-2.4) mg/dl Total Bilirubin (0.2-1) mg/dl Direct Bilirubin (0-0.2) mg/dl AST (15-37) U/L ALT (12-78) Alkaline Phosphatase (45-117) U/L NT-Pro-B Natriuret Pep (0-900) pg/ml Total Protein (6.4-8.2) gm/dl Albumin (3.4-5.0) gm/dl Globulin (2.5-4.0) gm/dl Albumin/Globulin Ratio (0.9-2) Lipase (73-393) U/L TSH (0.300-4.500) uIu/ml CMV IgM Ab CMV IgG Ab/TORCH Hepatitis A IgM Ab Hep Bs Antigen Hep B Core IgM Ab Hepatitis C Antibody 01/23/21 01/23/21 01/23/21 Range/Units 11:54 11:12 10:46 WBC (4.8-10.8) K/uL RBC (4.2-5.4) M/uL Hgb (12.0-16.0) g/dL Hct (37-47) % MCV (80-100) fL MCH (25-34) pg MCHC (32-36) g/dL RDW Std Deviation (36.4-46.3) fL RDW Coeff of Samantha (11.5-14.5) % Plt Count (130-400) K/uL MPV (7.4-10.4) fL Immature Gran % (Auto) % Neut % (Auto) % Lymph % (Auto) % [place] % (Auto) % Eos % (Auto) % Baso % (Auto) % Neut # (Auto) (1.4-6.5) K/uL Lymph # (Auto) (1.2-3.4) K/uL [place] # (Auto) (0.11-0.59) K/uL Eos # (Auto) (0-0.5) K/uL Baso # (Auto) (0-0.2) K/uL Immature Gran # (Auto) (0.00-0.02) K/uL Sodium 140 D (136-145) mmol/L Potassium 4.0 (3.5-5.1) mmol/L Chloride 107 (98-107) mmol/L Carbon Dioxide 25 (21-32) mmol/L Anion Gap 8.0 (3-11) BUN 6 L (7-18) mg/dl Creatinine 0.66 D (0.6-1.2) mg/dl Est Cr Clr Drug Dosing 99.6 ml/min Est GFR ( Amer) 115.3 ml/min Est GFR (Non-Af Amer) 99.4 ml/min BUN/Creatinine Ratio 8.9 L (10-20) Glucose 68 L (70-99) mg/dl POC Glucose 89 74 (70-99) mg/dl Estimat Average Glucose mg/dl Hemoglobin A1c (4.5-5.6) % Calcium 8.7 (8.5-10.1) mg/dl Magnesium 2.1 (1.8-2.4) mg/dl Total Bilirubin 0.7 D (0.2-1) mg/dl Direct Bilirubin (0-0.2) mg/dl AST 7 L (15-37) U/L ALT 9 L (12-78) Alkaline Phosphatase 75 (45-117) U/L NT-Pro-B Natriuret Pep 221 (0-900) pg/ml Total Protein 6.9 (6.4-8.2) gm/dl Albumin 2.6 L (3.4-5.0) gm/dl Globulin 4.3 H (2.5-4.0) gm/dl Albumin/Globulin Ratio 0.6 L (0.9-2) Lipase 114 (73-393) U/L TSH (0.300-4.500) uIu/ml CMV IgM Ab CMV IgG Ab/TORCH Hepatitis A IgM Ab Hep Bs Antigen Hep B Core IgM Ab Hepatitis C Antibody 01/23/21 01/23/21 01/23/21 Range/Units 09:01 09:01 09:01 WBC 7.55 (4.8-10.8) K/uL RBC 3.89 L (4.2-5.4) M/uL Hgb 10.7 L (12.0-16.0) g/dL Hct 32.5 L (37-47) % MCV 83.5 (80-100) fL MCH 27.5 (25-34) pg MCHC 32.9 (32-36) g/dL RDW Std Deviation 38.9 (36.4-46.3) fL RDW Coeff of Samantha 13.0 (11.5-14.5) % Plt Count 205 (130-400) K/uL MPV 9.3 (7.4-10.4) fL Immature Gran % (Auto) 0.1 % Neut % (Auto) 76.0 % Lymph % (Auto) 14.4 % [place] % (Auto) 7.4 % Eos % (Auto) 2.0 % Baso % (Auto) 0.1 % Neut # (Auto) 5.73 (1.4-6.5) K/uL Lymph # (Auto) 1.09 L (1.2-3.4) K/uL [place] # (Auto) 0.56 (0.11-0.59) K/uL Eos # (Auto) 0.15 (0-0.5) K/uL Baso # (Auto) 0.01 (0-0.2) K/uL Immature Gran # (Auto) 0.01 (0.00-0.02) K/uL Sodium (136-145) mmol/L Potassium (3.5-5.1) mmol/L Chloride (98-107) mmol/L Carbon Dioxide (21-32) mmol/L Anion Gap (3-11) BUN (7-18) mg/dl Creatinine (0.6-1.2) mg/dl Est Cr Clr Drug Dosing ml/min Est GFR ( Amer) ml/min Est GFR (Non-Af Amer) ml/min BUN/Creatinine Ratio (10-20) Glucose (70-99) mg/dl POC Glucose (70-99) mg/dl Estimat Average Glucose 143 mg/dl Hemoglobin A1c 6.6 H (4.5-5.6) % Calcium (8.5-10.1) mg/dl Magnesium (1.8-2.4) mg/dl Total Bilirubin (0.2-1) mg/dl Direct Bilirubin 0.2 (0-0.2) mg/dl AST (15-37) U/L ALT (12-78) Alkaline Phosphatase (45-117) U/L NT-Pro-B Natriuret Pep (0-900) pg/ml Total Protein (6.4-8.2) gm/dl Albumin (3.4-5.0) gm/dl Globulin (2.5-4.0) gm/dl Albumin/Globulin Ratio (0.9-2) Lipase (73-393) U/L TSH (0.300-4.500) uIu/ml CMV IgM Ab CMV IgG Ab/TORCH Hepatitis A IgM Ab Hep Bs Antigen Hep B Core IgM Ab Hepatitis C Antibody Diagnostic Findings MRCP CLINICAL HISTORY: Recurrent pancreatitis. TECHNIQUE: Utilizing a 1.5 Rivka magnet and dedicated coil, multiplanar, multiecho imaging of the upper abdomen was performed utilizing heavily T2 weighted pulsing sequences without IV contrast. COMPARISON STUDY: CT of the abdomen and pelvis and right upper quadrant ultrasound January 22, 2021. FINDINGS: Cardiomegaly is incidentally noted. The gallbladder is mildly distended. No pericholecystic fluid is noted. No gallstones are noted within the gallbladder by MRI. There may be minimal sludge within the gallbladder. No biliary ductal dilatation is present. Common bile duct measures 3 mm in caliber. No common bile duct calculi are identified although distal common bile duct is slightly obscured. The pancreas is edematous with peripancreatic stranding and fluid. No peripancreatic fluid collection is present. There is no pancreatic ductal dilatation. Unenhanced images of the spleen, adrenal glands and kidneys are unremarkable. Caliber of visualized small and large bowel are normal. IMPRESSION: 1. Edematous pancreas with peripancreatic stranding and fluid consistent with acute pancreatitis. No peripancreatic fluid collection. 2. No biliary ductal dilatation. No common bile duct calculi identified. 2. Mild gallbladder distention. No pericholecystic fluid. Possible sludge within the gallbladder. No gallstones identified. (1) Acute pancreatitis Acute pancreatitis complication: unspecified Pancreatitis type: unspecified pancreatitis type Qualified Code(s): K85.90 - Acute pancreatitis without necrosis or infection, unspecified
[2021-01-24 10:13] LABS: Hepatitis C IgG 13Yrs+Old_Rflx Neg (Neg)
--- NOTE | 2021-01-24 12:25 | Pharmacy Report ---
Pharmacy Glycemic Short Note 2 - Date of Service January 24, 2021 - Glycemic Short BSG Results (Last 24 hours): 01/23/21 01/23/21 01/23/21 11:12 12:38 16:50 Glucose 68 L POC Glucose 98 135 H 01/23/21 01/24/21 01/24/21 20:30 06:13 07:44 Glucose 108 H POC Glucose 131 H 113 H 01/24/21 08:11 Glucose POC Glucose 109 H OUTPATIENT ANTIDIABETIC REGIMEN: * Insulin pump with novolin regular insulin * basal rate = 1.3 units/hr * Pt does not know her A1c, thinks her most recent was in the 7% range. Is due for an updated value ASSESSMENT: 01/24/21 * Patient's BSGs yesterday were 40-66-208-131 mg/dL and fasting today is 108 mg/dL. * Patient received 28 units of insulin yesterday with 25 units of basal and 3 units of bolus. (Patient mostly NPO yesterday). * Fasting stable so continue Lantus 25 units. Patient now ordered diet and undergoing conservative measures. * Continue Novolog Background * Spoke with patient over the phone today. Pt had to take her pump off for imaging. She is agreeable to keeping it disconnected and utilizing SQ basal bolus for inpatient use while NPO and ill. * Discussed outpatient regimen in detail- patient agreeable to Lantus 30 units SQ Q24hrs which is about equivalent to her outpatient basal dose on pump. Will use NovoLog per scale based on basal of 30 units and titrate based on BSG trends. * Will order A1c with AM labs to assess outpatient control * Pt does have/hear a cgm. OK to continue this per cgm policy- patient is aware that we will have to check POC BSG and dose insulin based on POC BSG rather than cgm for accuracy PLAN FOR INPATIENT GLYCEMIC CONTROL: * Hold outpatient insulin pump * Basal insulin * Lantus 25 units SQ Q24hrs * Bolus insulin * NovoLog per scale ACHS or Q6hrs while NPO * Goal Range: Low 110 mg/dL - High 140 mg/dL * Correction Factor: 25 mg/dL/unit * Nutritional / Prandial insulin per carb ratio of 1 unit per 9 grams CHO consumed PLAN FOR DISCHARGE: * HbA1C within goal range. Continue outpatient regimen as long as patient is not having problems with hypoglycemia.
[2021-01-24] MEDS ORDERED: SIMETHICONE 80 MG CHEW PO ONE (14:20)
--- NOTE | 2021-01-24 14:58 | Hospitalist Progress Note ---
Date of Service January 24, 2021 Assessment & Plan (1) Acute pancreatitis: Plan: - on imaging, lipase wnl. no hx etoh abuse, no stones on imaging --> Justin's criteria on admission 0 - severe pancreatitis unlikely. Multiple episodes of pancreatitis over past year --> initial February 2020, thought 2nd to [facility] (also with microcytic anemia at that times and concerns for PUD) Recently dealt with issues at home in November and had issues over past week (also hasn't moved her bowels since last Sunday and suspect worsening abd pain also element of constipation) - Some crackles in LLL and will hold additional fluids for now and allow oral intake; tolerated clears and will advance to full liquids for dinner and monitor tolerance - Did require IV pain medication around midnight but nothing through the day - Having diarrhea currently - MRCP - edematous pancreas with peripanreatic stranding and fluid consistent with acute pancreatitis; no fluid collection; no ductal dilatation; no CBD calculi identified; mild gallbladder distention and no pericholecystic fluid; possible sludge within the gallbladder - CMV pending; negative Hep C and Hep B antigen; pending Hep A and Hep B Core - GI following - planning on outpatient EUS - has appt with Britney on 02/22/2021 - Gen Surg following - can plan for outpatient evaluation pending EUS as patient would prefer to await cholecystectomy until EUS; no urgent surgical need for removal at this time -- Recommend low fat diet until EUS or until surgical intervention is completed (2) Abdominal pain: Plan: - IMPROVING -- as above, but also with constipation x 1 week and had been using oxycodone at home for pain control-- see below - If abd pain continues, would pursue GI for EUS/ERCP (inpatient) for further eval of underlying cause of pancreatitis - would need [facility] if needed (3) Constipation: Plan: - As above discomfort lasting x 1 week, came in as pain control was not able to be managed at home - Now having diarrhea due to bowel regimen meds (4) DUYEN on CPAP: Plan: - May use own CPAP HS (5) GERD (gastroesophageal reflux disease): Plan: - Switch omeprazole for pantoprazole per hospital formulary (6) Type 2 diabetes mellitus with insulin therapy: Plan: - HbA1C 7.0 in August now down to 6.6 - On insulin pump at home --> states she typically runs 120-140s at home - Consult pharmacy for glycemic control Utilizing SSI while inpatient at this time -- she felt symptomatic at 74 per her account and was provided glucagon. Continue to monitor. (7) Hyperlipidemia: Plan: - Continue rosuvastatin (class IV possible cause of pancreatitis, consider stopping if continued pancreatitis with no other cause found) -- Doubt rosuvastatin as cause as she has been on this for several years Plan: - Will advance to low fat diet as tolerated; outpatient plan for EUS/nikolay pending symptom improvement - Do not anticipate home needs Admission and Anticipated Discharge Date Admission Date: January 22, 2021 Subjective Reports abdominal pain is improving but has diarrhea and bloating today. Tolerating a clear liquid diet and will advanced to full liquids for dinner. She would like to await EUS before deciding on a cholecystectomy. She verbalizes no new complaints Review of Systems Review of Systems: All systems reviewed & are unremarkable except as noted in Subjective Physical Exam Physical Exam: PHYSICAL EXAM General Appearance: WDWN in NAD who is A&O x 3 HEENT: Head is normocephalic/atraumatic; Hearing grossly intact; Mucous membra christina moist Neck: Supple; Trachea midline; Neg JVD Heart: RRR with no M/G/R Lungs: CTA in all lung collins bilaterally; Respirations unlabored; Neg accessory muscle use Abdomen: Soft, non-tender, mild bloating; Positive BS x 4 quadrants Extremities: Neg cyanosis or edema Neurological: Speech clear; Gross motor/sensory function intact; Neg focal neurologic deficits Psychiatric: Appropriate mood/affect Skin: Normal Color; Warm/Dry Results & Data Results & Data ([facility]) Vital Signs (Past 12 Hours) Vital Signs Temp Pulse Resp BP Pulse Ox 01/24/21 07:29 36.5 C 65 18 116/73 95 PG Care Time/CCT Total # of Minutes Spent Total Time Spent with Patient: Total time spent is greater than 50% in coordination of care (as documented) at patient's floor/unit and/or counseling patient: Coding Level of Care Code 66166 Subseq Hosp Care Lvl 3 Diagnoses Acute pancreatitis K85.90 Acute pancreatitis complication: unspecified Pancreatitis type: unspecified pancreatitis type Abdominal pain R10.9 Constipation K59.00 DUYEN on CPAP G47.33; Z99.89 GERD (gastroesophageal reflux disease) K21.9 Type 2 diabetes mellitus with insulin therapy E11.9; Z79.4 Hyperlipidemia E78.5 (1) Acute pancreatitis Acute pancreatitis complication: unspecified Pancreatitis type: unspecified pancreatitis type Qualified Code(s): K85.90 - Acute pancreatitis without necrosis or infection, unspecified
[2021-01-24] MEDS: SIMETHICONE 80 MG CHEW PO PRN (21:04)
[2021-01-24] MEDS: INSULIN GLARGINE SOLOSTAR 100 UNITS/ML 3 ML PEN SQ SCH (21:47)
--- NOTE | 2021-01-25 08:53 | Gastroenterology Progress Note ---
Date of Service January 25, 2021 Assessment & Plan (1) Acute pancreatitis: Plan: Acute pancreatitis: Patient admitted with acute pancreatitis. Previous admission for pancreatitis within the last year. Previously acute pancreatitis thought to be related to Victoza use. This medication has since been discontinued. Current pancreatitis ? related to gallbladder sludge. She has been evaluated by general surgery service. She also has an appointment with [facility] for second opinion evaluation scheduled for 02/22/2021 due to her recurrent pancreatitis. She will need an EUS of the pancreas as an outpatient. Advance diet as tolerated. Continue supportive care measures. Please refer to supervising physician addendum for further recommendations. Admission and Anticipated Discharge Date Admission Date: January 22, 2021 Supervising Physician Co-Signing Physician Notes I have seen and examined the patient. I agree with note above by BREONNA Adams except as noted below. HPI Pt tolerating full liquid diet. Some abd pain but improved overall PE Abdomen pos bs, soft, no guarding nor rebound A/P acute pancreatitis--improved --pt has [facility] appt 02/23/20. She states she discussed with hospitalist about going to [facility] in [facility] for consideration of endoscopic ultrasound and workup instead. Subjective Patient awake alert and oriented this morning. She states she is feeling good. Denies any abdominal pain. She did have to be medicated x1 during the night for pain. Denies nausea or vomiting. Reports tolerated clear liquid diet okay yesterday. Reports no bowel movement since Sunday. Physical Exam Gastrointestinal (Abdomen): Inspection/Auscultation: normal bowel sounds Percussion/Palpation: + abdomen tender (epigastrium) Results & Data ([facility]) Vital Signs (Past 12 Hours) Vital Signs Temp Pulse Resp BP Pulse Ox 01/25/21 07:42 36.8 C 57 L 18 136/87 92 01/25/21 00:00 36.5 C 63 18 116/64 94 Laboratory Results Laboratory Results - last 24 hr 01/24/21 01/24/21 01/24/21 07:44 07:44 12:26 POC Glucose 231 H Total Bilirubin 0.5 Alkaline Phosphatase 101 Total Protein 6.7 Globulin 4.2 H Albumin/Globulin Ratio 0.6 L TSH 1.810 Hep Bs Antigen Neg Hepatitis C Antibody Neg 01/24/21 01/24/21 01/25/21 17:02 21:36 08:01 POC Glucose 144 H 117 H 110 H Total Bilirubin Alkaline Phosphatase Total Protein Globulin Albumin/Globulin Ratio TSH Hep Bs Antigen Hepatitis C Antibody (1) Acute pancreatitis Acute pancreatitis complication: unspecified Pancreatitis type: unspecified pancreatitis type Qualified Code(s): K85.90 - Acute pancreatitis without necrosis or infection, unspecified
[2021-01-25] MEDS: INSULIN ASPART 100 UNITS/ML 3 ML PEN SC SCH ×4 (09:17→21:08)
[2021-01-25] MEDS: CHOLECALCIFEROL 1,000 UNITS 25 MCG TAB PO SCH (09:20)
[2021-01-25] MEDS: CITALOPRAM 20 MG TAB PO SCH (09:20)
[2021-01-25] MEDS: MAGNESIUM OXIDE 400 MG TAB PO SCH ×2 (09:21→21:02)
[2021-01-25] MEDS: FEXOFENADINE HCL 180 MG TAB PO SCH (09:21)
[2021-01-25] MEDS: PANTOprazole 40 MG TAB PO SCH ×2 (09:22→21:02)
[2021-01-25] MEDS: TRIAMCINOLONE ACET 0.5% CR 15 GM TUBE TOP SCH ×2 (09:23→18:58)
[2021-01-25 09:43] LABS: Basophils # (auto) 0.02 K/uL (0-0.2); Basophils % (auto) 0.4 %; Eosinophils % (auto) 6.5 %; Hematocrit (blood only) 34.2 % (37-47); Hemoglobin 11.3 g/dL (12.0-16.0); Immature Granulocytes # (auto) 0.01 K/uL (0.00-0.02); Immature Granulocytes % (auto) 0.2 %; Lymphocytes % (auto) 23.8 %; Mean Corpuscular Hemoglobin 27.2 pg (25-34); Mean Corpuscular Volume 82.2 fL (80-100); Mean Platelet Volume 9.4 fL (7.4-10.4); Monocytes # (auto) 0.23 K/uL (0.11-0.59); Neutrophils # (auto) 2.96 K/uL (1.4-6.5); Neutrophils % (auto) 64.1 %; Platelet Count 257 K/uL (130-400); RDW Coefficient of Variation 12.7 % (11.5-14.5); RDW Standard Deviation 38.4 fL (36.4-46.3); Red Blood Count 4.16 M/uL (4.2-5.4); White Blood Count 4.62 K/uL (4.8-10.8)
[2021-01-25 10:09] LABS: Albumin Level 2.9 gm/dl (3.4-5.0); BUN Creatinine Ratio 4.7 (10-20); Calcium 9.1 mg/dl (8.5-10.1); Creatinine Clr Calc Pharmacy 80.2 ml/min; Est GFR (African American) 93.4 ml/min; Est GFR (Non-African American) 80.6 ml/min; Potassium 3.3 mmol/L (3.5-5.1)
[2021-01-25 10:12] LABS: Albumin Globulin Ratio 0.6 (0.9-2); Bilirubin,Total 0.5 mg/dl (0.2-1); Globulin 4.5 gm/dl (2.5-4.0); Total Protein 7.4 gm/dl (6.4-8.2)
--- NOTE | 2021-01-25 11:52 | Pharmacy Report ---
Pharmacy Glycemic Short Note 2 - Date of Service January 25, 2021 - Glycemic Short BSG Results (Last 24 hours): 01/24/21 01/24/21 01/24/21 12:26 17:02 21:36 Glucose POC Glucose 231 H 144 H 117 H 01/25/21 01/25/21 08:01 09:19 Glucose 159 H POC Glucose 110 H OUTPATIENT ANTIDIABETIC REGIMEN: * Insulin pump with novolin regular insulin * basal rate = 1.3 units/hr * Pt does not know her A1c, thinks her most recent was in the 7% range. Is due for an updated value ASSESSMENT: 01/25/21 * Patient's BSGs yesterday were [phone] mg/dL and fasting today is 110 mg/dL. * Patient received 38 units of insulin yesterday with 25 units of basal and 13 units of bolus. * Fasting stable so continue Lantus 25 units. * Continue Novolog 01/24/21 * Patient's BSGs yesterday were 20-01-228-131 mg/dL and fasting today is 108 mg/dL. * Patient received 28 units of insulin yesterday with 25 units of basal and 3 units of bolus. (Patient mostly NPO yesterday). * Fasting stable so continue Lantus 25 units. Patient now ordered diet and undergoing conservative measures. * Continue Novolog Background * Spoke with patient over the phone today. Pt had to take her pump off for i maging. She is agreeable to keeping it disconnected and utilizing SQ basal bolus for inpatient use while NPO and ill. * Discussed outpatient regimen in detail- patient agreeable to Lantus 30 units SQ Q24hrs which is about equivalent to her outpatient basal dose on pump. Will use NovoLog per scale based on basal of 30 units and titrate based on BSG trends. * Will order A1c with AM labs to assess outpatient control * Pt does have/hear a cgm. OK to continue this per cgm policy- patient is aware that we will have to check POC BSG and dose insulin based on POC BSG rather than cgm for accuracy PLAN FOR INPATIENT GLYCEMIC CONTROL: * Hold outpatient insulin pump * Basal insulin * Lantus 25 units SQ Q24hrs * Bolus insulin * NovoLog per scale ACHS or Q6hrs while NPO * Goal Range: Low 110 mg/dL - High 140 mg/dL * Correction Factor: 25 mg/dL/unit * Nutritional / Prandial insulin per carb ratio of 1 unit per 9 grams CHO consumed PLAN FOR DISCHARGE: * HbA1C within goal range. Continue outpatient regimen as long as patient is not having problems with hypoglycemia. * Whenever discharged, patient can use bolus insulin for mealtimes with carbohydrate ratio of 1 unit per 10 grams of carbohydrates consumed. * Connect and turn on insulin pump around 1900 tonight to allow for a little bit of overlap with Lantus coverage.
[2021-01-25] MEDS: SIMETHICONE 80 MG CHEW PO PRN ×2 (11:55→17:59)
[2021-01-25 13:32] LABS: CMV IgG Antibody >10.00 U/mL; CMV IgM Antibody <30.00 AU/mL; Hepatitis A Antibody IgM NON-REACTIVE (NON-REACTIVE); Hepatitis B Core Antibody IgM NON-REACTIVE (NON-REACTIVE)
--- NOTE | 2021-01-25 18:31 | Hospitalist Progress Note ---
Date of Service January 25, 2021 Assessment & Plan (1) Acute pancreatitis: Plan: - on imaging, lipase wnl. no hx etoh abuse, no stones on imaging --> Justin's criteria on admission 0 - severe pancreatitis unlikely. Multiple episodes of pancreatitis over past year --> initial February 2020, thought 2nd to [facility] (also with microcytic anemia at that times and concerns for PUD) Recently dealt with issues at home in November and had issues over past week (also hasn't moved her bowels since last Sunday before admission and suspect worsening abd pain also element of constipation) - Tolerated low fat diet - just having some bloating but gas-x seem to be assisting; Could consider KUB in AM to assess stool burden - Has not required pain medication today - Had episode of diarrhea on 01/24 but no BM today - MRCP - edematous pancreas with peripancreatic stranding and fluid consistent with acute pancreatitis; no fluid collection; no ductal dilatation; no CBD calculi identified; mild gallbladder distention and no pericholecystic fluid; possible sludge within the gallbladder - CMV testing suggest past exposure but no acute illness (positive IgG but negative IgM); negative Hepatitis panel - GI following - planning on outpatient EUS - has appt with Britney on 02/22/2021 -- Assessed ability to get [facility] however earliest appointment is end february - will pursue [place] - Gen Surg following - can plan for outpatient evaluation pending EUS as patient would prefer to await cholecystectomy until EUS; no urgent surgical need for removal at this time -- Recommend low fat diet until EUS or until surgical intervention is completed (2) Abdominal pain: Plan: - IMPROVING -- as above, but also with constipation x 1 week and had been using oxycodone at home for pain control-- see below - If abd pain continues, would pursue GI for EUS/ERCP (inpatient) for further eval of underlying cause of pancreatitis - would need [facility] if needed (3) Constipation: Plan: - As above discomfort lasting x 1 week, came in as pain control was not able to be managed at home - Had diarrhea on 01/24 due to bowel regimen meds - no BM today; consider KUB in AM (4) DUYEN on CPAP: Plan: - May use own CPAP HS (5) GERD (gastroesophageal reflux disease): Plan: - Switch omeprazole for pantoprazole per hospital formulary (6) Type 2 diabetes mellitus with insulin therapy: Plan: - HbA1C 7.0 in August now down to 6.6 - On insulin pump at home --> states she typically runs 120-140s at home - Consult pharmacy for glycemic control Utilizing SSI while inpatient at this time -- she felt symptomatic at 74 per her account and was provided glucagon. Continue to monitor. (7) Hyperlipidemia: Plan: - Continue rosuvastatin (class IV possible cause of pancreatitis, consider stopping if continued pancreatitis with no other cause found) -- Doubt rosuvastatin as cause as she has been on this for several years Plan: - Monitor on low fat diet; outpatient plan for EUS/nikolay pending symptom improvement - Do not anticipate home needs; need work excuse on D/C Admission and Anticipated Discharge Date Admission Date: January 22, 2021 Subjective Reports doing better today. Tolerating a low fat diet but having some bloating but seems the gas-x has been helping. Less distention of the abdomen today. Has not moved her bowels today. Review of Systems Review of Systems: All systems reviewed & are unremarkable except as noted in Subjective Physical Exam Physical Exam: PHYSICAL EXAM General Appearance: WDWN in NAD who is A&O x 3 HEENT: Head is normocephalic/atraumatic; Hearing grossly intact; Mucous membranes moist Neck: Supple; Trachea midline; Neg JVD Heart: RRR with no M/G/R Lungs: CTA in all lung collins bilaterally; Respirations unlabored; Neg accessory muscle use Abdomen: Soft, non-tender, non-distended; Positive BS x 4 quadrants Extremities: Neg cyanosis or edema Neurological: Speech clear; Gross motor/sensory function intact; Neg focal neurologic deficits Psychiatric: Appropriate mood/affect Skin: Normal Color; Warm/Dry Results & Data Results & Data ([facility]) Vital Signs (Past 12 Hours) Vital Signs Temp Pulse Resp BP Pulse Ox 01/25/21 15:29 36.9 C 64 18 138/89 96 01/25/21 07:42 36.8 C 57 L 18 136/87 92 PG Care Time/CCT Total # of Minutes Spent Total Time Spent with Patient: Total time spent is greater than 50% in coordination of care (as documented) at patient's floor/unit and/or counseling patient: Coding Level of Care Code 47269 Subseq Hosp Care Lvl 3 Diagnoses Acute pancreatitis K85.90 Acute pancreatitis complication: unspecified Pancreatitis type: unspecified pancreatitis type Abdominal pain R10.9 Constipation K59.00 DUYEN on CPAP G47.33; Z99.89 GERD (gastroesophageal reflux disease) K21.9 Type 2 diabetes mellitus with insulin therapy E11.9; Z79.4 Hyperlipidemia E78.5 (1) Acute pancreatitis Acute pancreatitis complication: unspecified Pancreatitis type: unspecified pancreatitis type Qualified Code(s): K85.90 - Acute pancreatitis without nec rosis or infection, unspecified
[2021-01-25] MEDS: MELATONIN 3 MG TAB PO SCH (21:02)
[2021-01-25] MEDS: MONTELUKAST SODIUM 10 MG TABLET PO SCH (21:02)
[2021-01-25] MEDS: INSULIN GLARGINE SOLOSTAR 100 UNITS/ML 3 ML PEN SQ SCH (21:03)
[2021-01-25] MEDS: HYDROmorphone INJ 0.5 MG/0.5 ML SYR IV PRN (23:03)
[2021-01-26 08:03] LABS: Basophils # (auto) 0.02 K/uL (0-0.2); Basophils % (auto) 0.4 %; Eosinophils # (auto) 0.33 K/uL (0-0.5); Eosinophils % (auto) 5.9 %; Hematocrit (blood only) 35.6 % (37-47); Hemoglobin 11.9 g/dL (12.0-16.0); Immature Granulocytes # (auto) 0.01 K/uL (0.00-0.02); Immature Granulocytes % (auto) 0.2 %; Lymphocytes # (auto) 1.32 K/uL (1.2-3.4); Lymphocytes % (auto) 23.8 %; Mean Corpuscular Hemoglobin 27.5 pg (25-34); Mean Corpuscular Hgb Conc 33.4 g/dL (32-36); Mean Corpuscular Volume 82.4 fL (80-100); Mean Platelet Volume 9.1 fL (7.4-10.4); Monocytes # (auto) 0.45 K/uL (0.11-0.59); Monocytes % (auto) 8.1 %; Neutrophils # (auto) 3.42 K/uL (1.4-6.5); Neutrophils % (auto) 61.6 %; Platelet Count 277 K/uL (130-400); RDW Coefficient of Variation 12.9 % (11.5-14.5); Red Blood Count 4.32 M/uL (4.2-5.4); White Blood Count 5.55 K/uL (4.8-10.8)
[2021-01-26] MEDS: CITALOPRAM 20 MG TAB PO SCH (08:21)
[2021-01-26] MEDS: CHOLECALCIFEROL 1,000 UNITS 25 MCG TAB PO SCH (08:21)
[2021-01-26] MEDS: PANTOprazole 40 MG TAB PO SCH (08:21)
[2021-01-26] MEDS: SIMETHICONE 80 MG CHEW PO PRN ×2 (08:21→14:29)
[2021-01-26] MEDS: FEXOFENADINE HCL 180 MG TAB PO SCH (08:21)
[2021-01-26] MEDS: MAGNESIUM OXIDE 400 MG TAB PO SCH (08:21)
[2021-01-26 08:52] LABS: Albumin Globulin Ratio 0.6 (0.9-2); Albumin Level 2.8 gm/dl (3.4-5.0); BUN Creatinine Ratio 11.5 (10-20); Bilirubin,Total 0.5 mg/dl (0.2-1); Calcium 9.2 mg/dl (8.5-10.1); Creatinine Clr Calc Pharmacy 69.2 ml/min; Est GFR (African American) 78.2 ml/min; Est GFR (Non-African American) 67.4 ml/min; Globulin 4.5 gm/dl (2.5-4.0); Potassium 3.6 mmol/L (3.5-5.1); Total Protein 7.3 gm/dl (6.4-8.2)
--- NOTE | 2021-01-26 08:52 | Gastroenterology Progress Note ---
Date of Service January 26, 2021 Assessment & Plan (1) Acute pancreatitis: Plan: Acute pancreatitis: Patient admitted with acute pancreatitis. Previous admission for pancreatitis within the last year. Previously acute pancreatitis thought to be related to Victoza use. This medication has since been discontinued. Current pancreatitis ? related to gallbladder sludge. She has been evaluated by general surgery service. She also has an appointment with [facility] for second opinion evaluation scheduled for 02/22/2021 due to her recurrent pancreatitis. She will need an EUS of the pancreas as an outpatient. Discussed f/u with Cassandra with hospitalist team, patient states she will keep care with [facility]. Continue supportive care measures. Please refer to supervising physician addendum for further recommendations. (2) Gallbladder sludge: Admission and Anticipated Discharge Date Admission Date: January 22, 2021 Supervising Physician Co-Signing Physician Notes I have seen and examined the patient. I agree with note above by BREONNA Adams except as noted below. HPI Pt denies abd pain. Tolerating a diet. Pt is being DCed today. PE Abdomen pos bs, soft, no guarding nor rebound A/P pancreatitis --resolved. Pt has f/u for [facility] 02/22/21. Subjective Patient awake alert and oriented this morning. She is requesting Tylenol for headache. She thinks she clenched her teeth in her sleep last night as her jaw somewhat sore. She did advance to a regular diet yesterday. She did okay with this but did require some pain medication last night. States upper abdominal pain was low-grade in intensity but persistent. She denies any pain this morning. States her pain is a 0 out of 10. She denies any nausea or vomiting. She had no bowel movement output yesterday or today. Review of Systems Review of Systems: All systems reviewed & are unremarkable except as noted in HPI & below Physical Exam Gastrointestinal (Abdomen): Inspection/Auscultation: normal bowel sounds Percussion/Palpation: abdomen soft; abdomen nontender (epigastrium), no guarding and abdomen not rigid Results & Data ([facility]) Vital Signs (Past 12 Hours) Vital Signs Temp Pulse Resp BP Pulse Ox 01/26/21 07:09 36.5 C 65 16 123/76 95 01/25/21 22:52 36.7 C 55 L 16 116/76 96 Laboratory Results Laboratory Results - last 24 hr 01/24/21 01/25/21 01/25/21 07:44 09:19 09:19 WBC 4.62 L RBC 4.16 L Hgb 11.3 L Hct 34.2 L MCV 82.2 MCH 27.2 MCHC 33.0 RDW Std Deviation 38.4 RDW Coeff of Samantha 12.7 Plt Count 257 MPV 9.4 Immature Gran % (Auto) 0.2 Neut % (Auto) 64.1 Lymph % (Auto) 23.8 [place] % (Auto) 5.0 Eos % (Auto) 6.5 Baso % (Auto) 0.4 Neut # (Auto) 2.96 Lymph # (Auto) 1.10 L [place] # (Auto) 0.23 Eos # (Auto) 0.30 Baso # (Auto) 0.02 Immature Gran # (Auto) 0.01 Sodium 140 Potassium 3.3 L Chloride 105 Carbon Dioxide 29 Anion Gap 6.0 BUN 4 L Creatinine 0.82 Est Cr Clr Drug Dosing 80.2 Est GFR ( Amer) 93.4 Est GFR (Non-Af Amer) 80.6 BUN/Creatinine Ratio 4.7 L Glucose 159 H POC Glucose Calcium 9.1 Total Bilirubin 0.5 AST 13 L ALT 16 Alkaline Phosphatase 97 Total Protein 7.4 Albumin 2.9 L Globulin 4.5 H Albumin/Globulin Ratio 0.6 L CMV IgM Ab <30.00 CMV IgG Ab/TORCH >10.00 H Hepatitis A IgM Ab NON-REACTIVE Hep B Core IgM Ab NON-REACTIVE 01/25/21 01/25/21 01/25/21 12:04 17:15 20:58 WBC RBC Hgb Hct MCV MCH MCHC RDW Std Deviation RDW Coeff of Samantha Plt Count MPV Immature Gran % (Auto) Neut % (Auto) Lymph % (Auto) [place] % (Auto) Eos % (Auto) Baso % (Auto) Neut # (Auto) Lymph # (Auto) [place] # (Auto) Eos # (Auto) Baso # (Auto) Immature Gran # (Auto) Sodium Potassium Chloride Carbon Dioxide Anion Gap BUN Creatinine Est Cr Clr Drug Dosing Est GFR ( Amer) Est GFR (Non-Af Amer) BUN/Creatinine Ratio Glucose POC Glucose 152 H 153 H 167 H Calcium Total Bilirubin AST ALT Alkaline Phosphatase Total Protein Albumin Globulin Albumin/Globulin Ratio CMV IgM Ab CMV IgG Ab/TORCH Hepatitis A IgM Ab Hep B Core IgM Ab 01/26/21 01/26/21 01/26/21 07:46 07:46 08:05 WBC 5.55 RBC 4.32 Hgb 11.9 L Hct 35.6 L MCV 82.4 MCH 27.5 MCHC 33.4 RDW Std Deviation 39.0 RDW Coeff of Samantha 12.9 Plt Count 277 MPV 9.1 Immature Gran % (Auto) 0.2 Neut % (Auto) 61.6 Lymph % (Auto) 23.8 [place] % (Auto) 8.1 Eos % (Auto) 5.9 Baso % (Auto) 0.4 Neut # (Auto) 3.42 Lymph # (Auto) 1.32 [place] # (Auto) 0.45 Eos # (Auto) 0.33 Baso # (Auto) 0.02 Immature Gran # (Auto) 0.01 Sodium Pending Potassium Pending Chloride Pending Carbon Dioxide Pending Anion Gap Pending BUN Pending Creatinine Pending Est Cr Clr Drug Dosing Pending Est GFR ( Amer) Pending Est GFR (Non-Af Amer) Pending BUN/Creatinine Ratio Pending Glucose Pending POC Glucose 133 H Calcium Pending Total Bilirubin Pending AST Pending ALT Pending Alkaline Phosphatase Pending Total Protein Pending Albumin Pending Globulin Pending Albumin/Globulin Ratio Pending CMV IgM Ab CMV IgG Ab/TORCH Hepatitis A IgM Ab Hep B Core IgM Ab (1) Acute pancreatitis Acute pancreatitis complication: unspecified Pancreatitis type: unspecified pancreatitis type Qualified Code(s): K85.90 - Acute pancreatitis without necrosis or infection, unspecified
[2021-01-26] MEDS: INSULIN ASPART 100 UNITS/ML 3 ML PEN SC SCH ×2 (09:48→14:22)
--- NOTE | 2021-01-26 12:41 | XRay Report ---
KUB CLINICAL HISTORY: Abdominal pain and bloating. COMPARISON STUDY: CT of the abdomen and pelvis January 22, 2021. FINDINGS: The bowel gas pattern is normal. There is no radiographic evidence for a bowel obstruction. Although sensitivity is diminished, there is no evidence for free air. Pelvic calcifications represe nt phleboliths. IMPRESSION: No evidence for a bowel obstruction. Unremarkable bowel gas pattern. ACT 112: Negative or not required by law. Electronically signed by: Magdi eRdding M.D. 01/26/2021 12:40 PM
--- NOTE | 2021-01-26 16:04 | Discharge Summary ---
Date of Service January 26, 2021 Admission HPI Per Admitting Provider Annel Saldana is a 55 year old female who presents to the ER with epigastric pain that is not improving and known diagnosis of pancreatitis. She reports initial symptoms approximately 1 week ago on Sunday with epigastric pain. She has been on clear liquids since then and using oxycodone for pain relief. She has 2 other episodes of pancreatitis over the last year. Initial episode in February was blamed on Victoza. She had another mild episode in November which was treated successfully at home. Pain is epigastric and RUQ. Constant since Sunday. No radiation. Severity 8/10 at worse, 5/10 currently after Fentanyl given in the ER. She denies any alcohol since February and rarely prior to that. Triglycerides normal on last occasion. No recent changes to her medications. She has no known autoimmune conditions. In the ER lipase levels were normal however CT A/P showing increased peripancreatic stranding since Jan 18 scan. She was referred to medicine for admission and ongoing management of acute pancreatitis. Principal Diagnosis Acute Pancreatitis Discharge Exam PHYSICAL EXAM General Appearance: WDWN in NAD who is A&O x 3 HEENT: Head is normocephalic/atraumatic; Hearing grossly intact; Mucous membranes moist Neck: Supple; Trachea midline; Neg JVD Heart: RRR with no M/G/R Lungs: CTA in all lung collins bilaterally; Respirations unlabored; Neg accessory muscle use Abdomen: Soft, non-tender, non-distended; Positive BS x 4 quadrants Extremities: Neg cyanosis or edema Neurological: Speech clear; Gross motor/sensory function intact; Neg focal neurologic deficits Psychiatric: Appropriate mood/affect Skin: Normal Color; Warm/Dry Discharge Data Allergies Allergy/AdvReac Type Severity Reaction Status Date / Time Sulfa (Sulfonamide Allergy Intermediate Hives Verified 01/22/21 12:04 Antibiotics) adhesive tape AdvReac Intermediate redness/irr Verified 01/22/21 12:04 itation morphine AdvReac Intermediate VOMITING, Verified 01/22/21 12:04 NAUSEA simvastatin AdvReac Intermediate MUSCLE PAIN Verified 01/22/21 12:04 pseudoephedrine AdvReac Mild Tachycardia Verified 01/22/21 12:04 Consultations 01/22/21 13:07 ED Decision to Admit Stat 01/23/21 08:26 Consult Gastroenterology Routine 01/23/21 11:12 Consult General Surgery Routine Ordered Studies Abdomen/Pelvis CT 01/22/21 11:17 CT OF THE ABDOMEN AND PELVIS WITH CONTRAST CLINICAL HISTORY: worsening pancreatitis symptoms/pain COMPARISON STUDY: CT of the abdomen and pelvis January 18, 2021. TECHNIQUE: Following IV administration of 94 mL of Optiray, axial images of the abdomen and pelvis were obtained from the lung bases to the proximal femurs. Images were reviewed in the axial, sagittal, and coronal planes. IV contrast was administered without complication. Automated exposure control was utilized for the study. A dose lowering technique was utilized adhering to the principles of ALARA. CT DOSE: 917.52 mGy.cm FINDINGS: Lung bases are unremarkable. No pneumatosis, free air or portal venous gas is present. There is possible layering material within the gallbladder. There is no pericholecystic infiltration. There is no biliary or pancreatic ductal dilatation. Moderate peripancreatic stranding has increased since CT of January 18, 2021. This extends into the mesentery. There is no peripancreatic fluid collection. Splenic vein is patent. There is no evidence for gland necrosis. The adrenal glands and kidneys are normal. There is no hydronephrosis. Borderline splenomegaly is unchanged. There is a splenule. The appendix is normal. The caliber and wall thickness of small and large bowel are normal. Small amount of fluid within the pelvis is noted. No acute fracture or suspicious lesion is identified within the visualized skeletal structures. IMPRESSION: 1. Increase in peripancreatic stranding and fluid since CT of January 18, 2021. This is consistent with acute pancreatitis. No evidence for gland necrosis. No peripancreatic fluid collection. 2. Small amount of fluid within the pelvis. 3. No bowel obstruction. No bowel wall thickening. ACT 112: Negative or not required by law. Electronically signed by: Magdi Redding M.D. 01/22/2021 12:46 PM Chest X-Ray 01/22/21 13:14 XR chest 1V portable CLINICAL HISTORY: hypoxia COMPARISON STUDY: Chest radiograph March 19, 2020. FINDINGS: Lung volumes are normal. Lungs are clear. There is no pneumothorax or pleural effusion. Cardiac size is normal. Mediastinal contours are normal. There is no evidence for pulmonary edema. IMPRESSION: No acute cardiopulmonary findings. ACT 112: Negative or not required by law. Electronically signed by: Magdi Redding M.D. 01/22/2021 1:26 PM Gallbladder Ultrasound 01/22/21 13:52 US gallbladder CLINICAL HISTORY: acute pancreatitis, r/o cholecystitis RUQ pain COMPARISON STUDY: Right upper quadrant ultrasound December 08, 2020. CT of the abdomen and pelvis performed earlier today. FINDINGS: There is no biliary ductal dilatation. The common bile duct measures 5 mm in caliber. No hepatic lesions are identified. Pancreas is largely obscured by overlying bowel gas. There is no gallbladder wall thickening. Moderate sludge within the gallbladder is noted. No gallstones are identified. Prominent peripancreatic lymph node is incidentally noted. There is no right hydronephrosis. IMPRESSION: 1. No gallstones or biliary ductal dilatation. 2. Moderate sludge within the gallbladder. No gallbladder wall thickening. 3. Largely obscured pancreas. ACT 112: Negative or not required by law. Electronically signed by: Magdi Redding M.D. 01/22/2021 3:07 PM Cholangiopancreatography MRI 01/23/21 15:04 MRCP CLINICAL HISTORY: Recurrent pancreatitis. TECHNIQUE: Utilizing a 1.5 Rivka magnet and dedicated coil, multiplanar, multiecho imaging of the upper abdomen was performed utilizing heavily T2 weighted pulsing sequences without IV contrast. COMPARISON STUDY: CT of the abdomen and pelvis and right upper quadrant ultrasound January 22, 2021. FINDINGS: Cardiomegaly is incidentally noted. The gallbladder is mildly distended. No pericholecystic fluid is noted. No gallstones are noted within the gallbladder by MRI. There may be minimal sludge within the gallbladder. No biliary ductal dilatation is present. Common bile duct measures 3 mm in caliber. No common bile duct calculi are identified although distal common bile duct is slightly obscured. The pancreas is edematous with peripancreatic stranding and fluid. No peripancreatic fluid collection is present. There is no pancreatic ductal dilatation. Unenhanced images of the spleen, adrenal glands and kidneys are unremarkable. Caliber of visualized small and large bowel are normal. IMPRESSION: 1. Edematous pancreas with peripancreatic stranding and fluid consistent with acute pancreatitis. No peripancreatic fluid collection. 2. No biliary ductal dilatation. No common bile duct calculi identified. 2. Mild gallbladder distention. No pericholecystic fluid. Possible sludge within the gallbladder. No gallstones identified. ACT 112: Negative or not required by law. Electronically signed by: Magdi Redding M.D. 01/24/2021 7:38 AM KUB X-Ray 01/26/21 10:12 KUB CLINICAL HISTORY: Abdominal pain and bloating. COMPARISON STUDY: CT of the abdomen and pelvis January 22, 2021. FINDINGS: The bowel gas pattern is normal. There is no radiographic evidence for a bowel obstruction. Although sensitivity is diminished, there is no evidence for free air. Pelvic calcifications represent phleboliths. IMPRESSION: No evidence for a bowel obstruction. Unremarkable bowel gas pattern. ACT 112: Negative or not required by law. Electronically signed by: Magdi Redding M.D. 01/26/2021 12:40 PM Hospital Course (1) Acute pancreatitis: - on imaging, lipase wnl. no hx etoh abuse, no stones on imaging --> Justin's criteria on admission 0 - severe pancreatitis unlikely. Multiple episodes of pancreatitis over past year --> initial February 2020, thought 2nd to [facility] (also with microcytic anemia at that times and concerns for PUD) Recently dealt with issues at home in November and had issues over past week (also hasn't moved her bowels since last Sunday before admission and suspect worsening abd pain also element of constipation) - Reports her father had similar issues and was found to have lymphoma which was sitting behind the pancreas - Tolerated low fat diet - just having some bloating but gas-x seem to be assisting; -- KUB also reveals a good amount of stool which can definitely be the culprit of her bloating and discomfort as it was not the same pain level like when she came in. Did recommend bowel regimen to utilize at home - Had episode of diarrhea on 01/24 but as mentioned above more stool present - MRCP - edematous pancreas with peripancreatic stranding and fluid consistent with acute pancreatitis; no fluid collection; no ductal dilatation; no CBD calculi identified; mild gallbladder distention and no pericholecystic fluid; possible sludge within the gallbladder - CMV testing suggest past exposure but no acute illness (positive IgG but negative IgM); negative Hepatitis panel - GI following - planning on outpatient EUS - has appt with [facility] on 02/22/2021 -- Assessed ability to get [facility] EUS however earliest appointment is end of February - will pursue [place] but recommend 6-8 weeks after pancreatitis before performing EUS - Gen Surg followed - can plan for outpatient evaluation pending EUS as patient would prefer to await cholecystectomy until EUS; no urgent surgical need for removal at this time -- Uncertain if this will help with her symptoms or not - as question of whether sludge could be contributing to her pancreatitis episodes -- Recommend low fat diet until EUS or until surgical intervention is completed (2) Abdominal pain: - RESOLVED -- as above, but also with constipation x 1 week and had been using oxycodone at home for pain control-- see below (3) Constipation: - As above discomfort lasting x 1 week, came in as pain control was not able to be managed at home - Had diarrhea on 01/24 due to bowel regimen meds - KUB as above (4) DUYEN on CPAP: - May use own CPAP HS (5) GERD (gastroesophageal reflux disease): - Omeprazole (6) Type 2 diabetes mellitus with insulin therapy: - HbA1C 7.0 in August now down to 6.6 - On insulin pump at home --> states she typically runs 120-140s at home - Plan to use bolus dosing then restart insulin pump around 1900 on day of discharge to allow for some Lantus washout that was given today to prevent lows (7) Hyperlipidemia: - Continue rosuvastatin (class IV possible cause of pancreatitis, consider stopping if continued pancreatitis with no other cause found) -- Doubt rosuvastatin as cause as she has been on this for several years - Bowel Regimen - F/U with [facility] in February Total Time Total Time Spent Total Time Spent (In Minutes): Spent greater than 30 minutes preparing patient for discharge. This includes discussion with patient/family, assessment, intervention, medication rec onciliation, and coordination of care. Discharge Plan Discharge Items Patient Disposition: Home - Self-Care Reason For Visit: ACUTE PANCREATITIS Discharge Diagnosis: Acute Pancreatitis Activity: Resume your previous activity Non-emergency contact: Primary Care Provider Call non-emergency contact if: you have any medication questions, your symptoms worsen and you have a fever Follow-up/Referrals: Genna Brown MD [Physician] - (Can make an appointment after you have EUS pending that evaluation for gallbladder removal) Elva Troy CRNP [Primary Care Provider] - 02/03/21 4:10 pm Diet: Carb Consistent or DM2 and Low Fat Addtl Attending Provider Instructions: Acute Pancreatitis: - Your were found on imaging to have edema or swelling on the pancreas which is consistent with pancreatitis. No signs of abscess or duct dilation to suggest a stone -- There is some mild gallbladder distention with sludge but no fluid or signs of an acute infected gallbladder - Your lipase which is a pancreatic enzyme was normal which is not uncommon when you you have had multiple bouts - You have an appointment with GI in [place] to further look into your ongoing issues with pancreatitis. Our GI team here did assist with coordinating and EUS of the pancreas but they do recommend about 6-8 weeks from pancreatitis as they dont like to do the scope while you have acute pancreatitis -- Keep your appointment with the GI doctors - The [facility] surgery team's information will be in the discharge packet should you decide after EUS to that the next best thing is the gallbladder removal Constipation: - As discussed you are full of poo :P - This can definitely add to your bloating, belly pain, and gas - Recommend Miralax at least once daily for a couple days and can even do twice a day to help have a bowel movement - You can add Colace (Docusate Sodium) which is a stool softener and not a laxative and safe to use 100 mg twice a day - You can continue the Gas-X to help with bloating as this seemed to help. Can send a prescription but this is over the counter as well Diabetes: - Per the diabetic pharmacist -- Can use bolus insulin for mealtimes with a carb ratio of 1 unit per 10 grams and turn on insulin pump around 7 PM to allow some time for the Lantus you received here in the hospital to wear off. Home Medications: - Continue home medications as previously prescribed as we did not make any changes to these Pending Studies at Discharge: No Stand-Alone Forms: [employer], Work/School Release, Smoking Cessat ion Medications and DC Order Prescriptions: New simethicone [Mi-Acid Gas Relief(simethicon)] 80 mg Tablet,Chewable 80 mg PO Q6H PRN (Reason: abdominal distention) 7 Days Qty: 28 RF: 0 Continued citalopram [Celexa] 40 mg tablet 60 mg PO DAILY RF: 0 fexofenadine [Massiel Allergy] 180 mg tablet 180 mg PO DAILY Qty: 30 RF: 0 dicyclomine 20 mg tablet 20 mg PO Q6H PRN (Reason: .) RF: 0 clobetasol 0.05 % cream 1 appln topical BID PRN (Reason: Skin Irritation) RF: 0 rosuvastatin [Crestor] 40 mg tablet 40 mg PO HS Qty: 90 RF: 0 magnesium oxide 400 mg (241.3 mg magnesium) tablet 400 mg PO BID RF: 0 omeprazole 20 mg tablet,delayed release (DR/EC) 20 mg PO BID RF: 0 albuterol sulfate [ProAir HFA] 90 mcg/actuation HFA aerosol inhaler 2 puffs INH Q6H PRN (Reason: Shortness Of Breath Or Wheezing) RF: 0 montelukast 10 mg tablet 10 mg PO HS RF: 0 triamcinolone acetonide 0.5 % cream 1 appln topical 2XWK RF: 0 valacyclovir 1 gram tablet 1,000 mg PO DAILY PRN (Reason: Cold Sores) RF: 0 cholecalciferol (vitamin D3) [Vitamin D3] 25 mcg (1,000 unit) capsule 1,000 unit PO QAM RF: 0 fluticasone propion-salmeterol [Advair Diskus] 500-50 mcg/dose blister with device 1 inh INHALATION QAM PRN (Reason: Shortness Of Breath) RF: 0 melatonin 5 mg Tablet 5 mg PO HS RF: 0 cyanocobalamin (vitamin B-12) [Vitamin B-12] 500 mcg Tablet 500 mcg PO QAM RF: 0 Novolin R Regular U-100 Insuln 100 unit/mL solution 50 unit SQ UD RF: 0 zinc acetate 50 mg (zinc) Capsule 50 mg PO DAILY RF: 0 hydrocodone-acetaminophen 5-325 mg tablet 1 - 2 tab PO Q6H PRN (Reason: pain) Qty: 14 RF: 0 promethazine 25 mg tablet 25 mg PO Q6H PRN (Reason: nausea and vomiting) Qty: 10 RF: 0 oxycodone 5 mg tablet 5 mg PO Q6H PRN (Reason: pain) Qty: 10 RF: 0 ondansetron HCl [Zofran] 4 mg tablet 4 mg PO Q6H Qty: 10 RF: 0 Stool Softener 50 mg Capsule 0 mg PO ONCE PRN (Reason: Constipation) RF: 0 Discharge Orders: Discharge Order (Routine); Ordered 01/26/21 Ordered By: Laura Olivas/Other Patient Handouts: Low-Fat Cooking Tips, Managing Type 2 Diabetes Admission Data Admit Date/Time: 01/22/21 13:31 Attending Provider: Moncho West Admit Provider: Andrew Sanchez Primary Care Provider: Elva Troy Other Providers: Andrew Sanchez ; Arturo Hand ; Genna Brown Other Interventions: Discharge Summary Assessment (RN) Last Done: 01/26/21 15:42 Supervising Physician Co-Signing Physician Notes Attending note: patient seen and examined with Laura Stuart PA-C. I agree with her discharge summary. I personally reviewed the labs and imaging findings. patient feeling much better, eating an drinking well, no abdominal pain moving her bowels, KUB shows normal bowel gas pattern - Pancreatitis: resolved with bowel rest and IV fluids, advancing diet and tolerating well follow up with PCP - Constipation: recommend stool softener, daily Miralax, stay well hydrated and stay active to promote regular bowel movements Coding Level of Care Code D/C DAY MANAGEMENT >30 MINS Diagnoses Acute pancreatitis K85.90 Acute pancreatitis complication: unspecified Pancreatitis type: unspecified pancreatitis type Abdominal pain R10.9 Constipation K59.00 DUYEN on CPAP G47.33; Z99.89 GERD (gastroesophageal reflux disease) K21.9 Type 2 diabetes mellitus with insulin therapy E11.9; Z79.4 Hyperlipidemia E78.5
== END 2021-01-26 17:22 | disposition home or self-care (01) | DRG 439 ==
LOC: ED 10:41 → 3N 13:31 → SUATTDRO 13:31 → 3N 14:09